=== PATIENT | female | born 1960 | race Caucasian/White ===

== ENCOUNTER 2016-09-07 08:54 | Emergency (ER) | payer MEDICARE, MEDICAID ==
[2016-09-07 09:38] LABS: Prothrombin Time (Patient) 18.4 Seconds (9.4-11.4)
[2016-09-07 09:40] LABS: INR 1.77 INR (0.90-1.10)
[2016-09-07 09:48] LABS: Urine Bilirubin Negative (NEGATIVE); Urine Blood Negative /ul (NEGATIVE); Urine Ketone Negative (NEGATIVE); Urine Nitrite Negative (NEGATIVE); Urine Protein Negative (NEGATIVE); Urine Specific Gravity 1.025 SP.GR. (1.005-1.010); Urine Urobilinogen Normal (NORMAL); Urine pH 6.5 pH (5.0-7.0)
[2016-09-07 09:57] LABS: Urine Appearance Clear; Urine Bacteria 2+; Urine Color Yellow; Urine RBC None Seen /hpf (0-5); Urine WBC 0-5 /hpf (0-5)
[2016-09-07 10:14] VITALS: BP 133/80
--- NOTE | 2016-09-07 10:23 | ERNOTE ---
ER Female HPI Stated Complaint: UTI Presenting Symptoms: dysuria Time Seen by Provider: 09/07/16 09:10 Source: patient Exam Limitations: no limitations Immunizations: IMMUNIZATION HX Immunizations Up to Date Yes History of Influenza Vaccine Yes Hx Pneumococcal Vaccination No Allergies/Adverse Reactions: Allergies No Known Allergies Allergy (Verified 09/07/16 09:10) Home Medications: HOME MEDICATIONS Lisinopril 40 mg PO DAILY 08/10/13 [Last Taken 08/02/14] Omeprazole [Prilosec] 40 mg PO DAILY 12/26/13 [Last Taken 08/02/14] Sertraline HCl 50 mg PO DAILY 08/10/16 [Last Taken Unknown] Warfarin Sodium [Coumadin] 12 mg PO DAILY 08/10/16 [Last Taken Unknown] Nitrofurantoin/Nitrofuran Mac [Macrobid] 100 mg PO BID #20 cap 09/07/16 [Last Taken Unknown] - History of Present Illness Narrative: On 08/22/2016 this 55-year-old woman fell resulting in some mild low back pain which has persisted. The back pain has grown a little worse, and is exacerbated by moving turning or changing position. About one week ago she began to also have some dysuria, which has worsened. Now there is also urgency of urination and frequency of urination, as well as voiding in small amounts. There has been no fever, nor any other symptoms. She does note her urine is a little more yellow than normal. She takes Coumadin every day because of a previous stroke. Timing: Present: getting worse Quality: Present: mild Onset Location: Present: urethral Radiation: Present: none Activities at Onset: Present: none Prior Abdominal Problems: Present: similar symptoms Associated Symptoms: Present: dysuria, urinary frequency, polyuria Prior Treatment: Absent: recently seen, currently on antibiotics Review of Systems - Review of Systems Constitutional: Present: no symptoms reported EYE: Present: no symptoms reported ENT: Present: no symptoms reported Respiratory: Present: no symptoms reported Cardiology: Present: no symptoms reported Gastrointestinal/Abdominal: Present: no symptoms reported Genitourinary: Present: See HPI Musculoskeletal: Present: See HPI Skin: Present: no symptoms reported Neurological: Present: no symptoms reported Endocrine: Present: no symptoms reported Hematologic/Lymphatic: Present: no symptoms reported Psych: Present: no symptoms reported All Other Systems: All systems neg except as marked - Patient's Past Medical History Patient History - Medical: Chronic Pain, Kidney stone, Renal Disease Patient History - Cardiac/Respiratory: CVA/Stroke, Hypertension Patient History - Cancer: No Hx of Cancer Patient History - Surgical Procedures: Back Surgery, Hysterectomy, Other - Family History Mother Family History - Cardiac/Respiratory: No pertinent hx dad Family History - Medical: Diabetes Type 2 Family History - Cardiac/Respiratory: No pertinent hx - Social History Living Situations: home Does anyone smoke in the home?: No Alcohol Use: none Drug Use: none Physical Exam - Physical Exam General Appearance: Present: wd/wn, alert, no apparent distress, other - uses a cane, but it is in the car, didn't bring it into the ER Eye Exam: Normal inspection: bilateral, PERRL: bilateral, EOMI: bilateral Ears, Nose, Throat: Present: normal ENT inspection, hearing grossly normal Neck: Present: normal inspection Respiratory: Present: no respiratory distress, normal breath sounds Cardiovascular/Chest: Present: regular rate, rhythm, no murmur Gastrointestinal/Abdominal: Present: normal bowel sounds, nontender, nondistended, soft, no organomegaly Back Exam: Present: normal inspection, no CVA tenderness, other - tender across low back Extremity Exam: Present: normal inspection, no edema Neurological Exam: Present: alert, oriented, normal mood/affect Skin Exam: Present: normal color, warm/dry ED Progress - Results and Orders Patient's Lab Results:: I have reviewed the patient's lab results. - Vital Signs Patient's Vital Signs:: I have reviewed the patient's vital signs. Vital Signs: Vital Signs 09/07/16 09/07/16 09:05 10:13 Temperature 35.9 C L Pulse Rate 88 74 Respiratory 12 12 Rate Blood Pressure 109/51 133/80 O2 Sat by Pulse 94 98 Oximetry - Progress/Reassessment Chief Complaint: Genitourinary Problem Departure Clinical Impression: Dysuria Low back pain Qualifiers: Chronicity: acute Back pain laterality: midline Sciatica presence: without sciatica Qualified Code(s): M54.5 - Low back pain - Departure Disposition: Home self-care Condition: Good Instructions: Dysuria, Back Pain, Adult Additional Instructions: We are starting an antibiotic today. For this reason, obtain an extra Prothrombin time in 2 days. Followup with your doctor later this week. Prescriptions: Nitrofurantoin/Nitrofuran Mac [Macrobid] 100 mg PO BID #20 cap
== END 2016-09-07 10:29 | disposition home or self-care (01) ==
LOC: ER 08:54
DX: R30.0 Dysuria (principal); M54.5 Low back pain; K12.0 Recurrent oral aphthae; Z90.710 Acquired absence of both cervix and uterus; I10 Essential (primary) hypertension

== ENCOUNTER 2016-09-17 15:17 | Emergency (ER) | payer MEDICARE, MEDICAID ==
[2016-09-17] MEDS ORDERED: oxyCODONE HCL/ACETAMINOPHEN 1 TAB TABLET PO ONE (15:32)
[2016-09-17] MEDS ORDERED: ORPHENADRINE CITRATE 100 MG TABLET.SA PO ONE ×2 (15:32→15:40)
--- NOTE | 2016-09-17 15:37 | ERNOTE ---
Back Pain ER HPI Date of Service: 09/17/16 Presenting Symptoms: injury/pain to back Time Seen by Provider: 09/17/16 15:29 Source: patient Exam Limitations: no limitations Immunizations: IMMUNIZATION HX Immunizations Up to Date Yes History of Influenza Vaccine Yes Hx Pneumococcal Vaccination No Allergies/Adverse Reactions: Allergies No Known Allergies Allergy (Verified 09/17/16 15:27) Home Medications: HOME MEDICATIONS Lisinopril 40 mg PO DAILY 08/10/13 [Last Taken 08/02/14] Omeprazole [Prilosec] 40 mg PO DAILY 12/26/13 [Last Taken 08/02/14] Sertraline HCl 50 mg PO DAILY 08/10/16 [Last Taken Unknown] Warfarin Sodium [Coumadin] 12 mg PO DAILY 08/10/16 [Last Taken Unknown] Acyclovir [Zovirax 5% Ointment] 1 appl TP 5XD #1 tube 09/07/16 [Last Taken Unknown] Orphenadrine Citrate [Norflex] 100 mg PO Q12H #10 tablet.sa 09/17/16 [Last Taken Unknown] Oxycodone HCl/Acetaminophen [Percocet 5-325 mg Tablet] 1 each PO Q8H #20 tablet 09/17/16 [Last Taken Unknown] Narrative: Patient comes due to a generalized back pain. Patient reported that her back pain got worse after her fall on 2015. Patient has not been able to follow up with her Primary Care Provider. Timing: Reports: constant, getting worse Quality/Severity: Reports: moderate Location of pain: Reports: upper back, mid back, lower back, no radiation Activities at Onset: Reports: none Recent Injury?: Reports: yes - 2015 Possible Precipitating Factor: Reports: lifting, turning/bending, trauma Modifying Factors - (Improves): Reports: nothing Modifying Factors - (Worsens): Reports: supine position, upright position, movement to right, movement to left, movement flexion, cough/deep breaths Associated Symptoms: Denies: fever/chills, sweating, constipation/incontinence, nausea/vomiting, problems urinating, difficulty walking, lightheadedness, numbess/weakness in legs Prior Treament: Reports: recently seen - Patient was seen due to her fall at this facility Review of Systems - Review of Systems Constitutional: Present: no symptoms reported EYE: Present: no symptoms reported ENT: Present: no symptoms reported Respiratory: Present: no symptoms reported Gastrointestinal/Abdominal: Present: no symptoms reported Genitourinary: Present: no symptoms reported Musculoskeletal: Present: muscle pain, muscle stiffness Skin: Present: no symptoms reported Neurological: Present: no symptoms reported Endocrine: Present: no symptoms reported Hematologic/Lymphatic: Present: no symptoms reported Psych: Present: no symptoms reported - Patient's Past Medical History Patient History - Medical: Chronic Pain, Kidney stone, Renal Disease Patient History - Cardiac/Respiratory: CVA/Stroke, Hypertension Patient History - Cancer: No Hx of Cancer Patient History - Surgical Procedures: Back Surgery, Hysterectomy, Other - Family History Mother Family History - Cardiac/Respiratory: No pertinent hx dad Family History - Medical: Diabetes Type 2 Family History - Cardiac/Respiratory: No pertinent hx - Social History Living Situations: home Does anyone smoke in the home?: No Smoking Status: Current every day smoker Have you smoked in the past 12 months: Yes Alcohol Use: none Drug Use: none Physical Exam - Physical Exam General Appearance: Present: wd/wn, alert, no apparent distress Ears, Nose, Throat: Present: normal ENT inspection, hearing grossly normal, normal pharynx Neck: Present: normal inspection, nontender Respiratory: Present: no respiratory distress, normal breath sounds, no accessory muscle use, chest nontender, lungs clear Cardiovascular/Chest: Present: regular rate, rhythm, no murmur, normal peripheral pulses Gastrointestinal/Abdominal: Present: normal bowel sounds, nontender, nondistended, soft, no organomegaly Back Exam: Present: no CVA tenderness, muscle spasm - There is tenderness all over the back area. No mid line tenderness found.. Absent: vertebral tenderness Neurological Exam: Present: alert, oriented, normal mood/affect, no motor/ sensory deficits Skin Exam: Present: normal color, warm/dry Lymphatic Exam: Present: no adenopathy ED Progress - Date and Time Seen: Date and Time: 09/17/16 15:41 Patient with no fever, no urine retention and with a generalized back pain. Patient will be given pain medication and muscle relaxant and is to follow up with her PCP. - Vital Signs Patient's Vital Signs:: I have reviewed the patient's vital signs. Vital Signs: Vital Signs 09/17/16 15:25 Temperature 36.3 C L Pulse Rate 95 Respiratory 14 Rate Blood Pressure 179/84 O2 Sat by Pulse 98 Oximetry - Progress/Reassessment Chief Complaint: Back Pain - Transfer of Care Expected Disposition: Discharge Departure Clinical Impression: Muscle spasm Back pain Qualifiers: Back pain location: low back pain Chronicity: unspecified Back pain laterality : unspecified Sciatica presence: without sciatica Qualified Code(s): M54.5 - Low back pain - Departure Disposition: Home self-care Condition: Stable Instructions: Back Pain, Adult, Muscle Cramps and Spasms Referrals: [Primary Care Provider] - Prescriptions: Orphenadrine Citrate [Norflex] 100 mg PO Q12H #10 tablet.sa Oxycodone HCl/Acetaminophen [Percocet 5-325 mg Tablet] 1 each PO Q8H #20 tablet
[2016-09-17] MEDS ORDERED: oxyCODONE HCL/ACETAMINOPHEN 1 TAB TABLET ONE (15:39)
[2016-09-17 15:57] VITALS: BP 145/95
== END 2016-09-17 15:54 | disposition home or self-care (01) ==
LOC: ER 15:17
DX: M62.830 Muscle spasm of back (principal); M54.5 Low back pain; F17.210 Nicotine dependence, cigarettes, uncomplicated; Z87.442 Personal history of urinary calculi; I10 Essential (primary) hypertension; Z79.01 Long term (current) use of anticoagulants

== ENCOUNTER 2016-09-24 13:19 | Emergency (ER) | payer MEDICARE, MEDICAID ==
[2016-09-24 13:29] VITALS: BP 144/82
--- NOTE | 2016-09-24 14:20 | ERNOTE ---
Back Pain ER HPI Date of Service: 09/24/16 Presenting Symptoms: injury/pain to back Time Seen by Provider: 09/24/16 13:45 Source: patient Exam Limitations: no limitations Immunizations: IMMUNIZATION HX Immunizations Up to Date Yes History of Influenza Vaccine Yes Hx Pneumococcal Vaccination No Allergies/Adverse Reactions: Allergies No Known Allergies Allergy (Verified 09/24/16 13:29) Home Medications: HOME MEDICATIONS Lisinopril 40 mg PO DAILY 08/10/13 [Last Taken 08/02/14] Omeprazole [Prilosec] 40 mg PO DAILY 12/26/13 [Last Taken 08/02/14] Sertraline HCl 50 mg PO DAILY 08/10/16 [Last Taken Unknown] Warfarin Sodium [Coumadin] 12 mg PO DAILY 08/10/16 [Last Taken Unknown] Acyclovir [Zovirax 5% Ointment] 1 appl TP 5XD #1 tube 09/07/16 [Last Taken Unknown] Orphenadrine Citrate [Norflex] 100 mg PO Q12H #10 tablet.sa 09/17/16 [Last Taken Unknown] Oxycodone HCl/Acetaminophen [Percocet 5-325 mg Tablet] 1 each PO Q8H #20 tablet 09/17/16 [Last Taken Unknown] Orphenadrine Citrate [Norflex] 100 mg PO Q12H PRN #12 tablet.sa 09/24/16 [Last Taken Unknown] oxyCODONE HCL/ACETAMINOPHEN [Percocet 5 MG/325 MG] 1 tab PO TID PRN #10 tablet 09/24/16 [Last Taken Unknown] Narrative: Patient presents for being out of her pain medications. She relates that she had an appointment today at her doctor in [place] to get medications refilled but missed this d/t her mother being sick. She had a fall in July and has been having back pain thoracic ever since. She was on percocet and norflex but is now out of these medications. This is the exact same pain she has been having, nothgin different about it. Has been seen for this. No new Sx. No acute N/T/W. No fever. No CP or SOB. Pain can be severe with spasm and movement. meds helped when she had them. Timing: Reports: constant Quality/Severity: Reports: severe Location of pain: Reports: mid back Activities at Onset: Reports: other - fall Recent Injury?: Reports: yes Possible Precipitating Factor: Reports: fall/near fall Modifying Factors - (Improves): Reports: other - pmeds - Percocet and Norflex Modifying Factors - (Worsens): Reports: movement to right, movement to left Associated Symptoms: Denies: fever/chills, constipation/incontinence, difficulty walking, numbess/weakness in legs Prior Treament: Reports: treated by physician Review of Systems - Review of Systems Constitutional: Absent: fever Respiratory: Absent: shortness of breath Cardiology: Absent: chest pain Gastrointestinal/Abdominal: Absent: abdominal pain Genitourinary: Absent: dysuria Musculoskeletal: Present: See HPI Skin: Absent: rash Neurological: Absent: weakness, numbness, tingling - Patient's Past Medical History Patient History - Medical: Chronic Pain, Kidney stone, Renal Disease Patient History - Cardiac/Respiratory: CVA/Stroke, Hypertension Patient History - Cancer: No Hx of Cancer Patient History - Surgical Procedures: Back Surgery, Hysterectomy, Other - Family History Mother Family History - Cardiac/Respiratory: No pertinent hx dad Family History - Medical: Diabetes Type 2 Family History - Cardiac/Respiratory: No pertinent hx - Social History Living Situations: home Does anyone smoke in the home?: No Alcohol Use: none Drug Use: none Physical Exam - Physical Exam General Appearance: Present: alert, no apparent distress Eye Exam: Normal inspection: bilateral Ears, Nose, Throat: Present: normal ENT inspection Neck: Present: normal inspection Respiratory: Present: no respiratory distress, normal breath sounds, no accessory muscle use, lungs clear Cardiovascular/Chest: Present: regular rate, rhythm Gastrointestinal/Abdominal: Present: normal bowel sounds, nontender, soft, no organomegaly Back Exam: Present: other - No point vertebral tendenress. there is muscular tenderness right thoracic paraspinal muscles diffusely. This completely reproduces her pain.. 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 Absent: motor weakness DTR: N=norm/NB=norm/brisk/A=abs/DD=dull/dimin/HC=hyperactive: Knee (R): Normal, Knee (L): Normal Skin Exam: Absent: skin rash ED Progress - Vital Signs Patient's Vital Signs:: I have reviewed the patient's vital signs. Vital Signs: Vital Signs 09/24/16 13:25 Temperature 36.0 C L Pulse Rate 92 Respiratory 12 Rate Blood Pressure 144/82 O2 Sat by Pulse 100 Oximetry - Progress/Reassessment Chief Complaint: Back Pain Progress:: Unchanged Progress Note-Subjective: 09/24/16 14:14 Patient wishes a medication refill. I offered her x-rays but she declines this , understands risks and benefits. No suggestion of neuro deficit or infectious process. I discussed warning signs and reasons to return as well as the need for close f/u. Departure Clinical Impression: Back pain - Departure Disposition: Home self-care Condition: Stable Instructions: Back Pain, Adult Additional Instructions: Rest. No driving with pain medications. See your doctor within the next 3 days. Return if you change your mind about having x-rays as offered, if you develop numbness, tingling, weakness or if your condition worsens or changes in any way. Prescriptions: Orphenadrine Citrate [Norflex] 100 mg PO Q12H PRN #12 tablet.sa PRN Reason: Pain oxyCODONE HCL/ACETAMINOPHEN [Percocet 5 MG/325 MG] 1 tab PO TID PRN #10 tablet PRN Reason: Pain
== END 2016-09-24 14:45 | disposition home or self-care (01) ==
LOC: ER 13:19
DX: M54.9 Dorsalgia, unspecified (principal); Z87.442 Personal history of urinary calculi; I10 Essential (primary) hypertension; Z79.01 Long term (current) use of anticoagulants; I63.9 Cerebral infarction, unspecified

== ENCOUNTER 2016-10-11 15:06 | Emergency (ER) | payer MEDICARE, MEDICAID ==
[2016-10-11 15:17] VITALS: BP 189/98
[2016-10-11] MEDS ORDERED: KETOROLAC TROMETHAMINE 30 MG/ML VIAL IM ONE (15:45)
[2016-10-11] MEDS ORDERED: diphenhydrAMINE HCL 50 MG/ML VIAL IM ONE (15:45)
[2016-10-11] MEDS ORDERED: METOCLOPRAMIDE HCL 5 MG/ML VIAL IM ONE (15:45)
--- NOTE | 2016-10-11 15:52 | ERNOTE ---
Headache ER HPI - Narrative Date of Service: 10/11/16 - General Presenting Symptoms: "migraine" Time Seen by Provider: 10/11/16 15:38 Source: patient Exam Limitations: no limitations - Immun/Allergies/Home Medications Immunizations: IMMUNIZATION HX Immunizations Up to Date Yes History of Influenza Vaccine Yes Hx Pneumococcal Vaccination No Allergies/Adverse Reactions: Allergies No Known Allergies Allergy (Verified 10/11/16 15:17) Home Medications: HOME MEDICATIONS Lisinopril 40 mg PO DAILY 08/10/13 [Last Taken 08/02/14] Omeprazole [Prilosec] 40 mg PO DAILY 12/26/13 [Last Taken 08/02/14] Sertraline HCl 50 mg PO DAILY 08/10/16 [Last Taken Unknown] Warfarin Sodium [Coumadin] 10 mg PO DAILY 08/10/16 [Last Taken Unknown] Gabapentin 400 mg PO TID 10/11/16 [Last Taken Unknown] - History of Present Illness Narrative: Pt. comes in with c/o migraine for three days. Pt. 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 Pt. denies any SOB, CP, vision changes, numbness, weakness but does state that she has dizziness, nausea, and photophobia. Pt. has a hx of migraine and took excedrin migraine but denies any alleviating factors. Review of Systems - Review of Systems Constitutional: Present: no symptoms reported. Absent: fever, chills, weakness , fatigue, malaise EYE: Present: no symptoms reported ENT: Present: no symptoms reported Respiratory: Present: no symptoms reported. Absent: shortness of breath, cough , wheezing Cardiology: Present: no symptoms reported. Absent: chest pain, palpitations, edema Musculoskeletal: Present: no symptoms reported. Absent: back pain, joint pain Neurological: Present: headache, dizziness/light-headedness. Absent: weakness, numbness, tingling Hematologic/Lymphatic: Present: no symptoms reported, other - coumadin therapy. Absent: easy bruising, easy bleeding All Other Systems: All systems neg except as marked - Patient's Past Medical History Patient History - Medical: Chronic Pain, Kidney stone, Migraines, Renal Disease Patient History - Cardiac/Respiratory: CVA/Stroke Patient History - Cancer: No Hx of Cancer Patient History - Surgical Procedures: Back Surgery, Hysterectomy, Other Patient History - Other: None LMP (females 10-50): Menopausal - Family History Mother Family History - Cardiac/Respiratory: No pertinent hx dad Family History - Medical: Diabetes Type 2 Family History - Cardiac/Respiratory: No pertinent hx - Social History Living Situations: home Abuse History: No History of abuse Psych History: No pertinent hx Does anyone smoke in the home?: No Smoking Status: Current every day smoker Have you smoked in the past 12 months: Yes Alcohol Use: none Drug Use: none - Immunizations Immunizations Up to Date: Yes Hx Pneumococcal Vaccination: No History of Influenza Vaccine: Yes Physical Exam - Physical Exam General Appearance: Present: wd/wn, alert, no apparent distress Eye Exam: Normal inspection: bilateral, PERRL: bilateral, EOMI: bilateral Ears, Nose, Throat: Present: normal ENT inspection, hearing grossly normal, normal pharynx Neck: Present: normal inspection, nontender. 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 Absent: facial droop, motor weakness Skin Exam: Present: normal color, warm/dry. Absent: pallor, skin rash ED Progress - Vital Signs Patient's Vital Signs:: I have reviewed the patient's vital signs. Vital Signs: Vital Signs 10/11/16 15:12 Temperature 37.1 C Pulse Rate 99 Respiratory 16 Rate Blood Pressure 189/98 O2 Sat by Pulse 100 Oximetry - Progress/Reassessment Chief Complaint: Headache Progress:: Pain free at discharge Departure Clinical Impression: Migraine Qualifiers: Migraine type: without aura Status migrainosus presence: without status migrainosus Intractability: not intractable Qualified Code(s): G43.009 - Migraine without aura, not intractable, without status migrainosus - Departure Disposition: Home self-care Condition: Good Instructions: Recurrent Migraine Headache, [id number] Additional Instructions: Please follow up with primary provider in 2-3 days
[2016-10-11] MEDS ORDERED: METOCLOPRAMIDE HCL 5 MG/ML VIAL ONE (16:14)
[2016-10-11] MEDS ORDERED: KETOROLAC TROMETHAMINE 30 MG/ML VIAL ONE (16:14)
[2016-10-11] MEDS ORDERED: diphenhydrAMINE HCL 50 MG/ML VIAL ONE (16:14)
--- OUTSIDE RECORDS SUMMARY | 2016-10-11 16:28 | XMS REPORT | Continuity of Care Document ---
:1960 Demographics Address [address] [place] [address] Mobile Phone [phone] Home Phone [phone] Email Address Preferred Language Unknown Marital Status Non- Islam Affiliation Yazidism Race White Ethnic Group Non- Author Organization [facility] ([facility]) Address [address] [place] [address] Phone [phone] Care Team Providers Name Role Phone Vibha Cavazos Primary Care Provider [phone] Source Comments This disclosure is being made pursuant to the Care Everywhere program, applicable federal and state laws, and may not contain all informaitonavailable regarding this patient.[facility] ([facility]) Active Allergies and Adverse Reactions No Known Allergies Current Medications Prescription Sig. Disp. Refills Start Date End Date Status omeprazole 40 mg Take 40 mg by Active extended release mouth daily. capsule acetaminophen 325 mg Take 2 Tabs by 180 Tab 0 08/31/2014 Active tablet mouth 4 times daily. Indications: HEADACHE DISORDER lisinopril 20 mg Take 20 mg by Active tablet mouth daily. dextromethorphan-guaiF Take 1 capsule by Active ENesin (CORICIDIN HBP) mouth daily as 10-200 mg per capsule needed. multivitamin tablet Take 1 tablet by Active mouth daily. atorvastatin 80 mg Take 1 tablet (80 30 tablet 11 03/15/2016 Active tablet mg total) by mouth every evening. gabapentin 300 mg Take 1 capsule 90 capsule 3 03/15/2016 Active capsule (300 mg total) by mouth 3 times daily. warfarin 3 mg tablet Take 1 tablet (3 30 tablet 0 03/15/2016 Active mg total) by mouth daily. Active Problems Problem Noted Date Falls 01/08/2015 Mixed hyperlipidemia 01/08/2015 s/p acute ischemic stroke of the left thalamus (07/13/14) 08/29/2014 Ataxia 07/13/2014 Sensory loss 07/13/2014 URI (upper respiratory infection) 07/13/2014 Lumbar pain 08/10/2013 Unspecified essential hypertension 03/19/2013 Contact dermatitis 02/28/2013 Muscle pain, lumbar 02/28/2013 Bladder spasm 10/31/2012 Neuropathic pain of both legs 09/28/2012 History of low back pain 09/28/2012 Kidney stone 09/17/2012 Hematuria 04/02/2012 Resolved Problems Problem Noted Date Resolved Date Hemiplegic migraine 03/15/2016 03/15/2016 S/P administration of tPA (rtPA) in a different facility 07/13/20142015 within the last 24 hours prior to admission to current facility Overview: -Optimize neurologic perfusion: Flat bedrest for 24 hrs as best tolerated. HCT completed locally MRI/MRA Thereapy: Antiplatelet: hold ASA. To be started after [address] shows no bleed. HLD: obtain LDL, start atorvastatin: 80 mg tomorrow Blood pressure control: Maintain SBP< 185 and DBP<105, use IV Labetalol or hydralazine prn for BP control Cardiac: Continuous telemetry and oximetry EKG: NSR Secondary Control of risk factors: To be obtained with fasting AM labs: LFT, LIPID, A1C Bedside swallow per nursing q2h x4 vitals and neuro checks then q4h PT/OT/speech to evaluate upon clearance of bedrest. Injury, other and unspecified, knee, leg, ankle, and foot 03/19/20132012 Contusion of leg, right 03/19/2013 07/21/2013 Thoracic sprain 03/19/2013 07/21/2013 Bloody nose 02/28/2013 07/21/2013 Urinary tract infection 10/31/2012 08/29/2014 Fever, unspecified 10/31/2012 07/21/2013 Left flank pain 09/20/2012 07/21/2013 GERD (gastroesophageal reflux disease) 09/17/2012 08/29/2014 Abdominal pain in T10-11 L dermatome 04/06/2012 09/17/2012 Elevated blood pressure reading without diagnosis of 03/31/2012 07/21/2013 hypertension Dysuria 03/31/2012 04/02/2012 Rib pain 03/31/2012 09/17/2012 Health education/counseling 03/31/2012 07/21/2013 Immunizations Name Dates Previously Given Next Due Influenza, PF 09/17/2012 Influenza, quadrivalent PF 07/21/2014,07/21/2013 Pneumococcal Polysaccharide, PPSV23 (Pneumovax 23) 07/21/2014 Tdap 03/31/2012 Social History Tobacco Use Types Packs/Day Years Used Date Former Smoker Cigarettes 0.1 3 Smokeless Tobacco: Never Used Tobacco Cessation:Counseling Given: Yes Comments:1-2 per day Alcohol Use Drinks/Week oz/Week Comments Yes 1 Standard drinks or equivalent 0.5 Last Filed Vital Signs Vital Sign Reading Time Taken Blood Pressure 127/69 03/15/2016 3:02 PM CDT Pulse 74 03/14/2016 6:30 PM CDT Temperature 36.5 C (97.7 F) 03/15/2016 1:50 PM CDT Respiratory Rate 15 03/14/2016 6:30 PM CDT Height 1.6 m (5' 3") 03/14/2016 6:30 PM CDT Weight 66 kg (145 lb 8.1 oz) 03/14/2016 6:45 PM CDT Body Mass Index 25.78 03/14/2016 6:45 PM CDT Oxygen Saturation 97% 03/15/2016 2:35 PM CDT Plan of Care Patient Goal Type Goal Diet Increase water intake Lifestyle Quit smoking / using tobacco Health Maintenance Due Date Last Done Comments HCV Screening 1960 Hepatitis B Vaccine (1 of 3 - 1960 Primary Series) MMR Vaccine 1978 Cervical Cancer Screening 1990 Colonoscopy 2010 FOBT Colon Cancer Screening 2010 Sigmoidoscopy Colon Cancer 2010 Screening Mammogram 09/28/2013 09/28/2012 Influenza Vaccine: Seasonal 03/31/2016 07/21/2014, (#1) 07/21/2013, 09/17/2012 Lipid Disorder Screening 03/15/2021 03/15/2016, Additional history exists 08/30/2014, 07/14/2014 Td Vaccine 03/31/2022 03/31/2012 Tdap Vaccine Completed 03/31/2012 Pneumococcal Vaccine Completed 07/21/2014 Results from Last 3 Months Not on file
== END 2016-10-11 17:45 | disposition home or self-care (01) ==
LOC: ER 15:06
DX: G43.009 Migraine without aura, not intractable, without status migrainosus (principal); Z87.442 Personal history of urinary calculi; F17.210 Nicotine dependence, cigarettes, uncomplicated; Z79.01 Long term (current) use of anticoagulants

== ENCOUNTER 2016-10-19 20:53 | Emergency (ER) | payer MEDICARE, MEDICAID ==
[2016-10-19 21:17] LABS: Urine Appearance Clear; Urine Color Yellow
[2016-10-19 21:18] LABS: Urine Bacteria None Seen; Urine Bilirubin Negative (NEGATIVE); Urine Blood Negative /ul (NEGATIVE); Urine Ketone Negative (NEGATIVE); Urine Nitrite Negative (NEGATIVE); Urine Protein Negative (NEGATIVE); Urine RBC None Seen /hpf (0-5); Urine Specific Gravity 1.025 SP.GR. (1.005-1.010); Urine Urobilinogen Normal (NORMAL); Urine WBC 0-5 /hpf (0-5)
[2016-10-19] MEDS ORDERED: oxyCODONE HCL/ACETAMINOPHEN 1 TAB TABLET PO ONE (21:49)
[2016-10-19] MEDS ORDERED: oxyCODONE HCL/ACETAMINOPHEN 1 TAB TABLET ONE (21:51)
--- NOTE | 2016-10-19 21:54 | ERNOTE ---
ER Female HPI Date of Service: 10/19/16 Stated Complaint: possable kidney stone Presenting Symptoms: other - Right flank, RUQ Time Seen by Provider: 10/19/16 21:53 Immunizations: IMMUNIZATION HX Immunizations Up to Date Yes History of Influenza Vaccine Yes Hx Pneumococcal Vaccination No Allergies/Adverse Reactions: Allergies No Known Allergies Allergy (Verified 10/11/16 15:17) Home Medications: HOME MEDICATIONS Lisinopril 40 mg PO DAILY 08/10/13 [Last Taken 08/02/14] Omeprazole [Prilosec] 40 mg PO DAILY 12/26/13 [Last Taken 08/02/14] Sertraline HCl 50 mg PO DAILY 08/10/16 [Last Taken Unknown] Warfarin Sodium [Coumadin] 10 mg PO DAILY 08/10/16 [Last Taken Unknown] Gabapentin 400 mg PO TID 10/11/16 [Last Taken Unknown] oxyCODONE HCL/ACETAMINOPHEN [Percocet 5 MG/325 MG] 1 tab PO Q4H PRN #30 tab [Last Taken Unknown] - History of Present Illness Narrative: Presents with c/o right flank and Right sided rib pain, onset earlier today. Pt thinks it might be due to kidney stone. She has a h/o kidney stones. Denies any dysuria or hematuria, but claims to have been coughing most of the day. Reports earlier episode of nausea. Date (Duration): 10/19/16 Timing: Present: constant, getting worse Quality: Present: severe, aching, sharpness, stabbing Onset Location: Present: right flank Radiation: Present: none Activities at Onset: Present: none Prior Abdominal Problems: Present: none Modifying Factors - (Worsens): Present: coughing, movement Associated Symptoms: Present: nausea, abdominal pain - RUQ. Absent: fever/ chills, diaphoresis, dysuria, urinary frequency, polyuria, loss of bladder control, low back pain, mass, nocturia Review of Systems - Review of Systems Constitutional: Present: no symptoms reported EYE: Present: no symptoms reported ENT: Present: no symptoms reported Respiratory: Present: no symptoms reported Cardiology: Present: no symptoms reported Gastrointestinal/Abdominal: Present: See HPI Genitourinary: Present: no symptoms reported Musculoskeletal: Present: no symptoms reported Skin: Present: no symptoms reported Neurological: Present: no symptoms reported Endocrine: Present: no symptoms reported Hematologic/Lymphatic: Present: no symptoms reported Psych: Present: no symptoms reported All Other Systems: All systems neg except as marked - Patient's Past Medical History Patient History - Medical: Chronic Pain, Kidney stone, Migraines, Renal Disease Patient History - Cardiac/Respiratory: CVA/Stroke Patient History - Cancer: No Hx of Cancer Patient History - Surgical Procedures: Back Surgery, Hysterectomy, Other Patient History - Other: None - Family History Mother Family History - Cardiac/Respiratory: No pertinent hx dad Family History - Medical: Diabetes Type 2 Family History - Cardiac/Respiratory: No pertinent hx - Social History Living Situations: alone Abuse History: No History of abuse Psych History: No pertinent hx Does anyone smoke in the home?: No Smoking Status: Current every day smoker Do you dip or chew tobacco: No Alcohol Use: rarely Drug Use: none - Immunizations Immunizations Up to Date: Yes Hx Pneumococcal Vaccination: No History of Influenza Vaccine: Yes Physical Exam - Physical Exam General Appearance: Present: alert, mild distress - Due to pain Eye Exam: Normal inspection: bilateral, PERRL: bilateral, EOMI: bilateral Neck: Present: normal inspection, nontender Respiratory: Present: no respiratory distress, normal breath sounds, no accessory muscle use, lungs clear, chest tenderness - Right lower rib, just anterior to mid axillary line. Cardiovascular/Chest: Present: regular rate, rhythm, no murmur Gastrointestinal/Abdominal: Present: normal bowel sounds, nondistended, soft, no organomegaly, tenderness - RUQ/right flank Neurological Exam: Present: alert, oriented Skin Exam: Present: normal color, warm/dry ED Progress - Results and Orders Patient's Lab Results:: I have reviewed the patient's lab results. - Vital Signs Patient's Vital Signs:: I have reviewed the patient's vital signs. Vital Signs: Vital Signs 10/19/16 21:01 Temperature 36.7 C Pulse Rate 90 Respiratory 16 Rate Blood Pressure 135/99 O2 Sat by Pulse 96 Oximetry - EKG EKG read: Interp. by ks - X-Ray X-Ray #1 X-Ray: chest - no acute finding X-Ray #2 X-Ray: ribs - Negative - Progress/Reassessment Chief Complaint: Genitourinary Problem Progress:: Improved Departure Clinical Impression: Sprain of ribs, initial encounter Qualifiers: Encounter type: initial encounter Qualified Code(s): S23.41XA - Sprain of ribs , initial encounter - Departure Disposition: Home self-care Condition: Good Instructions: Chest Wall Pain, [id number] Prescriptions: oxyCODONE HCL/ACETAMINOPHEN [Percocet 5 MG/325 MG] 1 tab PO Q4H PRN #30 tab PRN Reason: Pain
--- OUTSIDE RECORDS SUMMARY | 2016-10-19 22:02 | XMS REPORT | Continuity of Care Document ---
:1960 Demographics Address [address] [place] [address] Mobile Phone [phone] Home Phone [phone] Email Address Preferred Language Unknown Marital Status Non- Shinto Affiliation Scientology Race White Ethnic Group Non- Author Organization [facility] ([facility]) Address [address] [place] [address] Phone [phone] Care Team Providers Name Role Phone Vibha Cavazos Primary Care Provider [phone] Source Comments This disclosure is being made pursuant to the Care Everywhere program, applicable federal and state laws, and may not contain all informaitonavailable regarding this patient.[facility] ([facility]) Active Allergies and Adverse Reactions No Known [...]
[2016-10-19 22:22] LABS: Hematocrit 33.9 % (37.0-47.0); Hemoglobin 10.6 gm/dL (12.5-16.0); Mean Corpuscular Hemoglobin 26.6 pg (27-31); Mean Corpuscular Hgb Conc 31.3 g/dl (32-36); Mean Platelet Volume 9.7 fl (6.0-9.5); Neutrophil # 6.1 K/mm3 (1.3-6.0); Neutrophil % 55.3 % (42-75.0); Platelet Count 390 K/mm3 (150-450); Red Blood Count 3.99 M/mm3 (4.2-5.4); Red Cell Distribution Width 17.3 % (11.5-14.0)
[2016-10-19 22:37] LABS: Albumin * 3.7 gm/dl (3.4-5.0); Anion Gap 11.6 mmol/L (6.8-13.8); BUN/Creatinine Ratio 14.3 (9.0-21.6); Bilirubin, Total 0.2 mg/dL (0.0-1.1); Ca. Corrected For Albumin 8.7 mg/dL (8.4-10.2); Calcium * 8.8 mg/dL (7.9-10.9); Carbon Dioxide 28.2 mmol/L (24-32.6); Potassium 3.8 mmol/L (3.4-4.6); Total Protein 6.8 gm/dL (6.2-8.2)
[2016-10-19 22:53] LABS: Prothrombin Time (Patient) 12.2 Seconds (9.4-11.4)
[2016-10-19 23:15] LABS: INR 1.17 INR (0.90-1.10)
[2016-10-20 01:02] VITALS: BP 160/68
== END 2016-10-20 01:01 | disposition home or self-care (01) ==
LOC: ER 20:53
DX: S23.41XA Sprain of ribs, initial encounter (principal); F17.210 Nicotine dependence, cigarettes, uncomplicated; Z87.442 Personal history of urinary calculi; I63.9 Cerebral infarction, unspecified; Z79.01 Long term (current) use of anticoagulants

== ENCOUNTER 2016-10-28 22:01 | Emergency (ER) | payer MEDICARE, MEDICAID ==
[2016-10-28] MEDS ORDERED: ALBUTEROL SULFATE 2.5 MG/0.5 ML VIAL.NEB IH ONE ×2 (22:28→22:32)
[2016-10-28] MEDS ORDERED: BENZONATATE 100 MG CAPSULE PO ONE ×2 (22:31→22:38)
--- OUTSIDE RECORDS SUMMARY | 2016-10-28 22:32 | XMS REPORT | Continuity of Care Document ---
:1960 Demographics Address [address] [place] [address] Mobile Phone [phone] Home Phone [phone] Email Address Preferred Language Unknown Marital Status Non- Voodoo Affiliation Roman Catholic Race White Ethnic Group Non- Author Organization [facility] ([facility]) Address [address] [place] [address] Phone [phone] Care Team Providers Name Role Phone Vibha Cavazos Primary Care Provider [phone] Source Comments This disclosure is being made pursuant to the Care Everywhere program, applicable federal and state laws, and may not contain all informaitonavailable regarding this patient.[facility] ([facility]) Active Allergies and Adverse Reactions No Known [...]
--- NOTE | 2016-10-28 22:35 | ERNOTE ---
Time Seen by Provider: 10/28/16 22:18 Stated Complaint: VOMITTING, COUGH Presenting Symptoms:: cough, fever Source: patient Exam Limitations: no limitations Immunizations: IMMUNIZATION HX Immunizations Up to Date Yes History of Influenza Vaccine Yes Hx Pneumococcal Vaccination No Allergies/Adverse Reactions: Allergies No Known Allergies Allergy (Verified 10/28/16 22:09) Home Medications: HOME MEDICATIONS Lisinopril 40 mg PO DAILY 08/10/13 [Last Taken 08/02/14] Omeprazole [Prilosec] 40 mg PO DAILY 12/26/13 [Last Taken 08/02/14] Sertraline HCl 50 mg PO DAILY 08/10/16 [Last Taken Unknown] Warfarin Sodium [Coumadin] 10 mg PO DAILY 08/10/16 [Last Taken Unknown] Gabapentin 400 mg PO TID 10/11/16 [Last Taken Unknown] Amox Tr/Potassium Clavulanate [Augmentin 875-125 Tablet] 875 mg PO Q12H #20 tab 10/28/16 [Last Taken Unknown] Fluticasone Propionate [Flonase] 2 spray NS BID #1 inhaler 10/28/16 [Last Taken Unknown] - History of Present Ilness Narrative: Pt states she has been coughing for 2 weeks. She was seen in this ED 10 days ago for the same complaint but has only gotten worse Timing: getting worse Severity: moderate - Patient's Past Medical History Patient History - Medical: Chronic Pain, Kidney stone, Migraines, Renal Disease Patient History - Cardiac/Respiratory: CVA/Stroke Patient History - Cancer: No Hx of Cancer Patient History - Surgical Procedures: Back Surgery, Hysterectomy, Other Patient History - Other: None - Family History Mother Family History - Cardiac/Respiratory: No pertinent hx dad Family History - Medical: Diabetes Type 2 Family History - Cardiac/Respiratory: No pertinent hx - Social History Living Situations: home Abuse History: No History of abuse Psych History: No pertinent hx Does anyone smoke in the home?: No Smoking Status: Never smoker Patient requests Smoking Cessation Consult: No Initiate information on Smoking Cessation: No Alcohol Use: rarely Drug Use: none - Immunizations Immunizations Up to Date: Yes Hx Pneumococcal Vaccination: No History of Influenza Vaccine: Yes Physical Exam - Physical Exam General Appearance: Present: wd/wn, alert, no apparent distress Ears, Nose, Throat: Present: nasal congestion - ,erythema with fresh bleeding and mucoid discharge Neck: Present: normal inspection, nontender Respiratory: Present: rhonchi, wheezing Cardiovascular/Chest: Present: regular rate, rhythm, no murmur Extremity Exam: Present: normal inspection, no edema Neurological Exam: Present: alert, oriented, normal mood/affect, no motor/ sensory deficits Skin Exam: Present: normal color, warm/dry ED Progress - Results and Orders Patient's Lab Results:: I have reviewed the patient's lab results. Results and Orders: Laboratory Tests 10/28/16 10/28/16 22:41 22:41 WBC 11.7 H Hgb 11.0 L Hct 35.6 L Plt Count 468 H Sodium 138 Potassium 3.1 L Chloride 99 Carbon Dioxide 23.9 L Anion Gap 18.2 H BUN 12 Creatinine 1.03 Est GFR (Non-Af Amer) 59 L Random Glucose 137 H Calcium 9.3 Total Bilirubin 0.4 AST 25 ALT 44 Alkaline Phosphatase 158 Total Protein 7.6 Albumin 3.8 - Vital Signs Patient's Vital Signs:: I have reviewed the patient's vital signs. Vital Signs: Vital Signs 10/28/16 22:06 Temperature 36.6 C Pulse Rate 99 Respiratory 20 Rate Blood Pressure 145/109 O2 Sat by Pulse 99 Oximetry - X-Ray X-Ray #1 X-Ray: chest Interpretation: Interp. by me X-ray Comments: no cardiopulmonary abnormality - Progress/Reassessment Chief Complaint: Upper Respiratory Symptoms Departure - Departure Clinical Impression: Sinusitis Qualifiers: Sinusitis location: maxillary Chronicity: acute Recurrence: non-recurrent Qualified Code(s): J01.00 - Acute maxillary sinusitis, unspecified Disposition: Home self-care Condition: Good Instructions: Sinusitis, Adult, [id number] Additional Instructions: Take mucinex-DM 600 mg twice a day. See your regular doctor next week Prescriptions: Amox Tr/Potassium Clavulanate [Augmentin 875-125 Tablet] 875 mg PO Q12H #20 tab Fluticasone Propionate [Flonase] 2 spray NS BID #1 inhaler
[2016-10-28 22:46] LABS: Hematocrit 35.6 % (37.0-47.0); Mean Cell Volume 82.8 fl (78-100); Mean Corpuscular Hemoglobin 25.6 pg (27-31); Mean Corpuscular Hgb Conc 30.9 g/dl (32-36); Mean Platelet Volume 9.4 fl (6.0-9.5); Neutrophil % 68.9 % (42-75.0); Platelet Count 468 K/mm3 (150-450); Red Cell Distribution Width 17.1 % (11.5-14.0); White Blood Count 11.7 K/mm3 (4.0-10.5)
[2016-10-28 23:00] LABS: Albumin * 3.8 gm/dl (3.4-5.0); Anion Gap 18.2 mmol/L (6.8-13.8); BUN/Creatinine Ratio 11.7 (9.0-21.6); Bilirubin, Total 0.4 mg/dL (0.0-1.1); Ca. Corrected For Albumin 9.1 mg/dL (8.4-10.2); Calcium * 9.3 mg/dL (7.9-10.9); Carbon Dioxide 23.9 mmol/L (24-32.6); Potassium 3.1 mmol/L (3.4-4.6); Total Protein 7.6 gm/dL (6.2-8.2)
[2016-10-28] MEDS ORDERED: CODEINE PHOSPHATE/GUAIFENESIN 5 ML UDC PO ONE (23:37)
[2016-10-28] MEDS ORDERED: CODEINE PHOSPHATE/GUAIFENESIN 5 ML UDC ONE (23:41)
[2016-10-28 23:48] VITALS: BP 138/78
== END 2016-10-28 23:47 | disposition home or self-care (01) ==
LOC: ER 22:01
DX: J01.00 Acute maxillary sinusitis, unspecified (principal); Z87.442 Personal history of urinary calculi

== ENCOUNTER 2016-11-29 15:13 | Emergency (ER) | payer MEDICARE, MEDICAID ==
[2016-11-29] MEDS ORDERED: ALBUTEROL SULFATE/IPRATROPIUM 3 ML NEBU IH ONE ×2 (15:35→16:09)
--- OUTSIDE RECORDS SUMMARY | 2016-11-29 15:42 | XMS REPORT | Continuity of Care Document ---
:1960 Demographics Address [address] [place] [address] Mobile Phone [phone] Home Phone [phone] Email Address Preferred Language Unknown Marital Status Non- Presybeterian Affiliation Orthodoxy Race White Ethnic Group Non- Author Organization [facility] ([facility]) Address [address] [place] [address] Phone [phone] Care Team Providers Name Role Phone Vibha Cavazos Primary Care Provider [phone] Source Comments This disclosure is being made pursuant to the Care Everywhere program, applicable federal and state laws, and may not contain all informaitonavailable regarding this patient.[facility] ([facility]) Active Allergies and Adverse Reactions No [...]
--- OUTSIDE RECORDS SUMMARY | 2016-11-29 15:42 | XMS REPORT | Summary of Care ---
:1960 Author Organization [facility] Address [address] [place] [address] Care Team Providers Name Role Phone BintaVibha guerrero Debbie Primary Care Physician Encounter Date(s): 10/03/16 - 10/03/16 [facility], [address] [place], [place] [address] Discharge Disposition: 01 Discharged to Home or Self Care Attending Physician: Penelope Gonzalez CNM Vital Signs No data available for this section Problem List Condition Effective Dates Status Health Status Informant Appendectomy(Confirmed) Active Ataxia(Confirmed) 07/13/14 Active Bladder spasm(Confirmed) 10/31/12 Active Cholecystectomy(Confirmed) Active Contact dermatitis(Confirmed) 02/28/13 Active Dentures(Confirmed) Active Anxiety(Confirmed) Active GERD - Gastro-esophageal reflux 09/17/12 Active disease(Confirmed) Hematuria(Confirmed) 04/02/12 Active HTN - Hypertension(Confirmed) Active patient Kidney stone(Confirmed) 09/17/12 Active Lumbar pain(Confirmed) 08/10/13 Active Muscle pain(Confirmed) 02/28/13 Active Neuropathic pain(Confirmed) 09/28/12 Active (Confirmed) 09/29/80 - 07/06/81 Resolved (Confirmed) 11/15/82 - 08/22/83 Resolved Sensory loss(Confirmed) 07/13/14 Active Stroke(Confirmed) Active AVRIL procedure(Confirmed) 07/17/14 Active Tonsillectomy(Confirmed) Active TPA - Tissue polypeptide 07/13/14 Active antigen(Confirmed) URI - Upper respiratory 07/13/14 Active infection(Confirmed) UTI - Urinary tract 10/31/12 Active infection(Confirmed) Allergies, Adverse Reactions, Alerts No Known Allergies Medications albuterol CFC free 90 mcg/inh inhalation aerosol 2 puff(s), Inhale, QID, PRN cough, # 1 EA, 0 Refill(s), Start Date: 07/26/14 9: 23:00 SANDBLAST OR [employer]OT[employer] E[employer]IPMENT [employer]ENDER Start Date: 07/26/14 Stop Date: 03/19/16 Status: Completedamitriptyline Oral, HS, 0 Refill(s), Start Date: 07/04/16 9:05:00 CDT Start Date: 07/04/16 Status: Orderedatorvastatin 40 mg oral tablet 2 tab(s), Oral, HS, # 60 tab(s), 0 Refill(s), Start Date: 07/26/14 9:22:00 SANDBLAST OR [employer] E[employer]IPMENT TENDER Start Date: 07/26/14 Stop Date: 06/28/16 Status: Completedatorvastatin 80 mg oral tablet 1 tab(s), Oral, Daily, # 30 tab(s), 0 Refill(s), Start Date: 07/21/14 13:48:00 SANDBLAST OR [employer] E[employer]MENT [employer] Start Date: 07/21/14 Stop Date: 07/26/14 Status: DiscontinuedBactrim DS 800 mg-160 mg oral tablet 1 tab(s), Oral, BID, X 10 days, # 20 tab(s), 0 Refill(s), Start Date: 11/20/15 19:42:00 CDT Start Date: 11/20/15 Stop Date: 11/30/15 Status: CompletedBactrim DS 800 mg-160 mg oral tablet 1 tab(s), Oral, BID, X 7 days, # 14 tab(s), 0 Refill(s), Start Date: 06/28/16 18 :47:00 CDT Start Date: 06/28/16 Stop Date: 07/01/16 Status: DiscontinuedBactrim DS 800 mg-160 mg oral tablet 1 tab(s), Oral, BID, X 7 days, # 14 tab(s), 0 Refill(s), Start Date: 03/21/16 19 :26:00 CDT Start Date: 03/21/16 Stop Date: 03/28/16 Status: CompletedCepacol Sore Throat 15 mg-3.6 mg mucous membrane lozenge 1 lozenge(s), Oral, q2hr, PRN sore throat, X 7 days, # 84 lozenge(s), 0 Refill(s ), Start Date: 05/30/15 13:12:00 CDT Start Date: 05/30/15 Stop Date: 06/06/15 Status: Completedcephalexin 500 mg oral capsule 1 cap(s), Oral, QID, # 20 cap(s), 0 Refill(s) Start Date: 05/04/14 Stop Date: 07/21/14 Status: CompletedCipro 250 mg oral tablet 1 tab(s), Oral, q12hr, # 20 tab(s), 0 Refill(s), Start Date: 04/02/16 11:06:00 CDT Start Date: 04/02/16 Stop Date: 05/02/16 Status: CompletedcloNIDine 0.1 mg oral tablet 1 tab(s), Oral, TID, 0 Refill(s), Start Date: 07/21/14 13:48:00 S[employer] OR [employer] E[employer]IPMENT TENDER Start Date: 07/21/14 Stop Date: 07/26/14 Status: Discontinuedenoxaparin 80 mg/0.8 mL injectable solution 80 mg, Subcutaneous, q12hr interval, 0 Refill(s), Start Date: 07/21/14 13:48:00 SANDBLAST OR [employer] E[employer]IPMENT TENDER Start Date: 07/21/14 Stop Date: 07/26/14 Status: DiscontinuedEstring 2 mg vaginal ring 1 EA, Vaginal, [id number], # 1 EA, 1 Refill(s), Start Date: 07/04/16 11:05:00 CDT , Pharmacy: [place], [place] Start Date: 07/04/16 Status: OrderedFlonase 50 mcg/inh nasal spray 2 spray(s), Nasal, Daily, 0 Refill(s), Start Date: 07/26/14 9:23:00 SANDB[employer] OR [employer] E[employer]MENT T[employer]ER Start Date: 07/26/14 Stop Date: 05/28/15 Status: Discontinuedgabapentin 300 mg oral capsule 3 cap(s), Oral, TID, 0 Refill(s), Start Date: 07/26/14 9:22:00 SANDBLAST OR [employer] E[employer]MENT T[employer]ER Start Date: 07/26/14 Stop Date: 05/28/15 Status: Discontinuedgabapentin 300 mg oral capsule 2 cap(s), Oral, TID, 0 Refill(s), Start Date: 07/21/14 13:48:00 SANDBLAST OR [employer] E[employer]IPMENT T[employer]ER Start Date: 07/21/14 Stop Date: 07/26/14 Status: Discontinuedgabapentin 400 mg oral capsule 1 cap(s), Oral, TID, 0 Refill(s), Start Date: 05/28/15 17:26:00 CDT Start Date: 05/28/15 Stop Date: 05/02/16 Status: CompletedguaiFENesin 100 mg/5 mL oral liquid 5 mL, Oral, q4hr, PRN cough, # 420 mL, 0 Refill(s), Start Date: 05/30/15 13:15: 00 CDT Start Date: 05/30/15 Stop Date: 03/19/16 Status: CompletedHYDROcodone-acetaminophen 5 mg-325 mg oral tablet 1 tab(s), Oral, q4hr, # 12 tab(s), 0 Refill(s), Start Date: 05/02/16 16:32:00 CDT Start Date: 05/02/16 Stop Date: 05/04/16 Status: CompletedHYDROcodone-acetaminophen 5 mg-325 mg oral tablet 2 tab(s), Oral, q4hr, X 1 days, # 12 tab(s), 0 Refill(s), Start Date: 03/17/16 9 :16:00 CDT Start Date: 03/17/16 Stop Date: 03/18/16 Status: CompletedHYDROcodone-acetaminophen 5mg-325mg oral tablet 2 tab(s), Oral, q6hr, X 3 days, # 15 tab(s), 0 Refill(s), Start Date: 06/28/16 18:46:00 CDT Start Date: 06/28/16 Stop Date: 07/01/16 Status: CompletedLevaquin 500 mg oral tablet 1 tab(s), Oral, Daily, # 7 tab(s), 0 Refill(s), Start Date: 05/02/16 16:31:00 CDT Start Date: 05/02/16 Stop Date: 05/28/16 Status: Completedlisinopril 20, Oral, Daily, 0 Refill(s) Start Date: 05/04/14 Stop Date: 07/21/14 Status: Completedlisinopril 20 mg oral tablet 2 tab(s), Oral, Daily, 0 Refill(s), Start Date: 07/26/14 9:22:00 SANDB[employer] OR [employer] E[employer] T[employer]ER Start Date: 07/26/14 Status: Orderedlisinopril 40 mg oral tablet 1 tab(s), Oral, Daily, # 30 tab(s), 0 Refill(s), Start Date: 07/21/14 13:48:00 SANDBLAST OR [employer] E[employer]IPMENT TENDER Start Date: 07/21/14 Stop Date: 07/26/14 Status: DiscontinuedMedrol Dosepak 4 mg oral tablet 1 packet(s), Oral, Per Package Label, as directed on package labeling, # 21 tab( s), 0 Refill(s), Start Date: 07/16/16 21:37:00 S[employer] OR [employer] E[employer] T[employer]ER Special Instructions: as directed on package labeling Start Date: 07/16/16 Stop Date: 07/22/16 Status: OrderedmetroNIDAZOLE 500 mg oral tablet 1 tab(s), Oral, BID, # 12 tab(s), 0 Refill(s), Start Date: 04/02/16 11:05:00 CDT Start Date: 04/02/16 Stop Date: 05/02/16 Status: Completedmultivitamin 1 tab(s), Oral, Daily, Start Date: 03/21/16 18:37:00 CDT Start Date: 03/21/16 Stop Date: 06/28/16 Status: Completedmultivitamin 1 tab(s), Oral, Daily, 0 Refill(s), Start Date: 07/04/16 9:05:00 CDT Start Date: 07/04/16 Status: Orderednabumetone 750 mg oral tablet 1 tab(s), Oral, BID, 0 Refill(s), Start Date: 07/21/14 13:48:00 SANDB[employer] OR [employer] E[employer]IPMENT TENDER Start Date: 07/21/14 Stop Date: 07/26/14 Status: DiscontinuedNorco 5 mg-325 mg oral tablet 1 tab(s), Oral, q6hr, PRN for pain, X 5 days, # 20 tab(s), 0 Refill(s), Start Date: 07/16/16 21:37:00 SANDBLAST OR SH[employer] E[employer]IPMENT TENDER Start Date: 07/16/16 Stop Date: 07/21/16 Status: Completedomeprazole 20 mg, Oral, Daily, 0 Refill(s), Start Date: 05/28/15 17:26:00 CDT Start Date: 05/28/15 Stop Date: 05/30/15 Status: Discontinuedomeprazole 20 mg oral delayed release capsule 2 cap(s), Oral, BID, 0 Refill(s), Start Date: 07/26/14 9:22:00 SANDBLAST OR SH[employer] E[employer]IPMENT TENDER Start Date: 07/26/14 Stop Date: 05/28/15 Status: Discontinuedomeprazole 40 mg oral delayed release capsule 1 cap(s), Oral, Daily, Start Date: 05/02/16 13:37:00 CDT Start Date: 05/02/16 Status: Orderedomeprazole 40 mg oral delayed release capsule 1 cap(s), Oral, Daily, # 30 cap(s), 0 Refill(s), Start Date: 07/21/14 13:48:00 SANDBLAST OR SHOTBLAST E[employer]IPMENT TENDER Start Date: 07/21/14 Stop Date: 07/26/14 Status: DiscontinuedOmnicef 300 mg oral capsule 1 cap(s), Oral, q12hr, # 14 cap(s), 0 Refill(s), Start Date: 05/30/15 13:18:00 CDT Start Date: 05/30/15 Stop Date: 03/19/16 Status: Completedorphenadrine 100 mg oral tablet, extended release 1 tab(s), Oral, BID, # 10 tab(s), 0 Refill(s), Start Date: 01/25/16 20:46:00 CDT Start Date: 01/25/16 Stop Date: 03/19/16 Status: CompletedPercocet 5/325 2 tab(s), Oral, q6hr interval, PRN pain severe 8-10, 0 Refill(s), Start Date: 13:48:00 SANDBLAST OR SH[employer] E[employer]IPMENT TENDER Start Date: 07/21/14 Stop Date: 07/26/14 Status: DiscontinuedPercocet 5/325 1 tab(s), Oral, q6hr interval, PRN pain moderate 4-7, 0 Refill(s), Start Date: 07/21/14 13:48:00 SANDBLAST OR SHOTBLAST EQUIPMENT TENDER Start Date: 07/21/14 Stop Date: 05/28/15 Status: DiscontinuedPercocet 5/325 oral tablet 1 tab(s), Oral, q6hr, PRN for pain, # 10 tab(s), 0 Refill(s), Start Date: 11:06:00 CDT Start Date: 04/02/16 Stop Date: 04/09/16 Status: CompletedPharmacy to Dose Warfarin, N/A, Daily, 0 Refill(s) Start Date: 07/26/14 Stop Date: 03/19/16 Status: Completedpromethazine 25 mg oral tablet 1 tab(s), Oral, QID, PRN for nausea/vomiting, # 12 tab(s), 0 Refill(s), Start Date: 03/17/16 9:16:00 CDT Start Date: 03/17/16 Stop Date: 04/02/16 Status: DiscontinuedProtonix 40 mg oral granule, enteric coated 1 EA, Oral, Daily, # 30 tab(s), 0 Refill(s), Start Date: 05/30/15 13:16:00 CDT Start Date: 05/30/15 Stop Date: 05/02/16 Status: CompletedPyridium 100 mg oral tablet 1 tab(s), Oral, BID, PRN urinary discomfort, # 14 tab(s), 0 Refill(s), Start Date: 05/30/15 13:15:00 CDT Start Date: 05/30/15 Stop Date: 03/19/16 Status: CompletedReadi-Cat 2 oral suspension See Instructions, Oral ONETIME, # 2 bottles, 0 Refill(s), Start Date: 07/04/16 15:49:00 CDT, Pharmacy: [facility] Special Instructions: Oral ONETIME Start Date: 07/04/16 Status: Orderedsertraline 100 mg oral tablet 1 tab(s), Oral, Daily, # 30 tab(s), 0 Refill(s), Start Date: 07/21/14 13:48:00 SANDBLAST OR SHOTBLAST E[employer]IPMENT TENDER Start Date: 07/21/14 Stop Date: 07/26/14 Status: Discontinuedsertraline 100 mg oral tablet 1 tab(s), Oral, Daily, 0 Refill(s), Start Date: 07/26/14 9:22:00 SANDBLAST OR SHOTBLAST EQUIPMENT TENDER Start Date: 07/26/14 Stop Date: 03/19/16 Status: Completedsertraline 100 mg oral tablet 1 tab(s), Oral, Daily, # 30 tab(s), 0 Refill(s), Start Date: 06/28/16 17:04:00 CDT Start Date: 06/28/16 Status: Orderedsertraline 50 mg oral tablet 1.5 tab(s), Oral, Daily, Start Date: 05/02/16 13:37:00 CDT Start Date: 05/02/16 Stop Date: 06/28/16 Status: Completedsulfamethoxazole-trimethoprim 800 mg-160 mg oral tablet 1 tab(s), Oral, BID, X 7 days, # 14 tab(s), 0 Refill(s), Start Date: 06/11/15 19 :29:00 CDT Start Date: 06/11/15 Stop Date: 06/18/15 Status: CompletedtraMADol 50 mg oral tablet 1 tab(s), Oral, q6hr interval, PRN as needed for pain, # 12 tab(s), 0 Refill(s) , Start Date: 11/08/15 6:19:00 SANDBLAST OR SHOTBLAST EQUIPMENT TENDER Start Date: 11/08/15 Stop Date: 03/19/16 Status: CompletedtraMADol 50 mg oral tablet 1 tab(s), Oral, q6hr interval, PRN pain mild 1-3, 0 Refill(s), Start Date: 07/26 9:23:00 SANDBLAST OR SHOTBLAST EQUIPMENT TENDER Start Date: 07/26/14 Stop Date: 05/28/15 Status: DiscontinuedtraMADol 50 mg oral tablet 1 tab(s), Oral, q6hr interval, PRN pain mild 1-3, 0 Refill(s), Start Date: 07/21 13:48:00 SANDBLAST OR SHOTBLAST EQUIPMENT TENDER Start Date: 07/21/14 Stop Date: 07/26/14 Status: Discontinuedwarfarin 2 mg oral tablet 4.5 tab(s), Oral, Every other day, # 30 tab(s), 0 Refill(s), Start Date: 17:06:00 CDT Start Date: 06/28/16 Status: Orderedwarfarin 2 mg oral tablet 4 tab(s), Oral, Every other day, # 30 tab(s), 0 Refill(s), Start Date: 06/28/16 17:05:00 CDT Start Date: 06/28/16 Status: Orderedwarfarin 4 mg oral tablet 2 tab(s), Oral, Daily, # 30 tab(s), 0 Refill(s), Start Date: 05/28/16 16:26:00 CDT Start Date: 05/28/16 Stop Date: 06/28/16 Status: Completedwarfarin 5 mg oral tablet 1 tab(s), Oral, Daily, # 30 tab(s), 0 Refill(s), Start Date: 07/21/14 13:48:00 SANDBLAST OR SHOTBLAST EQUIPMENT TENDER Start Date: 07/21/14 Stop Date: 07/26/14 Status: Discontinuedwarfarin 5 mg oral tablet 1 tab(s), Oral, ONETIME, 0 Refill(s), Start Date: 07/01/16 13:15:00 CDT Start Date: 07/01/16 Status: Orderedwarfarin 5 mg oral tablet 1 tab(s), Oral, Daily, take 5 mg daily until INR on 04/04/16 further dosing per INR, # 30 tab(s), 0 Refill(s), Start Date: 04/02/16 11:59:00 CDT, other reason ( Rx) Special Instructions: take 5 mg daily until INR on 04/04/16 further dosing per INR Start Date: 04/02/16 Stop Date: 05/28/16 Status: Completedwarfarin 6 mg oral tablet 2 tab(s), Oral, Daily, 0 Refill(s), Start Date: 07/26/14 9:23:00 SANDBLAST OR SHOTBLAST EQUIPMENT TENDER Start Date: 07/26/14 Stop Date: 03/29/16 Status: Completedwarfarin 7.5 mg oral tablet 1 tab(s), Oral, Daily, # 30 tab(s), 0 Refill(s), Start Date: 03/29/16 15:58:00 CDT Start Date: 03/29/16 Stop Date: 04/02/16 Status: DiscontinuedZofran ODT 4 mg oral tablet, disintegrating 1 tab(s), Oral, TID, PRN nausea/vomiting, # 10 tab(s), 0 Refill(s), Start Date: 05/02/16 16:33:00 CDT Start Date: 05/02/16 Stop Date: 05/28/16 Status: CompletedZofran ODT 4 mg oral tablet, disintegrating 1 tab(s), Oral, q6hr, PRN nausea, X 3 days, # 10 tab(s), 0 Refill(s), Start Date : 06/28/16 18:47:00 CDT Start Date: 06/28/16 Stop Date: 07/01/16 Status: Completed Results No data available for this section Immunizations Vaccine Date Refusal Reason influenza virus vaccine, inactivated 05/01/16 Procedures Procedure Date Related Diagnosis Body Site Cystoscopy - SN1 04/01/16 Colonoscopy2 05/30/15 Esophagogastroduodenoscopy3 05/29/15 Tonsillectomy 1969 Appendectomy Back4 Cholecystectomy Hysterectomy Septum of nose5 1auto-populated from documented surgical [id number] from documented surgical [id number] from documented surgical [id number] septum repair Social History No data available for this section Assessment and Plan No data available for this section
--- OUTSIDE RECORDS SUMMARY | 2016-11-29 15:43 | XMS REPORT | Summary of Care ---
:1960 Demographics Address [address] [place] [id number]- Preferred Language Danish Marital Status Not or Caodaism Affiliation Nondenominational Race Ethnic Group Not or Author Organization [facility] Address [address] [place] [address]- Care Team Providers Name Role Phone Physician, Primary Care Primary Care Physician Unavailable Encounter Date(s): 01/25/16 - 01/25/[address] [address]- [facility] Discharge Diagnosis: Right-sided chest wall pain Final: Other chest pain Discharge Disposition: Discharged to Home or Self Care Attending Physician: Azael Olea DO Admitting Physician: Azael Olea DO Vital Signs Most recent to oldest [Reference Range]: 1 2 Temperature Temporal Artery [36.0-38.0 DegC] 36.9 DegC 36.6 DegC (01/25/16 9:03 PM) (01/25/16 7:59 PM) Heart Rate Monitored [60-100 bpm] 81 bpm 85 bpm (01/25/16 9:03 PM) (01/25/16 7:59 PM) Respiratory Rate [12-20 br/min] 18 br/min 16 br/min (01/25/16 9:03 PM) (01/25/16 7:59 PM) SpO2 97 % 97 % (01/25/16 9:03 PM) (01/25/16 7:59 PM) Blood Pressure [90-130/60-90 mmHg] 151/82mmHg 157/99mmHg *HI* *HI* (01/25/16 9:03 PM) (01/25/16 7:59 PM) Most recent to oldest [Reference Range]: 1 2 Weight Estimated 62.2 kg (01/25/16 7:59 PM) Weight Dosing 62.20 kg1 (01/25/16 8:02 PM) 1Result Comment: This result was because the dosing weight was either not entered or it is>30 days old. This result is based off: Weight Estimated January 25, 2016 19:59:00 CDT by Marycarmen Marina Problem List Condition Effective Dates Status Health Status Informant Anxiety(Confirmed) Active Appendectomy(Confirmed) Active Ataxia(Confirmed) 07/13/14 Active Bladder spasm(Confirmed) 10/31/12 Active Cholecystectomy(Confirmed) Active Contact dermatitis(Confirmed) 02/28/13 Active Dentures(Confirmed) Active GERD - Gastro-esophageal reflux 09/17/12 Active disease(Confirmed) Hematuria(Confirmed) 04/02/12 Active HTN - Hypertension(Confirmed) Active patient Kidney stone(Confirmed) 09/17/12 Active Lumbar pain(Confirmed) 08/10/13 Active Muscle pain(Confirmed) 02/28/13 Active Neuropathic pain(Confirmed) 09/28/12 Active Sensory loss(Confirmed) 07/13/14 Active Stroke(Confirmed) Active AVRIL [...] 0 Refill(s), Start Date: 07/26/14 9: 23:00 MOTOR POWER [employer] Start Date: 07/26/14 Status: Orderedatorvastatin 40 mg oral tablet 2 tab(s), Oral, HS, # 60 tab(s), 0 Refill(s), Start Date: 07/26/14 9:22:00 MOTOR P[employer] Start Date: 07/26/14 Status: Orderedatorvastatin 80 mg oral tablet 1 tab(s), Oral, Daily, # 30 tab(s), 0 Refill(s), Start Date: 07/21/14 13:48:00 [employer]OR [employer] Start Date: 07/21/14 Stop Date: 07/26/14 Status: DiscontinuedBactrim DS 800 mg-160 mg oral tablet 1 tab(s), Oral, BID, X 10 days, # 20 tab(s), 0 Refill(s), Start Date: 11/20/15 19:42:00 CDT Start Date: 11/20/15 Stop Date: 11/30/15 Status: CompletedCepacol Sore Throat 15 mg-3.6 mg mucous membrane lozenge 1 lozenge(s), Oral, q2hr, PRN sore throat, X 7 days, # 84 lozenge(s), 0 Refill(s ), Start Date: 05/30/15 13:12:00 CDT Start Date: 05/30/15 Stop Date: 06/06/15 Status: Completedcephalexin 500 mg oral capsule 1 cap(s), Oral, QID, # 20 cap(s), 0 Refill(s) Start Date: 05/04/14 Stop Date: 07/21/14 Status: CompletedcloNIDine 0.1 mg oral tablet 1 tab(s), Oral, TID, 0 Refill(s), Start Date: 07/21/14 13:48:00 [employer] Start Date: 07/21/14 Stop Date: 07/26/14 Status: Discontinuedenoxaparin 80 mg/0.8 mL injectable solution 80 mg, Subcutaneous, q12hr interval, 0 Refill(s), Start Date: 07/21/14 13:48:00 [employer]OR [employer] Start Date: 07/21/14 Stop Date: 07/26/14 Status: DiscontinuedFlonase 50 mcg/inh nasal spray 2 spray(s), Nasal, Daily, 0 Refill(s), Start Date: 07/26/14 9:23:00 [employer] Start Date: 07/26/14 Stop Date: 05/28/15 Status: Discontinuedgabapentin 300 mg oral capsule 3 cap(s), Oral, TID, 0 Refill(s), Start Date: 07/26/14 9:22:00 MOTOR P[employer]CTOR Start Date: 07/26/14 Stop Date: 05/28/15 Status: Discontinuedgabapentin 300 mg oral capsule 2 cap(s), Oral, TID, 0 Refill(s), Start Date: 07/21/14 13:48:00 MOTOR P[employer]CTOR Start Date: 07/21/14 Stop Date: 07/26/14 Status: Discontinuedgabapentin 400 mg oral capsule 1 cap(s), Oral, TID, 0 Refill(s), Start Date: 05/28/15 17:26:00 CDT Start Date: 05/28/15 Status: OrderedguaiFENesin 100 mg/5 mL oral liquid 5 mL, Oral, q4hr, PRN cough, # 420 mL, 0 Refill(s), Start Date: 05/30/15 13:15: 00 CDT Start Date: 05/30/15 Stop Date: 06/13/15 Status: Orderedlisinopril 20, Oral, Daily, 0 Refill(s) Start Date: 05/04/14 Stop Date: 07/21/14 Status: Completedlisinopril 20 mg oral tablet 1 tab(s), Oral, Daily, 0 Refill(s), Start Date: 07/26/14 9:22:00 [employer] Start Date: 07/26/14 Status: Orderedlisinopril 40 mg oral tablet 1 tab(s), Oral, Daily, # 30 tab(s), 0 Refill(s), Start Date: 07/21/14 13:48:00 MOTOR P[employer] Start Date: 07/21/14 Stop Date: 07/26/14 Status: Discontinuednabumetone 750 mg oral tablet 1 tab(s), Oral, BID, 0 Refill(s), Start Date: 07/21/14 13:48:00 [employer] Start Date: 07/21/14 Stop Date: 07/26/14 Status: Discontinuedomeprazole 20 mg, Oral, Daily, 0 Refill(s), Start Date: 05/28/15 17:26:00 CDT Start Date: 05/28/15 Stop Date: 05/30/15 Status: Discontinuedomeprazole 20 mg oral delayed release capsule 2 cap(s), Oral, BID, 0 Refill(s), Start Date: 07/26/14 9:22:00 [employer]OR P[employer] Start Date: 07/26/14 Stop Date: 05/28/15 Status: Discontinuedomeprazole 40 mg oral delayed release capsule 1 cap(s), Oral, Daily, # 30 cap(s), 0 Refill(s), Start Date: 07/21/14 13:48:00 MOT[employer] Start Date: 07/21/14 Stop Date: 07/26/14 Status: DiscontinuedOmnicef 300 mg oral capsule 1 cap(s), Oral, q12hr, # 14 cap(s), 0 Refill(s), Start Date: 05/30/15 13:18:00 CDT Start Date: 05/30/15 Stop Date: 06/06/15 Status: Orderedorphenadrine 100 mg oral tablet, extended release 1 tab(s), Oral, BID, # 10 tab(s), 0 Refill(s), Start Date: 01/25/16 20:46:00 CDT Start Date: 01/25/16 Stop Date: 01/30/16 Status: OrderedPercocet 5/325 2 tab(s), Oral, q6hr interval, PRN pain severe 8-10, 0 Refill(s), Start Date: 13:48:00 [employer] Start Date: 07/21/14 Stop Date: 07/26/14 Status: DiscontinuedPercocet 5/325 1 tab(s), Oral, q6hr interval, PRN pain moderate 4-7, 0 Refill(s), Start Date: 07/21/14 13:48:00 [employer] Start Date: 07/21/14 Stop Date: 05/28/15 Status: DiscontinuedPharmacy to Dose Warfarin, N/A, Daily, 0 Refill(s) Start Date: 07/26/14 Status: OrderedProtonix 40 mg oral granule, enteric coated 1 EA, Oral, Daily, # 30 tab(s), 0 Refill(s), Start Date: 05/30/15 13:16:00 CDT Start Date: 05/30/15 Stop Date: 06/29/15 Status: OrderedPyridium 100 mg oral tablet 1 tab(s), Oral, BID, PRN urinary discomfort, # 14 tab(s), 0 Refill(s), Start Date: 05/30/15 13:15:00 CDT Start Date: 05/30/15 Stop Date: 06/06/15 Status: Orderedsertraline 100 mg oral tablet 1 tab(s), Oral, Daily, # 30 tab(s), 0 Refill(s), Start Date: 07/21/14 13:48:00 [employer] Start Date: 07/21/14 Stop Date: 07/26/14 Status: Discontinuedsertraline 100 mg oral tablet 1 tab(s), Oral, Daily, 0 Refill(s), Start Date: 07/26/14 9:22:00 [employer] Start Date: 07/26/14 Status: Orderedsulfamethoxazole-trimethoprim 800 mg-160 mg oral tablet 1 tab(s), Oral, BID, X 7 days, # 14 tab(s), 0 Refill(s), Start Date: 06/11/15 19 :29:00 CDT Start Date: 06/11/15 Stop Date: 06/18/15 Status: CompletedtraMADol 50 mg oral tablet 1 tab(s), Oral, q6hr interval, PRN as needed for pain, # 12 tab(s), 0 Refill(s) , Start Date: 11/08/15 6:19:00 [employer] Start Date: 11/08/15 Stop Date: 11/12/15 Status: OrderedtraMADol 50 mg oral tablet 1 tab(s), Oral, q6hr interval, PRN pain mild 1-3, 0 Refill(s), Start Date: 07/26 9:23:00 [employer] Start Date: 07/26/14 Stop Date: 05/28/15 Status: DiscontinuedtraMADol 50 mg oral tablet 1 tab(s), Oral, q6hr interval, PRN pain mild 1-3, 0 Refill(s), Start Date: 07/21 13:48:00 [employer] Start Date: 07/21/14 Stop Date: 07/26/14 Status: Discontinuedwarfarin 5 mg oral tablet 1 tab(s), Oral, Daily, # 30 tab(s), 0 Refill(s), Start Date: 07/21/14 13:48:00 [employer] Start Date: 07/21/14 Stop Date: 07/26/14 Status: Discontinuedwarfarin 6 mg oral tablet 2 tab(s), Oral, Daily, 0 Refill(s), Start Date: 07/26/14 9:23:00 [employer] Start Date: 07/26/14 Status: Ordered Results No data available for this section Immunizations No data available for this section Procedures Procedure Date Related Diagnosis Body Site Colonoscopy1 05/30/15 Esophagogastroduodenoscopy2 05/29/15 Tonsillectomy 1969 Appendectomy Back3 Cholecystectomy Hysterectomy Septum of nose4 1auto-populated from documented surgical [id number] from documented surgical [id number] septum repair Social History No data available for this section Assessment and Plan No data available for this section
--- OUTSIDE RECORDS SUMMARY | 2016-11-29 15:43 | XMS REPORT | Summary of Care ---
:1960 Demographics Address [address] [place] [phone] Preferred Language Faroese Marital Status Not or Rastafari Affiliation Baptism Race Ethnic Group Not or Author Organization [facility] Address [address] [place] [address]- Care Team Providers Name Role Phone Physician, Primary Care Primary Care Physician Unavailable Encounter Date(s): 01/25/16 - 01/25/[address] [address]- [facility] Discharge Diagnosis: Right-sided chest wall pain Final: [...] 0 Refill(s), Start Date: 07/26/14 9: 23: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 Start Date: 07/26/14 Status: Orderedatorvastatin 40 mg oral tablet 2 tab(s), Oral, HS, # 60 tab(s), 0 Refill(s), Start Date: 07/26/14 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 Start Date: 07/26/14 Status: Orderedatorvastatin 80 mg oral tablet 1 tab(s), Oral, Daily, # 30 tab(s), 0 Refill(s), Start Date: 07/21/14 13:48: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 Start Date: 07/21/14 Stop Date: 07/26/14 Status: [...] TID, 0 Refill(s), Start Date: 07/21/14 13:48: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 Start Date: 07/21/14 Stop Date: 07/26/14 Status: Discontinuedenoxaparin 80 mg/0.8 mL injectable solution 80 mg, Subcutaneous, q12hr interval, 0 Refill(s), Start Date: 07/21/14 13:48: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 Start Date: 07/21/14 Stop Date: 07/26/14 Status: DiscontinuedFlonase 50 mcg/inh nasal spray 2 spray(s), Nasal, Daily, 0 Refill(s), Start Date: 07/26/14 9:23: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 Start Date: 07/26/14 Stop Date: 05/28/15 Status: Discontinuedgabapentin 300 mg oral capsule 3 cap(s), Oral, TID, 0 Refill(s), Start Date: 07/26/14 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 Start Date: 07/26/14 Stop Date: 05/28/15 Status: Discontinuedgabapentin 300 mg oral capsule 2 cap(s), Oral, TID, 0 Refill(s), Start Date: 07/21/14 13:48: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 Start Date: 07/21/14 Stop Date: 07/26/14 Status: [...] Daily, 0 Refill(s), Start Date: 07/26/14 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 Start Date: 07/26/14 Status: Orderedlisinopril 40 mg oral tablet 1 tab(s), Oral, Daily, # 30 tab(s), 0 Refill(s), Start Date: 07/21/14 13:48: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 Start Date: 07/21/14 Stop Date: 07/26/14 Status: Discontinuednabumetone 750 mg oral tablet 1 tab(s), Oral, BID, 0 Refill(s), Start Date: 07/21/14 13:48: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 Start Date: 07/21/14 Stop Date: 07/26/14 Status: Discontinuedomeprazole 20 mg, Oral, Daily, 0 Refill(s), Start Date: 05/28/15 17:26:00 CDT Start Date: 05/28/15 Stop Date: 05/30/15 Status: Discontinuedomeprazole 20 mg oral delayed release capsule 2 cap(s), Oral, BID, 0 Refill(s), Start Date: 07/26/14 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 Start Date: 07/26/14 Stop Date: 05/28/15 Status: Discontinuedomeprazole 40 mg oral delayed release capsule 1 cap(s), Oral, Daily, # 30 cap(s), 0 Refill(s), Start Date: 07/21/14 13:48: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 Start Date: 07/21/14 Stop Date: 07/26/14 Status: [...] severe 8-10, 0 Refill(s), Start Date: 13:48: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 Start Date: 07/21/14 Stop Date: 07/26/14 Status: DiscontinuedPercocet 5/325 1 tab(s), Oral, q6hr interval, PRN pain moderate 4-7, 0 Refill(s), Start Date: 07/21/14 13:48: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 Start Date: 07/21/14 Stop Date: 05/28/15 Status: [...] tab(s), 0 Refill(s), Start Date: 07/21/14 13:48: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 Start Date: 07/21/14 Stop Date: 07/26/14 Status: Discontinuedsertraline 100 mg oral tablet 1 tab(s), Oral, Daily, 0 Refill(s), Start Date: 07/26/14 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 Start Date: 07/26/14 Status: Orderedsulfamethoxazole-trimethoprim 800 mg-160 mg oral tablet 1 tab(s), Oral, BID, X 7 days, # 14 tab(s), 0 Refill(s), Start Date: 06/11/15 19 :29:00 CDT Start Date: 06/11/15 Stop Date: 06/18/15 Status: CompletedtraMADol 50 mg oral tablet 1 tab(s), Oral, q6hr interval, PRN as needed for pain, # 12 tab(s), 0 Refill(s) , Start Date: 11/08/15 6:19: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 Start Date: 11/08/15 Stop Date: 11/12/15 Status: OrderedtraMADol 50 mg oral tablet 1 tab(s), Oral, q6hr interval, PRN pain mild 1-3, 0 Refill(s), Start Date: 07/26 9:23: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 Start Date: 07/26/14 Stop Date: 05/28/15 Status: DiscontinuedtraMADol 50 mg oral tablet 1 tab(s), Oral, q6hr interval, PRN pain mild 1-3, 0 Refill(s), Start Date: 07/21 13:48: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 Start Date: 07/21/14 Stop Date: 07/26/14 Status: Discontinuedwarfarin 5 mg oral tablet 1 tab(s), Oral, Daily, # 30 tab(s), 0 Refill(s), Start Date: 07/21/14 13:48: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 Start Date: 07/21/14 Stop Date: 07/26/14 Status: Discontinuedwarfarin 6 mg oral tablet 2 tab(s), Oral, Daily, 0 Refill(s), Start Date: 07/26/14 9:23: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
[2016-11-29] MEDS ORDERED: LORazepam 1 MG TABLET PO ONE (15:46)
--- NOTE | 2016-11-29 16:00 | ERNOTE ---
Date of Service: 11/29/16 Time Seen by Provider: 11/29/16 15:34 Stated Complaint: PLEURAL PAIN Source: patient Exam Limitations: no limitations Immunizations: IMMUNIZATION HX Immunizations Up to Date Yes History of Influenza Vaccine Yes Hx Pneumococcal Vaccination No Allergies/Adverse Reactions: Allergies No Known Allergies Allergy (Verified 10/28/16 22:09) Home Medications: HOME MEDICATIONS Gabapentin 400 mg PO TID 10/11/16 [Last Taken Unknown] Albuterol Sulfate [Proair Hfa] 1 - 2 puff IH Q4H PRN 11/29/16 [Last Taken Unknown] Albuterol Sulfate [Ventolin Hfa] 2 puff IH Q4H PRN #1 inhaler 11/29/16 [Last Taken Unknown] Doxycycline Monohydrate 100 mg PO BID #20 tablet 11/29/16 [Last Taken Unknown] Fluticasone Propionate [Flonase] 2 spray NS BID PRN 11/29/16 [Last Taken Unknown ] Indomethacin 50 mg PO BID 11/29/16 [Last Taken Unknown] Lisinopril [Zestril] 40 mg PO DAILY 11/29/16 [Last Taken Unknown] Omeprazole 40 mg PO DAILY 11/29/16 [Last Taken Unknown] Sertraline HCl [Zoloft] 50 mg PO DAILY 11/29/16 [Last Taken Unknown] Warfarin Sodium [Coumadin] 10 mg PO DAILY 11/29/16 [Last Taken Unknown] predniSONE [Prednisone] 20 mg PO DAILY 11/29/16 [Last Taken Unknown] - History of Present Ilness Narrative: Pt. comes in with c/o SOB and L sided chest pain that pt. states she has had for about four months. Pt. states that she has been seen for this previously and is on prednisone and indomethacin but the symptoms returned this morning worse than they have ever been and she is unable to control it. Pt. states that it is making her scared because she feels that she can only get short quick breaths in and the pain is sharper than it used to be. Pt. denies any alleviating factors. Review of Systems - Review of Systems Constitutional: Present: no symptoms reported. Absent: fever, chills, weakness , fatigue, malaise EYE: Present: no symptoms reported ENT: Present: no symptoms reported Respiratory: Present: shortness of breath, cough. Absent: wheezing Cardiology: Present: chest pain. Absent: palpitations, edema Gastrointestinal/Abdominal: Present: no symptoms reported. Absent: nausea, vomiting, diarrhea Genitourinary: Present: no symptoms reported Musculoskeletal: Present: no symptoms reported. Absent: back pain, joint pain Skin: Present: no symptoms reported Neurological: Present: no symptoms reported. Absent: headache, dizziness/light- headedness, numbness, tingling All Other Systems: All systems neg except as marked - Patient's Past Medical History Patient History - Medical: Chronic Pain, Kidney stone, Migraines, Renal Disease Patient History - Cardiac/Respiratory: CVA/Stroke Patient History - Cancer: No Hx of Cancer Patient History - Surgical Procedures: Back Surgery, Hysterectomy, Other Patient History - Other: None - Family History Mother Family History - Cardiac/Respiratory: No pertinent hx dad Family History - Medical: Diabetes Type 2 Family History - Cardiac/Respiratory: No pertinent hx - Social History Living Situations: home Abuse History: No History of abuse Psych History: No pertinent hx Does anyone smoke in the home?: No Smoking Status: Former smoker Have you smoked in the past 12 months: Yes Do you dip or chew tobacco: No Alcohol Use: rarely Drug Use: none - Immunizations Immunizations Up to Date: Yes Hx Pneumococcal Vaccination: No History of Influenza Vaccine: Yes Physical Exam - Physical Exam General Appearance: Present: wd/wn, alert, mild distress, anxious Eye Exam: Normal inspection: bilateral, PERRL: bilateral, EOMI: bilateral Ears, Nose, Throat: Present: normal ENT inspection, normal pharynx Neck: Present: normal inspection, nontender. Absent: lymphadenopathy (R), lymphadenopathy (L) Respiratory: Present: no respiratory distress, normal breath sounds, no accessory muscle use, chest nontender, lungs clear Cardiovascular/Chest: Present: regular rate, rhythm, no murmur, normal peripheral pulses Gastrointestinal/Abdominal: Present: normal bowel sounds, nontender, nondistended, soft, no organomegaly Back Exam: Present: normal inspection, normal range of motion, no CVA tenderness , no vertebral tenderness Extremity Exam: Present: normal inspection Neurological Exam: Present: alert, oriented, no motor/sensory deficits Skin Exam: Present: normal color, warm/dry. Absent: pallor, skin rash ED Progress - Date and Time Seen: Date and Time: 11/29/16 18:00 hematology could be elevated due to steroid use but feel that with use of abx and still with purulent sputum production pt. needs further abx treatment 11/29/16 18:[address] Leigh crisostomo and he recommends sending pt. home to follow up with PCP in 2-3 days. - Results and Orders Patient's Lab Results:: I have reviewed the patient's lab results. - Vital Signs Patient's Vital Signs:: I have reviewed the patient's vital signs. Vital Signs: Vital Signs 11/29/16 15:20 Temperature 37 C Pulse Rate 101 H Respiratory 20 Rate Blood Pressure 155/89 O2 Sat by Pulse 96 Oximetry - EKG EKG: NSR EKG read: Reviewed by me EKG Comments: Interpreted by Dr Chand no acute - X-Ray X-Ray #1 X-Ray: chest Interpretation: Interp. by me X-ray Comments: bronchial wall prominence. - Progress/Reassessment Chief Complaint: Upper Respiratory Symptoms Departure - Departure Clinical Impression: Bronchitis Disposition: Home self-care Condition: Good Instructions: Acute Bronchitis Additional Instructions: Please follow up with primary provider in 2-3 days Referrals: Vibha Cavazos NP [Primary Care Provider] - Prescriptions: Albuterol Sulfate [Ventolin Hfa] 2 puff IH Q4H PRN #1 inhaler PRN Reason: Shortness Of Breath Doxycycline Monohydrate 100 mg PO BID #20 tablet
[2016-11-29 16:02] LABS: Hematocrit 33.7 % (37.0-47.0); Hemoglobin 10.4 gm/dL (12.5-16.0); Mean Cell Volume 84.3 fl (78-100); Mean Corpuscular Hgb Conc 30.9 g/dl (32-36); Mean Platelet Volume 9.6 fl (6.0-9.5); Neutrophil # 12.5 K/mm3 (1.3-6.0); Neutrophil % 63.3 % (42-75.0); Platelet Count 455 K/mm3 (150-450); Red Cell Distribution Width 16.8 % (11.5-14.0); White Blood Count 19.8 K/mm3 (4.0-10.5)
[2016-11-29] MEDS ORDERED: LORazepam 1 MG TABLET ONE (16:09)
[2016-11-29 16:16] LABS: Prothrombin Time (Patient) 23.4 Seconds (9.4-11.4)
[2016-11-29 16:19] LABS: INR 2.25 INR (0.90-1.10); Partial Thrombolplastin Time 35.3 Seconds (24-32)
[2016-11-29 16:21] LABS: Total Cells Counted 100
[2016-11-29 16:23] LABS: Troponin I Less than 0.017 ng/ml (0.00-0.10)
[2016-11-29 16:25] LABS: ALT 33 U/L (19-67); AST 17 U/L (0-48); Albumin * 3.8 gm/dl (3.4-5.0); Alkaline Phosphatase * 124 U/L (50-170); Anion Gap 12.6 mmol/L (6.8-13.8); BNP * 273 pg/mL (5-205); BUN/Creatinine Ratio 22.7 (9.0-21.6); Bilirubin, Total 0.2 mg/dL (0.0-1.1); Blood Urea Nitrogen 17 mg/dL (3-23); Ca. Corrected For Albumin 8.7 mg/dL (8.4-10.2); Calcium * 8.9 mg/dL (7.9-10.9); Carbon Dioxide 30.7 mmol/L (24-32.6); Chloride 104 mmol/L (97-106); Glucose * 134 mg/dL (70-110); Potassium 3.3 mmol/L (3.4-4.6); Sodium 144 mmol/L (132-142); Total Protein 7.2 gm/dL (6.2-8.2)
[2016-11-29 16:36] LABS: Lymphocyte 38 % (20-51); Monocyte 3 % (0-9); Neutrophil 59 % (42-75); Neutrophil # 11.7 K/mm3 (1.3-6.0); Platelet Estimate Increased (NORMAL); RBC Morphology Normal (NORMAL)
[2016-11-29 18:23] VITALS: BP 123/93
== END 2016-11-29 18:23 | disposition home or self-care (01) ==
LOC: ER 15:13
DX: J20.9 Acute bronchitis, unspecified (principal); Z72.0 Tobacco use; Z86.73 Personal history of transient ischemic attack (TIA), and cerebral infarction without residual deficits; Z79.01 Long term (current) use of anticoagulants

== ENCOUNTER 2016-12-05 10:52 | Emergency (ER) | payer MEDICARE, MEDICAID ==
[2016-12-05] MEDS ORDERED: diphenhydrAMINE HCL 50 MG/ML VIAL IV ONE (12:55)
[2016-12-05] MEDS ORDERED: METOCLOPRAMIDE HCL 5 MG/ML VIAL IV ONE (12:55)
--- NOTE | 2016-12-05 13:01 | ERNOTE ---
Headache ER HPI - General Presenting Symptoms: headache Time Seen by Provider: 12/05/16 12:40 Source: patient Exam Limitations: no limitations - Immun/Allergies/Home Medications Immunizations: IMMUNIZATION HX Immunizations Up to Date Yes History of Influenza Vaccine Yes Hx Pneumococcal Vaccination Yes Allergies/Adverse Reactions: Allergies No Known Allergies Allergy (Verified 12/05/16 11:05) Home Medications: HOME MEDICATIONS Gabapentin 400 mg PO TID 10/11/16 [Last Taken Unknown] Albuterol Sulfate [Ventolin Hfa] 2 puff IH Q4H PRN #1 inhaler 11/29/16 [Last Taken Unknown] Fluticasone Propionate [Flonase] 2 spray NS BID PRN 11/29/16 [Last Taken Unknown ] Indomethacin 50 mg PO BID 11/29/16 [Last Taken Unknown] Lisinopril [Zestril] 40 mg PO DAILY 11/29/16 [Last Taken Unknown] Omeprazole 40 mg PO DAILY 11/29/16 [Last Taken Unknown] Sertraline HCl [Zoloft] 50 mg PO DAILY 11/29/16 [Last Taken Unknown] Warfarin Sodium [Coumadin] 10 mg PO DAILY 11/29/16 [Last Taken Unknown] - History of Present Illness Narrative: 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) when she started to have a severe right sided headache, describes it as throbbing, nausea , no vomiting, no other associated symptoms, no neuro deficits She has had two stroke with complete recovery, has had headaches on and off since Date (Duration): 12/05/16 Time (Timing): 10:00 Timing of Headache: gradual Context Headache: Absent: recent head injury < 24 hrs ago Quality: Present: throbbing Severity Maximum: Present: severe Severity-Currently: Present: severe Headache frequency: Present: occasional headaches Modifying Factors - (Improves): Reports: exposure to light Review of Systems - Review of Systems Constitutional: Present: recent illness - bronchititis. Absent: fever, chills EYE: Absent: blurred vision, double vision ENT: Absent: nasal drainage, sore throat Respiratory: Absent: shortness of breath, cough Cardiology: Absent: chest pain Gastrointestinal/Abdominal: Present: nausea. Absent: vomiting, diarrhea, abdominal pain Genitourinary: Present: no symptoms reported Neurological: Present: See HPI. Absent: weakness, numbness - Patient's Past Medical History Patient History - Medical: Chronic Pain, Kidney stone, Migraines, Renal Disease Patient History - Cardiac/Respiratory: CVA/Stroke Patient History - Cancer: No Hx of Cancer Patient History - Surgical Procedures: Back Surgery, Hysterectomy, Other Patient History - Other: None LMP (females 10-50): Menopausal - Family History Mother Family History - Cardiac/Respiratory: No pertinent hx dad Family History - Medical: Diabetes Type 2 Family History - Cardiac/Respiratory: No pertinent hx - Social History Living Situations: home Abuse History: No History of abuse Psych History: No pertinent hx Does anyone smoke in the home?: No Smoking Status: Never smoker Alcohol Use: rarely Drug Use: none - Immunizations Immunizations Up to Date: Yes Hx Pneumococcal Vaccination: Yes History of Influenza Vaccine: Yes Physical Exam - Physical Exam General Appearance: Present: wd/wn, alert, mild distress, anxious Eye Exam: Normal inspection: bilateral, PERRL: bilateral, EOMI: bilateral Ears, Nose, Throat: Present: normal pharynx Neck: Present: normal inspection, nontender Respiratory: Present: no respiratory distress, normal breath sounds, no accessory muscle use, lungs clear Cardiovascular/Chest: Present: regular rate, rhythm, no murmur Extremity Exam: Present: no edema Neurological Exam: Present: alert, oriented, normal mood/affect, no motor/ sensory deficits, 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 Vital Signs: Vital Signs 12/05/16 11:00 Temperature 37.0 C Pulse Rate 95 Respiratory 16 Rate Blood Pressure 184/102 O2 Sat by Pulse 96 Oximetry - Progress/Reassessment Chief Complaint: Headache Progress Note-Subjective: 12/05/16 13:59 patient feeling much better after reglan and benadryl Departure Clinical Impression: Head ache Qualifiers: Headache type: unspecified Headache chronicity pattern: acute headache Intractability: not intractable Qualified Code(s): R51 - Headache - Departure Disposition: Home self-care Condition: Good Instructions: Migraine Headache, [id number] Additional Instructions: follow up with your doctor as needed
--- OUTSIDE RECORDS SUMMARY | 2016-12-05 13:04 | XMS REPORT | Continuity of Care Document ---
:1960 Demographics Address [address] [place] [address] Mobile Phone [phone] Home Phone [phone] Email Address Preferred Language Unknown Marital Status Non- Church Affiliation Church Race White Ethnic Group Non- Author Organization [facility] ([facility]) Address [address] [place] [address] Phone [phone] Care Team Providers Name Role Phone Vibha Cavazos Primary Care Provider [phone] Source Comments This disclosure is being made pursuant to the Care Everywhere program, applicable federal and state laws, and may not contain all informaitonavailable regarding this patient.[facility] ([facility]) Active Allergies and Adverse Reactions No [...]
[2016-12-05] MEDS ORDERED: METOCLOPRAMIDE HCL 5 MG/ML VIAL ONE (13:06)
[2016-12-05] MEDS ORDERED: diphenhydrAMINE HCL 50 MG/ML VIAL ONE (13:06)
[2016-12-05 13:33] VITALS: BP 157/84
== END 2016-12-05 14:03 | disposition home or self-care (01) ==
LOC: ER 10:52
DX: R51 Headache (principal); Z87.442 Personal history of urinary calculi

== ENCOUNTER 2016-12-17 13:46 | Emergency (ER) | payer MEDICARE, MEDICAID ==
[2016-12-17 15:36] LABS: Hematocrit 36.7 % (37.0-47.0); Hemoglobin 11.4 gm/dL (12.5-16.0); Mean Cell Volume 83.2 fl (78-100); Mean Corpuscular Hemoglobin 25.9 pg (27-31); Mean Corpuscular Hgb Conc 31.1 g/dl (32-36); Mean Platelet Volume 9.7 fl (6.0-9.5); Neutrophil # 6.1 K/mm3 (1.3-6.0); Neutrophil % 70.4 % (42-75.0); Platelet Count 406 K/mm3 (150-450); Red Blood Count 4.41 M/mm3 (4.2-5.4); Red Cell Distribution Width 17.1 % (11.5-14.0); White Blood Count 8.6 K/mm3 (4.0-10.5)
--- OUTSIDE RECORDS SUMMARY | 2016-12-17 15:45 | XMS REPORT | Continuity of Care Document ---
:1960 Demographics Address [address] [place] [address] Mobile Phone [phone] Home Phone [phone] Email Address Preferred Language Unknown Marital Status Non- Advent Affiliation Mosque Race White Ethnic Group Non- Author Organization [facility] ([facility]) Address [address] [place] [address] Phone [phone] Care Team Providers Name Role Phone Vibha Cavazos Primary Care Provider [phone] Source Comments This disclosure is being made pursuant to the Care Everywhere program, applicable federal and state laws, and may not contain all informaitonavailable regarding this patient.[facility] ([facility]) Active Allergies and Adverse Reactions No [...]
[2016-12-17 15:51] LABS: Albumin * 3.9 gm/dl (3.4-5.0); Anion Gap 12.5 mmol/L (6.8-13.8); BUN/Creatinine Ratio 16.9 (9.0-21.6); Bilirubin, Total 0.3 mg/dL (0.0-1.1); Ca. Corrected For Albumin 8.6 mg/dL (8.4-10.2); Calcium * 8.8 mg/dL (7.9-10.9); Carbon Dioxide 27.7 mmol/L (24-32.6); Potassium 4.2 mmol/L (3.4-4.6); Total Protein 7.3 gm/dL (6.2-8.2)
[2016-12-17 16:01] LABS: INR 3.31 INR (0.90-1.10); Prothrombin Time (Patient) 34.4 Seconds (9.4-11.4)
[2016-12-17 16:02] LABS: Partial Thrombolplastin Time 44.6 Seconds (24-32)
--- NOTE | 2016-12-17 17:27 | ERNOTE ---
Headache ER HPI - Narrative Date of Service: 12/17/16 - General Presenting Symptoms: "migraine" Time Seen by Provider: 12/17/16 15:38 Source: patient Exam Limitations: no limitations - Immun/Allergies/Home Medications Immunizations: IMMUNIZATION HX Immunizations Up to Date Yes History of Influenza Vaccine Yes Hx Pneumococcal Vaccination Yes Allergies/Adverse Reactions: Allergies No Known Allergies Allergy (Verified 12/17/16 14:44) Home Medications: HOME MEDICATIONS Gabapentin 400 mg PO TID 10/11/16 [Last Taken Unknown] Albuterol Sulfate [Ventolin Hfa] 2 puff IH Q4H PRN #1 inhaler 11/29/16 [Last Taken Unknown] Fluticasone Propionate [Flonase] 2 spray NS BID PRN 11/29/16 [Last Taken Unknown ] Lisinopril [Zestril] 40 mg PO DAILY 11/29/16 [Last Taken Unknown] Omeprazole 40 mg PO DAILY 11/29/16 [Last Taken Unknown] Sertraline HCl [Zoloft] 50 mg PO DAILY 11/29/16 [Last Taken Unknown] Warfarin Sodium [Coumadin] 10 mg PO DAILY 11/29/16 [Last Taken Unknown] - Pain Pain Score: 5 - History of Present Illness Date (Duration): 12/17/16 Timing of Headache: cannot pinpoint onset Context Headache: Present: new onset Quality: Present: throbbing Severity Maximum: Present: mild Severity-Currently: Present: mild Headache frequency: Present: chronic headaches Modifying Factors - (Improves): Reports: medication Modifying Factors - (Worsens): Reports: medication Associated Symptoms: Reports: speech problems Exacerbated by:: Denies: light, noise, movement Prior Treament: Reports: similar symptoms before - Patient's Past Medical History Patient History - Medical: Chronic Pain, Kidney stone, Migraines, Renal Disease Patient History - Cardiac/Respiratory: CVA/Stroke Patient History - Cancer: No Hx of Cancer Patient History - Surgical Procedures: Appendectomy, Back Surgery, Cholecystectomy, Hysterectomy Patient History - Other: None LMP (females 10-50): Menopausal - Family History Mother Family History - Cardiac/Respiratory: No pertinent hx dad Family History - Medical: Diabetes Type 2 Family History - Cardiac/Respiratory: No pertinent hx - Social History Living Situations: home Abuse History: No History of abuse Psych History: No pertinent hx Does anyone smoke in the home?: No Alcohol Use: rarely Drug Use: none - Immunizations Immunizations Up to Date: Yes Hx Pneumococcal Vaccination: Yes History of Influenza Vaccine: Yes Physical Exam - Physical Exam General Appearance: Present: wd/wn, alert, no apparent distress Eye Exam: Normal inspection: bilateral, PERRL: bilateral Ears, Nose, Throat: Present: normal ENT inspection Neck: Present: normal inspection, nontender Respiratory: Present: no respiratory distress, normal breath sounds, no accessory muscle use, lungs clear Cardiovascular/Chest: Present: regular rate, rhythm, no murmur, normal peripheral pulses Gastrointestinal/Abdominal: Present: normal bowel sounds, nontender, nondistended, soft Back Exam: Present: normal inspection, normal range of motion Extremity Exam: Present: normal inspection, normal range of motion, no edema Neurological Exam: Present: alert, oriented, normal mood/affect, no motor/ sensory deficits, 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 Absent: facial droop Skin Exam: Present: normal color, warm/dry Lymphatic Exam: Present: no adenopathy ED Progress - Results and Orders Patient's Lab Results:: I have reviewed the patient's lab results. Results and Orders: no acute findings - Vital Signs Vital Signs: Vital Signs 12/17/16 14:40 Temperature 37.0 C Pulse Rate 96 Respiratory 14 Rate Blood Pressure 155/83 - CT/Ultrasound CT/Ultrasound Narrative: Technique: Multiple axial images were obtained through the brain without the use of IV contrast. Findings: The lateral ventricles and sulci are symmetric and within normal limits for the patient's age. I do not see evidence for acute blood, extra-axial collection, or mass effect. I do not see evidence for chronic infarction. The 3rd and 4th ventricles are midline and are of normal size. There is some streak artifact in the posterior fossa, but the cerebellum and visualized marisol appear normal. The ethmoid sinuses demonstrate no significant mucosal disease. The frontal, sphenoid, and visualized maxillary sinuses are clear. The mastoid air cells and middle ears appear to be normally aerated. Bone windows demonstrate no evidence for fracture. I do not see evidence for significant soft tissue swelling overlying the calvarium. IMPRESSION: 1. NO ACUTE INTRACRANIAL PROCESS Electronically signed by Jluis Michelle M.D - Progress/Reassessment Chief Complaint: Headache Progress:: Improved Departure Clinical Impression: Migraine Qualifiers: Migraine type: unspecified Status migrainosus presence: without status migrainosus Intractability: not intractable Qualified Code(s): G43.909 - Migraine, unspecified, not intractable, without status migrainosus - Departure Condition: Good Instructions: Migraine Headache, [id number] Additional Instructions: Continue previous home medications as directed. Follow-up with your primary care provider regarding her migraines. Return to emergency room if symptoms persist or return.
[2016-12-17] MEDS ORDERED: diphenhydrAMINE HCL 50 MG/ML VIAL IV ONE (17:38)
[2016-12-17] MEDS ORDERED: METOCLOPRAMIDE HCL 5 MG/ML VIAL IV ONE (17:38)
[2016-12-17] MEDS ORDERED: METOCLOPRAMIDE HCL 5 MG/ML VIAL ONE (17:42)
[2016-12-17] MEDS ORDERED: diphenhydrAMINE HCL 50 MG/ML VIAL ONE (17:42)
[2016-12-17] MEDS ORDERED: traMADol HCL 50 MG TABLET PO ONE (18:13)
[2016-12-17] MEDS ORDERED: traMADol HCL 50 MG TABLET ONE (18:44)
[2016-12-17 18:49] VITALS: BP 123/85
== END 2016-12-17 18:57 | disposition home or self-care (01) ==
LOC: ER 13:46
DX: G43.909 Migraine, unspecified, not intractable, without status migrainosus (principal); Z87.442 Personal history of urinary calculi; Z79.1 Long term (current) use of non-steroidal anti-inflammatories (NSAID); I63.9 Cerebral infarction, unspecified

== ENCOUNTER 2017-01-28 05:42 | Emergency (ER) | payer MEDICARE, MEDICAID ==
[2017-01-28] MEDS ORDERED: ALBUTEROL SULFATE/IPRATROPIUM 3 ML NEBU IH ONE (06:09)
[2017-01-28] MEDS: ALBUTEROL SULFATE/IPRATROPIUM 3 ML NEBU IH ONE (06:10)
--- NOTE | 2017-01-28 06:18 | ERNOTE ---
Dyspnea - General Presenting Symptoms: shortness of breath, other - coughing Time Seen by Provider: 01/28/17 06:01 Source: patient Exam Limitations: no limitations - Immun/Allergies/Home Medications Immunizations: IMMUNIZATION HX Immunizations Up to Date Yes History of Influenza Vaccine Yes Hx Pneumococcal Vaccination Yes Allergies/Adverse Reactions: Allergies No Known Allergies Allergy (Verified 01/28/17 05:49) Home Medications: HOME MEDICATIONS Gabapentin 400 mg PO TID 10/11/16 [Last Taken Unknown] Albuterol Sulfate [Ventolin Hfa] 2 puff IH Q4H PRN #1 inhaler 11/29/16 [Last Taken Unknown] Fluticasone Propionate [Flonase] 2 spray NS BID PRN 11/29/16 [Last Taken Unknown ] Lisinopril [Zestril] 40 mg PO DAILY 11/29/16 [Last Taken Unknown] Omeprazole 40 mg PO DAILY 11/29/16 [Last Taken Unknown] Sertraline HCl [Zoloft] 50 mg PO DAILY 11/29/16 [Last Taken Unknown] Benzonatate [Tessalon Perle] 100 mg PO TID PRN #20 capsule 01/28/17 [Last Taken Unknown] Rivaroxaban [Xarelto] 10 mg PO DAILY 01/28/17 [Last Taken Unknown] predniSONE [Prednisone] 10 mg PO DAILY #26 tablet 01/28/17 [Last Taken Unknown] - History of Present Illness Narrative: Pt has been coughing for 1 week. She saw her PCP on week ago and was placed on prednisone and doxycycline. She has not improved. Severity: moderate, severe Initiating event: Reports: upper resp illness Frequency of episodes: Reports: occassional episodes - had bronchitis from October through November and was better until last week Modifying Factors (Worsens): Reports: activity, coughing, lying down Associated Symptoms-Dyspnea: Reports: fever/chills, sweating Prior Treatment: Reports: recently seen, treated by physician Review of Systems - Review of Systems Constitutional: Present: recent illness, fever, chills EYE: Present: no symptoms reported ENT: Present: no symptoms reported Respiratory: Present: See HPI, shortness of breath, cough Cardiology: Present: chest pain - when coughing Gastrointestinal/Abdominal: Present: no symptoms reported Genitourinary: Present: no symptoms reported Musculoskeletal: Present: no symptoms reported Skin: Present: no symptoms reported Neurological: Present: no symptoms reported Endocrine: Present: no symptoms reported Hematologic/Lymphatic: Present: no symptoms reported Psych: Present: no symptoms reported - Patient's Past Medical History Patient History - Medical: Chronic Pain, Kidney stone, Migraines, Renal Disease Patient History - Cardiac/Respiratory: CVA/Stroke Patient History - Cancer: No Hx of Cancer Patient History - Surgical Procedures: Appendectomy, Back Surgery, Cholecystectomy, Hysterectomy Patient History - Other: None - Family History Mother Family History - Cardiac/Respiratory: No pertinent hx dad Family History - Medical: Diabetes Type 2 Family History - Cardiac/Respiratory: No pertinent hx - Social History Living Situations: home Abuse History: No History of abuse Psych History: No pertinent hx Does anyone smoke in the home?: No Smoking Status: Former smoker Alcohol Use: rarely Drug Use: none - Immunizations Immunizations Up to Date: Yes Hx Pneumococcal Vaccination: Yes History of Influenza Vaccine: Yes Physical Exam - Physical Exam General Appearance: Present: wd/wn, alert, mild distress Eye Exam: Normal inspection: bilateral, PERRL: bilateral Neck: Present: normal inspection, nontender Respiratory: Present: no respiratory distress, no accessory muscle use, wheezing - mostly end expiratory, upper lobes, other - frequent sharp, hacking cough in groups of 3-5, 1-2 times a minute Cardiovascular/Chest: Present: tachycardia Back Exam: Present: normal inspection, normal range of motion, no vertebral tenderness Extremity Exam: Present: normal inspection, normal range of motion, no edema Neurological Exam: Present: alert, oriented, normal mood/affect Skin Exam: Present: normal color, warm/dry ED Progress - Results and Orders Patient's Lab Results:: I have reviewed the patient's lab results. Results and Orders: Laboratory Tests 01/28/17 01/28/17 06:20 06:20 WBC 13.9 H Hgb 9.4 L Hct 31.0 L Plt Count 355 Neutrophils % 75.5 H Sodium 138 Potassium 3.8 Chloride 100 Carbon Dioxide 27.8 Anion Gap 14.0 H BUN 10 Creatinine 0.85 Est GFR (Non-Af Amer) 74 BUN/Creatinine Ratio 11.8 Random Glucose 183 H Calcium 9.0 Total Bilirubin 0.6 AST 394 H ALT 194 H Alkaline Phosphatase 252 H Total Protein 7.0 Albumin 3.5 Laboratory Tests 05/31/17 05/31/17 06:10 06:20 Lactic Acid, Venous 2.0 H Procalcitonin 0.07 - Vital Signs Patient's Vital Signs:: I have reviewed the patient's vital signs. Vital Signs: Vital Signs 01/28/17 05:45 Temperature 38.3 C H Pulse Rate 113 H Respiratory 24 H Rate Blood Pressure 151/83 O2 Sat by Pulse 95 Oximetry - EKG EKG: other - sinus tachycardia due to fever/ illness EKG read: Interp. by me - X-Ray X-Ray #1 X-Ray: chest Interpretation: Interp. by me X-ray Comments: normal - Progress/Reassessment Chief Complaint: Dyspnea Progress:: Unchanged Progress Note-Subjective: 01/28/17 07:50 discussed minimally elevated lactic acid and very low procalcitonin that suggests more of a viral infection. discussed elevated liver enzymes and tylenol intake. Departure Clinical Impression: Bronchitis, Elevated liver enzymes - Departure Disposition: Home Follow Up Needed Condition: Fair Instructions: Acute Bronchitis, [id number] Additional Instructions: Do not take any tylenol (acetaminophen). Have your liver enzymes retested by your regular doctor at your next visit. See your regular doctor as scheduled. Prescriptions: Benzonatate [Tessalon Perle] 100 mg PO TID PRN #20 capsule PRN Reason: Cough predniSONE [Prednisone] 10 mg PO DAILY #26 tablet
[2017-01-28 06:23] LABS: Hemoglobin 9.4 gm/dL (12.5-16.0); Mean Cell Volume 82.2 fl (78-100); Mean Corpuscular Hemoglobin 24.9 pg (27-31); Mean Corpuscular Hgb Conc 30.3 g/dl (32-36); Mean Platelet Volume 9.8 fl (6.0-9.5); Neutrophil # 10.5 K/mm3 (1.3-6.0); Neutrophil % 75.5 % (42-75.0); Platelet Count 355 K/mm3 (150-450); Red Blood Count 3.77 M/mm3 (4.2-5.4); Red Cell Distribution Width 16.5 % (11.5-14.0); White Blood Count 13.9 K/mm3 (4.0-10.5)
[2017-01-28] MEDS ORDERED: BENZONATATE 100 MG CAPSULE PO ONE (06:41)
[2017-01-28] MEDS ORDERED: METHYLPREDNISOLONE SOD SUCC/PF 125 MG/2 ML VIAL ONE (06:41)
[2017-01-28 06:43] LABS: Albumin * 3.5 gm/dl (3.4-5.0); BUN/Creatinine Ratio 11.8 (9.0-21.6); Bilirubin, Total 0.6 mg/dL (0.0-1.1); Ca. Corrected For Albumin 9.1 mg/dL (8.4-10.2); Carbon Dioxide 27.8 mmol/L (24-32.6); Potassium 3.8 mmol/L (3.4-4.6)
[2017-01-28] MEDS: BENZONATATE 100 MG CAPSULE PO ONE (06:43)
[2017-01-28] MEDS: METHYLPREDNISOLONE SOD SUCC/PF 125 MG/2 ML VIAL IV ONE (06:44)
[2017-01-28 08:07] VITALS: BP 121/85
--- OUTSIDE RECORDS SUMMARY | 2017-01-28 11:17 | XMS REPORT | Continuity of Care Document ---
:1960 Demographics Address [address] [place] [address] Mobile Phone [phone] Home Phone [phone] Email Address Preferred Language Unknown Marital Status Non- Orthodox Affiliation Mandaen Race White Ethnic Group Non- Author Organization [facility] ([facility]) Address [address] [place] [address] Phone [phone] Care Team Providers Name Role Phone Vibha Cavazos Primary Care Provider [phone] Source Comments This disclosure is being made pursuant to the Care Everywhere program, applicable federal and state laws, and may not contain all informaitonavailable regarding this patient.[facility] ([facility]) Active Allergies and Adverse Reactions No Known [...]
== END 2017-01-28 08:08 | disposition home or self-care (01) ==
LOC: ER 05:42
DX: R94.5 Abnormal results of liver function studies (principal); J20.9 Acute bronchitis, unspecified; R00.0 Tachycardia, unspecified; Z87.891 Personal history of nicotine dependence

== ENCOUNTER 2017-02-12 07:31 | Emergency (ER) | payer MEDICARE, MEDICAID ==
[2017-02-12] MEDS ORDERED: ONDANSETRON HCL/PF 2 MG/ML VIAL IV ONE (07:43)
[2017-02-12] MEDS ORDERED: HYDROmorphone HCL 1 MG/ML DISP.SYRIN IV ONE ×2 (07:44→09:08)
--- OUTSIDE RECORDS SUMMARY | 2017-02-12 07:55 | XMS REPORT | Continuity of Care Document ---
:1960 Demographics Address [address] [place] [address] Mobile Phone [phone] Home Phone [phone] Email Address Preferred Language Unknown Marital Status Non- Judaism Affiliation Hinduism Race White Ethnic Group Non- Author Organization ([facility]) Address [address] [place] [address] Phone [phone] Care Team Providers Name Role Phone Vibha Cavazos Primary Care Provider [phone] Source Comments This disclosure is being made pursuant to the Care Everywhere program, applicable federal and state laws, and may not contain all informaitonavailable regarding this patient. ([facility]) Active Allergies and Adverse Reactions No [...]
[2017-02-12] MEDS ORDERED: ONDANSETRON HCL/PF 2 MG/ML VIAL ONE (07:57)
[2017-02-12] MEDS ORDERED: HYDROmorphone HCL 1 MG/ML DISP.SYRIN ONE ×2 (07:57→09:09)
--- NOTE | 2017-02-12 07:57 | ERNOTE ---
<Naomi Villanueva - Last Filed: 02/12/17 07:45> ER Female HPI Stated Complaint: KIDNEY PAIN Presenting Symptoms: other Time Seen by Provider: 02/12/17 07:33 Source: patient Exam Limitations: no limitations Immunizations: IMMUNIZATION HX Immunizations Up to Date Yes History of Influenza Vaccine Yes Hx Pneumococcal Vaccination Yes Allergies/Adverse Reactions: Allergies No Known Allergies Allergy (Verified 02/12/17 07:39) Home Medications: HOME MEDICATIONS Gabapentin 400 mg PO TID 10/11/16 [Last Taken Unknown] Albuterol Sulfate [Ventolin Hfa] 2 puff IH Q4H PRN #1 inhaler 11/29/16 [Last Taken Unknown] Lisinopril [Zestril] 40 mg PO DAILY 11/29/16 [Last Taken Unknown] Omeprazole 40 mg PO DAILY 11/29/16 [Last Taken Unknown] Sertraline HCl [Zoloft] 100 mg PO DAILY 11/29/16 [Last Taken Unknown] Rivaroxaban [Xarelto] 10 mg PO DAILY 01/28/17 [Last Taken Unknown] HYDROcodone/ACETAMINOPHEN [[place] 5-325] 1 tab PO Q6H PRN #15 tab 02/12/17 [Last Taken Unknown] Levofloxacin [Levaquin] 500 mg PO DAILY #10 tab 02/12/17 [Last Taken Unknown] - History of Present Illness Narrative: Patient has a history of kidney stones and thinks she might be having another one. She started two days ago with right sided flank pain and nausea. the pain resolved yesterday afternoon and she thought she might have passed the stone and had pink urine. She usually has passed the stones spontaneously, last one a few years ago. The pain restarted around 01:00, right flank again, associated vomiting, 04/09. She also has had burning with urination, urgency, a couple of loose stools, no persistent diarrhea Timing: Present: constant Quality: Present: severe Onset Location: Present: right flank Radiation: Present: suprapubic Activities at Onset: Present: none Prior Abdominal Problems: Present: similar symptoms Associated Symptoms: Present: nausea, vomiting, dysuria, urinary frequency. Absent: fever/chills, diaphoresis Prior Treatment: Absent: recently seen, currently on antibiotics Review of Systems - Review of Systems Constitutional: Absent: recent illness, fever, chills ENT: Absent: nose congestion, sore throat Cardiology: Absent: chest pain Gastrointestinal/Abdominal: Present: See HPI Genitourinary: Present: See HPI Musculoskeletal: Present: other - flank pain Neurological: Absent: headache, weakness, numbness - Patient's Past Medical History Patient History - Medical: Chronic Pain, Kidney stone, Migraines, Renal Disease Patient History - Cardiac/Respiratory: CVA/Stroke, Hypertension Patient History - Cancer: No Hx of Cancer Patient History - Surgical Procedures: Appendectomy, Back Surgery, Cholecystectomy, Hysterectomy Patient History - Other: None - Family History Mother Family History - Cardiac/Respiratory: No pertinent hx dad Family History - Medical: Diabetes Type 2 Family History - Cardiac/Respiratory: No pertinent hx - Social History Living Situations: home Abuse History: No History of abuse Psych History: No pertinent hx Does anyone smoke in the home?: No Smoking Status: Never smoker Have you smoked in the past 12 months: No Alcohol Use: rarely Drug Use: none - Immunizations Immunizations Up to Date: Yes Hx Pneumococcal Vaccination: Yes History of Influenza Vaccine: Yes Physical Exam - Physical Exam General Appearance: Present: wd/wn, alert, mild distress Respiratory: Present: no respiratory distress, normal breath sounds, no accessory muscle use, lungs clear Cardiovascular/Chest: Present: regular rate, rhythm, no murmur Gastrointestinal/Abdominal: Present: normal bowel sounds, nondistended, soft, tenderness - right side of abdomen Back Exam: Present: CVA tenderness (R). Absent: CVA tenderness (L) Neurological Exam: Present: alert, oriented, normal mood/affect Skin Exam: Present: normal color, warm/dry ED Progress - Vital Signs Patient's Vital Signs:: I have reviewed the patient's vital signs. Vital Signs: Vital Signs 02/12/17 07:34 Temperature 36.7 C Pulse Rate 93 Respiratory 12 Rate Blood Pressure 183/80 O2 Sat by Pulse 96 Oximetry - Progress/Reassessment Chief Complaint: Genitourinary Problem - Transfer of Care Physician Sign Out: Naomi Villanueva Receiving Physician: Oliver Velasquez Pending Results: Labs Departure Clinical Impression: Right flank pain, UTI (urinary tract infection) - Departure Disposition: Home self-care Condition: Stable Instructions: Urinary Tract Infection, Adult, [id number] Additional Instructions: Rest. Fluids. I want you to re-checked by your doctor tomorrow. Take antibiotics and pain medications as directed, no driving while taking. Return here immediately for fever, vomiting, increased pain or if your condition worsens or changes in any way. Prescriptions: HYDROcodone/ACETAMINOPHEN [[place] 5-325] 1 tab PO Q6H PRN #15 tab PRN Reason: Pain Levofloxacin [Levaquin] 500 mg PO DAILY #10 tab <Oliver Velasquez - Last Filed: 02/12/17 12:29> ER Female HPI Immunizations: IMMUNIZATION HX Immunizations Up to Date Yes History of Influenza Vaccine Yes Hx Pneumococcal Vaccination Yes ED Progress - Results and Orders Patient's Lab Results:: I have reviewed the patient's lab results. - Vital Signs Patient's Vital Signs:: I have reviewed the patient's vital signs. Vital Signs: Vital Signs 02/12/17 02/12/17 02/12/17 07:34 08:20 09:17 Temperature 36.7 C Pulse Rate 93 84 84 Respiratory 12 14 14 Rate Blood Pressure 183/80 126/65 118/68 O2 Sat by Pulse 96 96 94 Oximetry 02/12/17 10:13 Temperature Pulse Rate 89 Respiratory 14 Rate Blood Pressure 154/92 O2 Sat by Pulse 91 Oximetry - CT/Ultrasound CT/Ultrasound Narrative: I reviewed both CT scans and spoke with Dr Edmonds the radiologist - Progress/Reassessment Progress Note-Subjective: 02/12/17 12:21 I took the patient over at shift change from Dr Villanueva. She has evidence of UTI. Initial CT was equivocal for kidney stone. Her urologist is at the [facility]. I spoke with Dr Colon who was validation specialist at the [facility]. He recommended CT urogram to see if obstruction or stone. If no clear kidney stone in ureter or no obstruction she can be treated with BAx, if kidney stone in ureter I was to call him back. Second CT reveals no evidence of obstructive uropathy or kidney stone. No indication for transfer at this time given this. IV ABx given. Mildly low K+. She feels like going home. i discussed warning signs and reasons to return as well as the need for close f/u. No findings of sepsis or toxicity. She wishes to go home. Please see Dr Villanueva's note for full H&P.
[2017-02-12 08:00] LABS: Hematocrit 33.6 % (37.0-47.0); Hemoglobin 10.1 gm/dL (12.5-16.0); Mean Cell Volume 81.4 fl (78-100); Mean Corpuscular Hemoglobin 24.5 pg (27-31); Mean Corpuscular Hgb Conc 30.1 g/dl (32-36); Mean Platelet Volume 10.1 fl (6.0-9.5); Neutrophil # 5.7 K/mm3 (1.3-6.0); Neutrophil % 52.9 % (42-75.0); Platelet Count 488 K/mm3 (150-450); Red Blood Count 4.13 M/mm3 (4.2-5.4); Red Cell Distribution Width 16.8 % (11.5-14.0); White Blood Count 10.8 K/mm3 (4.0-10.5)
[2017-02-12 08:02] LABS: Urine Bilirubin Negative (NEGATIVE); Urine Ketone Negative (NEGATIVE); Urine Nitrite Negative (NEGATIVE); Urine Protein 15 mg/dL (NEGATIVE); Urine Specific Gravity >=1.030 SP.GR. (1.005-1.010); Urine Urobilinogen Normal (NORMAL)
[2017-02-12 08:13] LABS: Urine Blood 5 /ul (NEGATIVE)
[2017-02-12 08:13] LABS: Albumin * 3.7 gm/dl (3.4-5.0); Anion Gap 12.6 mmol/L (6.8-13.8); Bilirubin, Total 0.4 mg/dL (0.0-1.1); Ca. Corrected For Albumin 8.9 mg/dL (8.4-10.2); Carbon Dioxide 29.4 mmol/L (24-32.6); Total Protein 7.5 gm/dL (6.2-8.2)
[2017-02-12 08:14] LABS: Urine Appearance Slightly Cloudy; Urine Bacteria 2+; Urine Color Yellow; Urine RBC TRACE /hpf (0-5)
[2017-02-12 08:18] LABS: Urine Coarse Granular Cast 0-5 /LPF
[2017-02-12] MEDS ORDERED: POTASSIUM CHLORIDE 20 MEQ TABLET.SA PO ONE (08:28)
[2017-02-12] MEDS ORDERED: POTASSIUM CHLORIDE 20 MEQ TABLET.SA ONE (08:32)
[2017-02-12 10:14] VITALS: BP 154/92
== END 2017-02-12 12:44 | disposition home or self-care (01) ==
LOC: ER 07:31
DX: N39.0 Urinary tract infection, site not specified (principal); Z87.442 Personal history of urinary calculi
CPT/HCPCS: 36415; 74176; 74177; 80053; 81001; 82150; 83690; 85025; 87086; 96365; 96375; 99284; J2405

== ENCOUNTER 2017-02-20 20:50 | Emergency (ER) | payer MEDICARE, MEDICAID ==
[2017-02-20] MEDS ORDERED: KETOROLAC TROMETHAMINE 30 MG/ML VIAL IV ONE (21:10)
[2017-02-20] MEDS ORDERED: ACETAMINOPHEN 500 MG TABLET PO ONE (21:12)
[2017-02-20] MEDS ORDERED: KETOROLAC TROMETHAMINE 30 MG/ML VIAL ONE (21:20)
[2017-02-20 21:33] LABS: Hematocrit 35.3 % (37.0-47.0); Hemoglobin 10.8 gm/dL (12.5-16.0); Mean Cell Volume 79.9 fl (78-100); Mean Corpuscular Hemoglobin 24.4 pg (27-31); Mean Corpuscular Hgb Conc 30.6 g/dl (32-36); Mean Platelet Volume 9.8 fl (6.0-9.5); Neutrophil # 7.8 K/mm3 (1.3-6.0); Neutrophil % 66.9 % (42-75.0); Platelet Count 456 K/mm3 (150-450); Red Blood Count 4.42 M/mm3 (4.2-5.4); Red Cell Distribution Width 16.6 % (11.5-14.0); White Blood Count 11.7 K/mm3 (4.0-10.5)
[2017-02-20 21:48] LABS: Calcium * 9.8 mg/dL (7.9-10.9); Carbon Dioxide 26.5 mmol/L (24-32.6); Estimated Creat Clear 48.1; Potassium 3.5 mmol/L (3.4-4.6)
[2017-02-20] MEDS ORDERED: HYDROmorphone HCL 1 MG/ML DISP.SYRIN IV ONE (22:04)
[2017-02-20] MEDS ORDERED: HYDROmorphone HCL 1 MG/ML DISP.SYRIN ONE ×2 (22:06→23:30)
[2017-02-20 22:10] LABS: Urine Appearance Slightly Cloudy; Urine Bacteria 1+; Urine Bilirubin Negative (NEGATIVE); Urine Blood Negative /ul (NEGATIVE); Urine Color Yellow; Urine Ketone 15 mg/dL (NEGATIVE); Urine Nitrite Negative (NEGATIVE); Urine Protein 30 mg/dL (NEGATIVE); Urine RBC None Seen /hpf (0-5); Urine Urobilinogen Normal (NORMAL); Urine WBC 0-5 /hpf (0-5); Urine pH 5.5 pH (5.0-7.0)
--- NOTE | 2017-02-20 23:18 | ERNOTE ---
Abdominal HPI - General Chief Complaint: Abdominal Pain Time Seen by Provider: 02/20/17 21:06 - Immun/Allergies/Home Medications Immunizatons: IMMUNIZATION HX Immunizations Up to Date Yes History of Influenza Vaccine Yes Hx Pneumococcal Vaccination Yes Allergies/Adverse Reactions: Allergies No Known Allergies Allergy (Verified 02/23/17 15:42) Home Medications: HOME MEDICATIONS Gabapentin 400 mg PO TID 10/11/16 [Last Taken Unknown] Albuterol Sulfate [Ventolin Hfa] 2 puff IH Q4H PRN #1 inhaler 11/29/16 [Last Taken Unknown] Lisinopril [Zestril] 40 mg PO DAILY 11/29/16 [Last Taken Unknown] Omeprazole 40 mg PO DAILY 11/29/16 [Last Taken Unknown] Sertraline HCl [Zoloft] 100 mg PO DAILY 11/29/16 [Last Taken Unknown] Rivaroxaban [Xarelto] 10 mg PO DAILY 01/28/17 [Last Taken Unknown] Levofloxacin [Levaquin] 500 mg PO DAILY #10 tab 02/12/17 [Last Taken Unknown] HYDROcodone/ACETAMINOPHEN [[place] 5-325] 1 each PO QID PRN #15 tablet 02/20/17 [ Last Taken Unknown] Nitrofurantoin/Nitrofuran Mac [Macrobid] 100 mg PO Q12H #20 cap 02/20/17 [Last Taken Unknown] Ondansetron [Zofran Odt] 4 mg PO Q4H PRN #10 tab 02/23/17 [Last Taken Unknown] - History of Present Illness Narrative: RLQ pain that is sharp for the last 7 days. She has also had dysuria and urinary frequency for the last seven days as well. Has been taking Levaquin for the last 7 days, with some improvement of the UTI symptoms. The RLQ pain increases with bending, increased valsalva maneuvers, or coughing. Similar pain is also associated with kidney stones. Seen in the ED on 02/12/2017 for the RLQ pain, a CT was done which showed a possible ureteral calculi. Timing: constant Quality: moderate Activities at Onset: none Modifying Factors - (Improves): Present: rest Modifying Factors - (Worsens): Present: coughing, defecating, movement Associated Symptoms: Present: denies symptoms Prior Abdominal Problems: Present: similar symptoms Prior Treatment: Present: recently seen Review of Systems - Review of Systems Constitutional: Present: no symptoms reported EYE: Present: no symptoms reported ENT: Present: no symptoms reported Respiratory: Present: no symptoms reported Cardiology: Present: no symptoms reported Gastrointestinal/Abdominal: Present: See HPI Genitourinary: Present: no symptoms reported Musculoskeletal: Present: no symptoms reported Skin: Present: no symptoms reported Neurological: Present: no symptoms reported Endocrine: Present: no symptoms reported Hematologic/Lymphatic: Present: no symptoms reported - Patient's Past Medical History Patient History - Medical: Chronic Pain, Kidney stone, Migraines, Renal Disease Patient History - Cardiac/Respiratory: CVA/Stroke, Hypertension Patient History - Cancer: No Hx of Cancer Patient History - Surgical Procedures: Appendectomy, Back Surgery, Cholecystectomy, Hysterectomy Patient History - Other: None LMP (females 10-50): Menopausal - Family History Mother Family History - Cardiac/Respiratory: No pertinent hx dad Family History - Medical: Diabetes Type 2 Family History - Cardiac/Respiratory: No pertinent hx - Social History Living Situations: home Abuse History: No History of abuse Psych History: No pertinent hx Does anyone smoke in the home?: No Smoking Status: Former smoker Have you smoked in the past 12 months: No Do you dip or chew tobacco: Yes Alcohol Use: rarely Drug Use: none - Immunizations Immunizations Up to Date: Yes Hx Pneumococcal Vaccination: Yes History of Influenza Vaccine: Yes Physical Exam - Physical Exam General Appearance: Present: mild distress Eye Exam: Normal inspection: bilateral Ears, Nose, Throat: Present: normal ENT inspection Neck: Present: normal inspection Respiratory: Present: no respiratory distress Cardiovascular/Chest: Present: regular rate, rhythm Gastrointestinal/Abdominal: Present: tenderness - RLQ on deep palpation Back Exam: Present: normal inspection Extremity Exam: Present: normal inspection Neurological Exam: Present: alert, oriented Skin Exam: Present: normal color ED Progress - Results and Orders Patient's Lab Results:: I have reviewed the patient's lab results. - Vital Signs Patient's Vital Signs:: I have reviewed the patient's vital signs. Vital Signs: Vital Signs 02/20/17 02/20/17 02/20/17 21:01 22:09 22:49 Temperature 36.6 C Pulse Rate 114 H 91 90 Respiratory 18 18 18 Rate Blood Pressure 134/85 155/73 130/80 O2 Sat by Pulse 97 98 98 Oximetry - X-Ray X-Ray #1 X-Ray: abdomen Interpretation: Interp. by me X-ray Comments: no actue disease - Progress/Reassessment Chief Complaint: Abdominal Pain Progress:: Improved Progress Note-Subjective: 02/20/17 23:25 The pain was controlled with Dilaudid. 02/20/17 23:30 She should discontinue the Levaquin and start Macrobid. 02/20/17 23:32 The location, physical exam and the history would suggest the pain is due to a hernia? Departure - Departure Clinical Impression: Right lower quadrant abdominal pain Disposition: Home self-care Condition: Good Instructions: Abdominal Pain, Adult, [id number] Print Language: Nigerian Additional Instructions: If the pain gets worse return to the ED. See Dr. Balderrama for follow up. Discontinue the Levaquin. Referrals: Mario Barbour MD [Staff Physician] - Prescriptions: HYDROcodone/ACETAMINOPHEN [[place] 5-325] 1 each PO QID PRN #15 tablet PRN Reason: abdominal pain Nitrofurantoin/Nitrofuran Mac [Macrobid] 100 mg PO Q12H #20 cap
[2017-02-20] MEDS ORDERED: HYDROmorphone HCL 1 MG/ML DISP.SYRIN IM ONE (23:23)
[2017-02-20] MEDS ORDERED: NITROFURANTOIN/NITROFURAN MAC 100 MG CAPSULE PO SCH (23:30)
[2017-02-20] MEDS ORDERED: NITROFURANTOIN/NITROFURAN MAC 100 MG CAPSULE ONE (23:31)
[2017-02-21 00:04] VITALS: BP 138/78
== END 2017-02-20 23:46 | disposition home or self-care (01) ==
LOC: ER 20:50
DX: R10.31 Right lower quadrant pain (principal); G89.29 Other chronic pain; Z86.73 Personal history of transient ischemic attack (TIA), and cerebral infarction without residual deficits; I10 Essential (primary) hypertension; Z87.442 Personal history of urinary calculi; N28.9 Disorder of kidney and ureter, unspecified

== ENCOUNTER 2017-03-15 10:47 | Emergency (ER) | payer MEDICARE, MEDICAID ==
[2017-03-15 11:55] LABS: Urine Appearance Slightly Cloudy; Urine Bacteria 2+; Urine Bilirubin Negative (NEGATIVE); Urine Blood Negative /ul (NEGATIVE); Urine Color Yellow; Urine Ketone 5 mg/dL (NEGATIVE); Urine Nitrite Negative (NEGATIVE); Urine Protein 30 mg/dL (NEGATIVE); Urine RBC 0-5 /hpf (0-5); Urine Specific Gravity >=1.030 SP.GR. (1.005-1.010); Urine Urobilinogen Normal (NORMAL)
--- OUTSIDE RECORDS SUMMARY | 2017-03-15 11:58 | XMS REPORT | Summary of Care ---
:[address] [facility] Address [address] [place] [address]- Care Team Providers Name Role Phone BintacesarDevendraca Debbie Primary Care Physician Encounter Date(s): 11/05/16 - 11/05/[address] [address]- [facility] Discharge Disposition: 01 Discharged to Home or Self Care Attending Physician: LUISANA Silva Vital Signs No data available for this [...] 0 Refill(s), Start Date: 07/26/14 9: 23:00 [employer] Start Date: 07/26/14 Stop Date: 03/19/16 Status: Completedamitriptyline Oral, HS, 0 Refill(s), Start Date: 07/04/16 9:05:00 CDT Start Date: 07/04/16 Status: Orderedatorvastatin 40 mg oral tablet 2 tab(s), Oral, HS, # 60 tab(s), 0 Refill(s), Start Date: 07/26/14 9:22:00 [employer] Start Date: 07/26/14 Stop Date: 06/28/16 Status: Completedatorvastatin 80 mg oral tablet 1 tab(s), Oral, Daily, # 30 tab(s), 0 Refill(s), Start Date: 07/21/14 13:48:00 [employer] Start Date: 07/21/14 Stop Date: 07/26/14 Status: [...] TID, 0 Refill(s), Start Date: 07/21/14 13:48:00 [employer] Start Date: 07/21/14 Stop Date: 07/26/14 Status: Discontinuedenoxaparin 80 mg/0.8 mL injectable solution 80 mg, Subcutaneous, q12hr interval, 0 Refill(s), Start Date: 07/21/14 13:48:00 [employer] Start Date: 07/21/14 Stop Date: 07/26/14 Status: DiscontinuedEstring 2 mg vaginal ring 1 EA, Vaginal, [id number], # 1 EA, 1 Refill(s), Start Date: 07/04/16 11:05:00 CDT , Pharmacy: [place], [place] Start Date: 07/04/16 Status: OrderedFlonase 50 mcg/inh nasal spray 2 spray(s), Nasal, Daily, 0 Refill(s), Start Date: 07/26/14 9:23:00 [employer] Start Date: 07/26/14 Stop Date: 05/28/15 Status: Discontinuedgabapentin 300 mg oral capsule 3 cap(s), Oral, TID, 0 Refill(s), Start Date: 07/26/14 9:22:00 [employer] Start Date: 07/26/14 Stop Date: 05/28/15 Status: Discontinuedgabapentin 300 mg oral capsule 2 cap(s), Oral, TID, 0 Refill(s), Start Date: 07/21/14 13:48:00 [employer] Start Date: 07/21/14 Stop Date: 07/26/14 Status: [...] Daily, 0 Refill(s), Start Date: 07/26/14 9:22:00 [employer] Start Date: 07/26/14 Status: Orderedlisinopril 40 mg oral tablet 1 tab(s), Oral, Daily, # 30 tab(s), 0 Refill(s), Start Date: 07/21/14 13:48:00 [employer] Start Date: 07/21/14 Stop Date: 07/26/14 Status: DiscontinuedMedrol Dosepak 4 mg oral tablet 1 packet(s), Oral, Per Package Label, as directed on package labeling, # 21 tab( s), 0 Refill(s), Start Date: 07/16/16 21:37:00 [employer] Special Instructions: as directed on package labeling [...] BID, 0 Refill(s), Start Date: 07/21/14 13:48:00 [employer] Start Date: 07/21/14 Stop Date: 07/26/14 Status: DiscontinuedNorco 5 mg-325 mg oral tablet 1 tab(s), Oral, q6hr, PRN for pain, X 5 days, # 20 tab(s), 0 Refill(s), Start Date: 07/16/16 21:37:00 [employer] Start Date: 07/16/16 Stop Date: 07/21/16 Status: Completedomeprazole 20 mg, Oral, Daily, 0 Refill(s), Start Date: 05/28/15 17:26:00 CDT Start Date: 05/28/15 Stop Date: 05/30/15 Status: Discontinuedomeprazole 20 mg oral delayed release capsule 2 cap(s), Oral, BID, 0 Refill(s), Start Date: 07/26/14 9:22:00 [employer] Start Date: 07/26/14 Stop Date: 05/28/15 Status: Discontinuedomeprazole 40 mg oral delayed release capsule 1 cap(s), Oral, Daily, Start Date: 05/02/16 13:37:00 CDT Start Date: 05/02/16 Status: Orderedomeprazole 40 mg oral delayed release capsule 1 cap(s), Oral, Daily, # 30 cap(s), 0 Refill(s), Start Date: 07/21/14 13:48:00 [employer] Start Date: 07/21/14 Stop Date: 07/26/14 Status: [...] severe 8-10, 0 Refill(s), Start Date: 13:48:00 [employer] Start Date: 07/21/14 Stop Date: 07/26/14 Status: DiscontinuedPercocet 5/325 1 tab(s), Oral, q6hr interval, PRN pain moderate 4-7, 0 Refill(s), Start Date: 07/21/14 13:48:00 [employer] Start Date: 07/21/14 Stop Date: 05/28/15 Status: [...] Refill(s), Start Date: 07/04/16 15:49:00 CDT, Pharmacy: [facility] Special Instructions: Oral ONETIME Start Date: 07/04/16 Status: Orderedsertraline 100 mg oral tablet 1 tab(s), Oral, Daily, # 30 tab(s), 0 Refill(s), Start Date: 07/21/14 13:48:00 [employer] Start Date: 07/21/14 Stop Date: 07/26/14 Status: Discontinuedsertraline 100 mg oral tablet 1 tab(s), Oral, Daily, 0 Refill(s), Start Date: 07/26/14 9:22:00 [employer] Start Date: 07/26/14 Stop Date: 03/19/16 Status: [...] 0 Refill(s) , Start Date: 11/08/15 6:19:00 [employer] Start Date: 11/08/15 Stop Date: 03/19/16 Status: CompletedtraMADol 50 mg oral tablet 1 tab(s), Oral, q6hr interval, PRN pain mild 1-3, 0 Refill(s), Start Date: 07/26 9:23:00 [employer] Start Date: 07/26/14 Stop Date: 05/28/15 Status: DiscontinuedtraMADol 50 mg oral tablet 1 tab(s), Oral, q6hr interval, PRN pain mild 1-3, 0 Refill(s), Start Date: 07/21 13:48:00 [employer] Start Date: 07/21/14 Stop Date: 07/26/14 Status: [...] tab(s), 0 Refill(s), Start Date: 07/21/14 13:48:00 [employer] Start Date: 07/21/14 Stop Date: 07/26/14 Status: [...] Daily, 0 Refill(s), Start Date: 07/26/14 9:23:00 [employer] Start Date: 07/26/14 Stop Date: 03/29/16 Status: [...] 06/28/16 Stop Date: 07/01/16 Status: Completed Results Patient Viewable Results Most recent to oldest [Reference Range]: 1 2 WBC [4.8-10.8 thou/mm3] 9.8 thou/mm3 (11/05/16:22 AM) RBC [4.20-5.40 Mil/mm3] 4.12 Mil/mm3 *LOW* (11/05/16: AM) Hgb [12.0-16.0 g/dL] 10.4 g/dL *LOW* (11/05/16: AM) Hct [37.0-47.0 %] 34.3 % 34.3 % *LOW* *LOW* (11/05/16:22 AM) (11/05/16:22 AM) MCV [80.0-94.0 fL] 83.3 fL (11/05/16: AM) MCH [25.0-38.0 pg/cell] 25.2 pg/cell (11/05/16: AM) MCHC [31.0-37.0 g/dL] 30.3 g/dL *LOW* (11/05/16: AM) RDW [1.0-48.0 fL] 50.5 fL *HI* (11/05/16:22 AM) Platelet [130-400 thou/mm3] 490 thou/mm3 *HI* (11/05/16: AM) Neutrophils % Auto [50.0-75.0 %] 67.4 % (11/05/16:22 AM) Immature Granulocyte Auto [0.1-2.0 %] 0.5 % (11/05/16:22 AM) Lymphocytes % Auto [15.0-41.0 %] 26.2 % (11/05/16: AM) Monocytes % Auto [2.0-10.0 %] 4.6 % (11/05/16:22 AM) Eosinophils % Auto [0.0-6.0 %] 0.9 % (11/05/16: AM) Basophil % Auto [0.0-1.0 %] 0.4 % (11/05/16: AM) Neutrophils Absolute [1.5-5.9 thou/mm3] 6.6 thou/mm3 *HI* (11/05/16 AM) Immature Gran Absolute [0.01-0.03 thou/mm3] 0.05 thou/mm3 *HI* (11/05/16) Lymphocytes Absolute [1.5-4.0 thou/mm3] 2.6 thou/mm3 (11/05/16 AM) Monocytes Absolute [0.0-0.9 thou/mm3] 0.4 thou/mm3 (11/05/16 AM) Eosinophil Absolute [0.0-0.7 thou/mm3] 0.1 thou/mm3 (11/05/16 AM) Basophil Absolute [0.0-0.2 thou/mm3] 0.0 thou/mm3 (11/05/16 AM) Adjusted Reticulocyte [0.5-1.5 %] 1.8 % *HI* (11/05/16 AM) Sodium Lvl [135-144 mEq/L] 143 mEq/L (11/05/16 AM) Potassium Lvl [3.3-4.8 mEq/L] 3.6 mEq/L (11/05/16 AM) Chloride Lvl [98-107 mEq/L] 103 mEq/L (11/05/16 AM) Bicarbonate Lvl [22-30 mmol/L] 30 mmol/L (11/05/16 AM) Anion Gap [10.0-20.0] 13.6 (11/05/16 AM) Glucose Lvl [70-108 mg/dL] 93 mg/dL (11/05/16 AM) BUN [7-21 mg/dL] 9 mg/dL (11/05/16 AM) Creatinine Lvl [0.50-1.20 mg/dL] 0.68 mg/dL (11/05/16 AM) BUN/Creat Ratio 13.2 *NA* (11/05/16 AM) eGFR AA [>=60] >60 (11/05/16 AM) eGFR CARLENE [>=60] >60 (11/05/16: AM) Calcium Lvl [8.6-10.2 mg/dL] 9.1 mg/dL (11/05/16 AM) Total Protein [6.4-8.3 g/dL] 6.2 g/dL *LOW* (11/05/16) Albumin Lvl [3.5-5.2 g/dL] 3.9 g/dL (11/05/16 AM) Globulin 2.3 *NA* (11/05/16 AM) A/G Ratio [0.9-1.8] 1.7 (11/05/16) Bilirubin Total [0.1-1.0 mg/dL] 0.3 mg/dL (11/05/16 AM) Alkaline Phosphatase [39-129 unit/L] 102 unit/L (11/05/16) AST [0-39 unit/L] 14 unit/L (11/05/16 AM) ALT [0-40 unit/L] 12 unit/L (11/05/16 AM) Cholesterol Total [0-200 mg/dL] 220 mg/dL *HI* (11/05/16 AM) Triglyceride [0-199 mg/dL] 141 mg/dL (11/05/16 AM) HDL Cholesterol [40-100 mg/dL] 60 mg/dL (11/05/16 AM) LDL Cholesterol (Direct) [0-129 mg/dL] 151 mg/dL *HI* (11/05/16 AM) Non HDL Cholesterol [0-159 mg/dL] 160 mg/dL *HI* (11/05/16 AM) FE [50-170 mcg/dL] 29 mcg/dL *LOW* (11/05/16) Iron Binding Capacity, Total [228-428 mcg/dL] 443 mcg/dL *HI* (11/05/16 AM) % Iron Saturation [20-50 %] 7 % *LOW* (3/8/17 11:22 AM) Free T4 [0.89-1.76 ng/dL] 0.95 ng/dL (11/05/16 11:22 AM) TSH [0.50-3.00 mIU/L] 0.73 mIU/L (11/05/16 11:22 AM) Vitamin B12 Lvl [211-911 pg/mL] 229 pg/mL (11/05/16 11:22 AM) Folate Lvl, RBC [280-791 ng/mL] 655 ng/mL (11/05/16 11:22 AM) Ferritin Lvl [10-291 ng/mL] 5 ng/mL *LOW* (11/05/16 11:22 AM) Estimated Creatinine Clearance 86.58 mL/min (11/05/16 11:47 AM) Immunizations Vaccine Date Refusal Reason influenza virus vaccine, inactivated 05/01/16 Procedures Procedure Date Related Diagnosis Body Site Cystoscopy - SN1 04/01/16 Colonoscopy2 05/30/15 Esophagogastroduodenoscopy3 05/29/15 Tonsillectomy 1969 Appendectomy Back4 Cholecystectomy Hysterectomy Septum of nose5 1auto-populated from documented surgical [id number] from documented surgical [id number] from documented surgical [id number] septum repair Social History No data available for this section Assessment and Plan No data available for this section
--- OUTSIDE RECORDS SUMMARY | 2017-03-15 11:58 | XMS REPORT | Summary of Care ---
:1960 Author Organization [facility] Address [address] [place] [address] Care Team Providers Name Role Phone Vibha Cavazos Primary Care Physician Encounter Date(s): 11/17/16 - 11/17/16 [facility] [address] [place] [id number] Discharge Disposition: 01 Discharged to Home or Self Care Attending Physician: Mari Phillips MD Referring Physician: LUISANA Silva Vital Signs Most recent to oldest [Reference Range]: 1 Peripheral Pulse Rate [60-100 bpm] 95 bpm (11/17/16 11:29 AM) SpO2 [90-100 %] 96 % (11/17/16 11:29 AM) SpO2 Location Right hand (11/17/16 11:29 AM) Blood Pressure [90-130/60-90 mmHg] 124/74mmHg (11/17/16 11:29 AM) Mean Arterial Pressure, Cuff 91 mmHg (11/17/16 11:29 AM) Most recent to oldest [Reference Range]: 1 Height/Length Measured 158 cm (11/17/16 11:29 AM) Weight Dosing 67.00 kg1 (11/17/16 11:36 AM) Weight Measured 67 kg (11/17/16 11:29 AM) BSA Measured 1.68 m2 (11/17/16 11:29 AM) Body Mass Index Measured 26.84 kg/m2 (11/17/16 11:29 AM) 1Result Comment: This result was because the dosing weight was either not entered or it is>30 days old. 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 Active Atrial fibrillation(Confirmed) Active Bladder spasm(Confirmed) 10/31/12 Active Cholecystectomy(Confirmed) Active [...] Reactions, Alerts No Known Allergies Medications albuterol 90 mcg/inh inhalation aerosol 2 puff(s), Inhale, q4hr, PRN for wheezing, # 18 gm, 0 Refill(s), Start Date: 06/16 13:31:00 [employer] Start Date: 11/07/16 Status: Orderedalbuterol CFC free 90 mcg/inh inhalation aerosol 2 puff(s), Inhale, QID, PRN cough, # 1 EA, 0 Refill(s), Start Date: 07/26/14 9: 23:00 [employer] Start Date: 07/26/14 Stop Date: 03/19/16 Status: Completedamitriptyline 25 mg, Oral, HS, 0 Refill(s), Start Date: 07/04/16 9:05:00 CDT Start Date: 07/04/16 Stop Date: 11/17/16 Status: Completedatorvastatin 40 mg oral tablet 2 tab(s), Oral, HS, # 60 tab(s), 0 Refill(s), Start Date: 07/26/14 9:22:00 [employer] Start Date: 07/26/14 Stop Date: 06/28/16 Status: Completedatorvastatin 80 mg oral tablet 1 tab(s), Oral, Daily, # 30 tab(s), 0 Refill(s), Start Date: 07/21/14 13:48:00 [employer] Start Date: 07/21/14 Stop Date: 07/26/14 Status: DiscontinuedAugmentin 875 mg-125 mg oral tablet 875 mg, Oral, q12hr interval, # 20 tab(s), 0 Refill(s), Start Date: 11/07/16 13: 34:00 [employer] Start Date: 11/07/16 Stop Date: 11/17/16 Status: CompletedBactrim DS 800 mg-160 mg oral [...] TID, 0 Refill(s), Start Date: 07/21/14 13:48:00 [employer] Start Date: 07/21/14 Stop Date: 07/26/14 Status: Discontinuedenoxaparin 80 mg/0.8 mL injectable solution 80 mg, Subcutaneous, q12hr interval, 0 Refill(s), Start Date: 07/21/14 13:48:00 [employer] Start Date: 07/21/14 Stop Date: 07/26/14 Status: DiscontinuedEstring 2 mg vaginal ring 1 EA, Vaginal, [id number], # 1 EA, 1 Refill(s), Start Date: 07/04/16 11:05:00 CDT , Pharmacy: [place], [place] Start Date: 07/04/16 Status: OrderedFlonase 50 mcg/inh nasal spray 2 spray(s), Nasal, Daily, 0 Refill(s), Start Date: 07/26/14 9:23:00 [employer] Start Date: 07/26/14 Stop Date: 05/28/15 Status: Discontinuedgabapentin 300 mg oral capsule 3 cap(s), Oral, TID, 0 Refill(s), Start Date: 07/26/14 9:22:00 [employer] Start Date: 07/26/14 Stop Date: 05/28/15 Status: Discontinuedgabapentin 300 mg oral capsule 2 cap(s), Oral, TID, 0 Refill(s), Start Date: 07/21/14 13:48:00 [employer] Start Date: 07/21/14 Stop Date: 07/26/14 Status: Discontinuedgabapentin 300 mg oral capsule 1 cap(s), Oral, TID, # 90 cap(s), 0 Refill(s), Start Date: 11/07/16 13:32:00 [employer] Start Date: 11/07/16 Status: Orderedgabapentin 400 mg oral capsule 1 cap(s), Oral, [...] Start Date: 05/02/16 Stop Date: 05/28/16 Status: CompletedLipitor 80 mg oral tablet 1 tab(s), Oral, Daily, # 30 tab(s), 0 Refill(s), Start Date: 11/07/16 13:32:00 [employer] Start Date: 11/07/16 Status: Orderedlisinopril 20, Oral, Daily, 0 Refill(s) Start Date: 05/04/14 Stop Date: 07/21/14 Status: Completedlisinopril 20 mg oral tablet 2 tab(s), Oral, Daily, 0 Refill(s), Start Date: 07/26/14 9:22:00 [employer] Start Date: 07/26/14 Stop Date: 11/07/16 Status: Discontinuedlisinopril 40 mg oral tablet 1 tab(s), Oral, Daily, # 30 tab(s), 0 Refill(s), Start Date: 07/21/14 13:48:00 [employer] Start Date: 07/21/14 Stop Date: 07/26/14 Status: Discontinuedlisinopril 40 mg oral tablet 1 tab(s), Oral, Daily, # 30 tab(s), 0 Refill(s), Start Date: 11/07/16 13:33:00 [employer] Start Date: 11/07/16 Status: OrderedMedrol Dosepak 4 mg oral tablet 1 packet(s), Oral, Per Package Label, as directed on package labeling, # 21 tab( s), 0 Refill(s), Start Date: 07/16/16 21:37:00 [employer] Special Instructions: as directed on package labeling Start Date: 07/16/16 Stop Date: 11/17/16 Status: Completedmeloxicam 15 mg oral tablet 1 tab(s), Oral, Daily, # 30 tab(s), 0 Refill(s), Start Date: 11/07/16 13:33:00 [employer] Start Date: 11/07/16 Status: OrderedmetroNIDAZOLE 500 mg oral tablet 1 [...] BID, 0 Refill(s), Start Date: 07/21/14 13:48:00 [employer] Start Date: 07/21/14 Stop Date: 07/26/14 Status: DiscontinuedNorco 5 mg-325 mg oral tablet 1 tab(s), Oral, q6hr, PRN for pain, X 5 days, # 20 tab(s), 0 Refill(s), Start Date: 11/17/16 15:33:00 CDT Start Date: 11/17/16 Stop Date: 11/22/16 Status: OrderedNorco 5 mg-325 mg oral tablet 1 tab(s), Oral, q6hr, PRN for pain, X 5 days, # 20 tab(s), 0 Refill(s), Start Date: 07/16/16 21:37:00 [employer] Start Date: 07/16/16 Stop Date: 07/21/16 Status: Completedomeprazole 20 mg, Oral, Daily, 0 Refill(s), Start Date: 05/28/15 17:26:00 CDT Start Date: 05/28/15 Stop Date: 05/30/15 Status: Discontinuedomeprazole 20 mg oral delayed release capsule 2 cap(s), Oral, BID, 0 Refill(s), Start Date: 07/26/14 9:22:00 [employer] Start Date: 07/26/14 Stop Date: 05/28/15 Status: Discontinuedomeprazole 40 mg oral delayed release capsule 1 cap(s), Oral, Daily, Start Date: 05/02/16 13:37:00 CDT Start Date: 05/02/16 Stop Date: 11/07/16 Status: Discontinuedomeprazole 40 mg oral delayed release capsule 1 cap(s), Oral, Daily, before a meal, # 30 cap(s), 0 Refill(s), Start Date: 06/16 13:33:00 [employer] Special Instructions: before a meal Start Date: 11/07/16 Status: Orderedomeprazole 40 mg oral delayed release capsule 1 cap(s), Oral, Daily, # 30 cap(s), 0 Refill(s), Start Date: 07/21/14 13:48:00 [employer] Start Date: 07/21/14 Stop Date: 07/26/14 Status: [...] severe 8-10, 0 Refill(s), Start Date: 13:48:00 [employer] Start Date: 07/21/14 Stop Date: 07/26/14 Status: DiscontinuedPercocet 5/325 1 tab(s), Oral, q6hr interval, PRN pain moderate 4-7, 0 Refill(s), Start Date: 07/21/14 13:48:00 [employer] Start Date: 07/21/14 Stop Date: 05/28/15 Status: [...] Refill(s), Start Date: 07/04/16 15:49:00 CDT, Pharmacy: [facility] Special Instructions: Oral ONETIME Start Date: 07/04/16 Stop Date: 11/17/16 Status: Completedsertraline 100 mg oral tablet 1 tab(s), Oral, Daily, # 30 tab(s), 0 Refill(s), Start Date: 07/21/14 13:48:00 [employer] Start Date: 07/21/14 Stop Date: 07/26/14 Status: Discontinuedsertraline 100 mg oral tablet 1 tab(s), Oral, Daily, 0 Refill(s), Start Date: 07/26/14 9:22:00 [employer] Start Date: 07/26/14 Stop Date: 03/19/16 Status: [...] 0 Refill(s) , Start Date: 11/08/15 6:19:00 [employer] Start Date: 11/08/15 Stop Date: 03/19/16 Status: CompletedtraMADol 50 mg oral tablet 1 tab(s), Oral, q6hr interval, PRN pain mild 1-3, 0 Refill(s), Start Date: 07/26 9:23:00 [employer] Start Date: 07/26/14 Stop Date: 05/28/15 Status: DiscontinuedtraMADol 50 mg oral tablet 1 tab(s), Oral, q6hr interval, PRN pain mild 1-3, 0 Refill(s), Start Date: 07/21 13:48:00 [employer] Start Date: 07/21/14 Stop Date: 07/26/14 Status: Discontinuedwarfarin 10 mg oral tablet 1 tab(s), Oral, Daily, # 30 tab(s), 0 Refill(s), Start Date: 11/17/16 13:26:00 CDT Start Date: 11/17/16 Status: Orderedwarfarin 2 mg oral tablet 4.5 tab(s), Oral, Every other day, # 30 tab(s), 0 Refill(s), Start Date: 17:06:00 CDT Start Date: 06/28/16 Stop Date: 11/17/16 Status: Completedwarfarin 2 mg oral tablet 4 tab(s), Oral, Every other day, # 30 tab(s), 0 Refill(s), Start Date: 06/28/16 17:05:00 CDT Start Date: 06/28/16 Stop Date: 11/17/16 Status: Completedwarfarin 4 mg oral tablet 2 tab(s), Oral, Daily, # 30 tab(s), 0 Refill(s), Start Date: 05/28/16 16:26:00 CDT Start Date: 05/28/16 Stop Date: 06/28/16 Status: Completedwarfarin 5 mg oral tablet 1 tab(s), Oral, Daily, # 30 tab(s), 0 Refill(s), Start Date: 07/21/14 13:48:00 [employer] Start Date: 07/21/14 Stop Date: 07/26/14 Status: Discontinuedwarfarin 5 mg oral tablet 1 tab(s), Oral, ONETIME, 0 Refill(s), Start Date: 07/01/16 13:15:00 CDT Start Date: 07/01/16 Stop Date: 11/17/16 Status: Completedwarfarin 5 mg oral tablet 1 [...] Daily, 0 Refill(s), Start Date: 07/26/14 9:23:00 [employer] Start Date: 07/26/14 Stop Date: 03/29/16 Status: [...] Septum of nose5 1auto-populated from documented surgical [id number] from documented surgical [id number] from documented surgical [id number] septum repair Social History No data available for this section Assessment and Plan No data available for this section
[2017-03-15] MEDS ORDERED: diphenhydrAMINE HCL 50 MG/ML VIAL IV ONE (11:59)
[2017-03-15] MEDS ORDERED: METOCLOPRAMIDE HCL 5 MG/ML VIAL IV ONE (11:59)
--- OUTSIDE RECORDS SUMMARY | 2017-03-15 11:59 | XMS REPORT | Summary of Care ---
:1960 Author Organization [facility] Care Team Providers Name Role Phone Vibha Cavazos Primary Care Physician Encounter Date(s): 01/07/17 - 01/07/17 [facility] [address] [place], [place] [address] Discharge Diagnosis: Acute headache Discharge Diagnosis: Acute UTI (urinary tract infection) Discharge Disposition: 01 Discharged to Home or Self Care Attending Physician: LUISANA Jung Admitting Physician: LUISANA Jung Vital Signs Most recent to oldest 1 2 3 [Reference Range]: Temperature Temporal Artery 36.7 DegC [36.0-38.0 DegC] (01/07/17 1:15 PM) Heart Rate Monitored [60-100 82 bpm 84 bpm 83 bpm bpm] (01/07/17 3:38 PM) (01/07/17 2:45 PM) (01/07/17 2:30 PM) Respiratory Rate [12-20 br/min] 20 br/min 15 br/min 16 br/min (01/07/17 3:38 PM) (01/07/17 2:45 PM) (01/07/17 2:30 PM) SpO2 [90-100 %] 94 % 97 % 89 % (01/07/17 3:38 PM) (01/07/17 2:45 PM) *LOW* (01/07/17 2:30 PM) Blood Pressure [90-130/60-90 119/61mmHg 126/72mmHg 126/72mmHg mmHg] (01/07/17 3:38 PM) (01/07/17 2:45 PM) (01/07/17 2:30 PM) Mean Arterial Pressure Monitor 74 mmHg 86 mmHg 86 mmHg Measure (01/07/17 3:38 PM) (01/07/17 2:45 PM) (01/07/17 2:30 PM) Most recent to oldest [Reference Range]: 1 2 3 Weight Estimated 63.63 kg (01/07/17 1:15 PM) Weight Dosing 63.63 kg1 (01/07/17 1:21 PM) 1Result Comment: This result was because the dosing weight was either not entered or it is>30 days old. This result is based off: Weight Estimated January 07, 2017 13:15:00 CDT by Armida Conley RN Problem List Condition Effective Dates Status [...] gm, 0 Refill(s), Start Date: 06/16 13:31:00 MAINTENANCE TECHNICIAN 3RD SHIFT Start Date: 11/07/16 Status: Orderedalbuterol CFC free 90 mcg/inh inhalation aerosol 2 puff(s), Inhale, QID, PRN cough, # 1 EA, 0 Refill(s), Start Date: 07/26/14 9: 23:00 MAINTENANCE TECHNICIAN 3RD SHIFT Start Date: 07/26/14 Stop Date: 03/19/16 Status: Completedamitriptyline 25 mg, Oral, HS, 0 Refill(s), Start Date: 07/04/16 9:05:00 CDT Start Date: 07/04/16 Stop Date: 11/17/16 Status: CompletedamLODIPine 5 mg oral tablet 1 tab(s), Oral, Daily, Start Date: 01/07/17 14:32:00 CDT Start Date: 01/07/17 Status: Orderedatorvastatin 40 mg oral tablet 2 tab(s), Oral, HS, # 60 tab(s), 0 Refill(s), Start Date: 07/26/14 9:22:00 MAINTENANCE TECHNICIAN 3RD SHIFT Start Date: 07/26/14 Stop Date: 06/28/16 Status: Completedatorvastatin 80 mg oral tablet 1 tab(s), Oral, Daily, # 30 tab(s), 0 Refill(s), Start Date: 07/21/14 13:48:00 MAINTENANCE TECHNICIAN 3RD SHIFT Start Date: 07/21/14 Stop Date: 07/26/14 Status: DiscontinuedAugmentin 875 mg-125 mg oral tablet 875 mg, Oral, q12hr interval, # 20 tab(s), 0 Refill(s), Start Date: 11/07/16 13: 34:00 MAINTENANCE TECHNICIAN 3RD SHIFT Start Date: 11/07/16 Stop Date: 11/17/16 Status: [...] Start Date: 04/02/16 Stop Date: 05/02/16 Status: CompletedCipro 500 mg oral tablet 1 tab(s), Oral, q12hr, X 5 days, # 10 tab(s), 0 Refill(s), Start Date: 01/07/17 15:14:00 CDT Start Date: 01/07/17 Stop Date: 01/12/17 Status: OrderedcloNIDine 0.1 mg oral tablet 1 tab(s), Oral, TID, 0 Refill(s), Start Date: 07/21/14 13:48:00 MAINTENANCE TECHNICIAN 3RD SHIFT Start Date: 07/21/14 Stop Date: 07/26/14 Status: Discontinuedenoxaparin 80 mg/0.8 mL injectable solution 80 mg, Subcutaneous, q12hr interval, 0 Refill(s), Start Date: 07/21/14 13:48:00 MAINTENANCE TECHNICIAN 3RD SHIFT Start Date: 07/21/14 Stop Date: 07/26/14 Status: DiscontinuedEstring 2 mg vaginal ring 1 EA, Vaginal, [id number], # 1 EA, 1 Refill(s), Start Date: 07/04/16 11:05:00 CDT , Pharmacy: [place], [place] Start Date: 07/04/16 Status: OrderedFlonase 50 mcg/inh nasal spray 2 spray(s), Nasal, Daily, 0 Refill(s), Start Date: 07/26/14 9:23:00 MAINTENANCE TECHNICIAN 3RD SHIFT Start Date: 07/26/14 Stop Date: 05/28/15 Status: Discontinuedgabapentin 300 mg oral capsule 3 cap(s), Oral, TID, 0 Refill(s), Start Date: 07/26/14 9:22:00 MAINTENANCE TECHNICIAN 3RD SHIFT Start Date: 07/26/14 Stop Date: 05/28/15 Status: Discontinuedgabapentin 300 mg oral capsule 2 cap(s), Oral, TID, 0 Refill(s), Start Date: 07/21/14 13:48:00 MAINTENANCE TECHNICIAN 3RD SHIFT Start Date: 07/21/14 Stop Date: 07/26/14 Status: Discontinuedgabapentin 300 mg oral capsule 1 cap(s), Oral, TID, # 90 cap(s), 0 Refill(s), Start Date: 11/07/16 13:32:00 MAINTENANCE TECHNICIAN 3RD SHIFT Start Date: 11/07/16 Status: Orderedgabapentin 400 mg [...] tab(s), 0 Refill(s), Start Date: 11/07/16 13:32:00 MAINTENANCE TECHNICIAN 3RD SHIFT Start Date: 11/07/16 Status: Orderedlisinopril 20, Oral, Daily, 0 Refill(s) Start Date: 05/04/14 Stop Date: 07/21/14 Status: Completedlisinopril 20 mg oral tablet 2 tab(s), Oral, Daily, 0 Refill(s), Start Date: 07/26/14 9:22:00 MAINTENANCE TECHNICIAN 3RD SHIFT Start Date: 07/26/14 Stop Date: 11/07/16 Status: Discontinuedlisinopril 40 mg oral tablet 1 tab(s), Oral, Daily, # 30 tab(s), 0 Refill(s), Start Date: 07/21/14 13:48:00 MAINTENANCE TECHNICIAN 3RD SHIFT Start Date: 07/21/14 Stop Date: 07/26/14 Status: Discontinuedlisinopril 40 mg oral tablet 1 tab(s), Oral, Daily, # 30 tab(s), 0 Refill(s), Start Date: 11/07/16 13:33:00 MAINTENANCE TECHNICIAN 3RD SHIFT Start Date: 11/07/16 Status: OrderedMedrol Dosepak 4 mg oral tablet 1 packet(s), Oral, Per Package Label, as directed on package labeling, # 21 tab( s), 0 Refill(s), Start Date: 07/16/16 21:37:00 MAINTENANCE TECHNICIAN 3RD SHIFT Special Instructions: as directed on package labeling Start Date: 07/16/16 Stop Date: 11/17/16 Status: Completedmeloxicam 15 mg oral tablet 1 tab(s), Oral, Daily, # 30 tab(s), 0 Refill(s), Start Date: 11/07/16 13:33:00 MAINTENANCE TECHNICIAN 3RD SHIFT Start Date: 11/07/16 Stop Date: 01/07/17 Status: CompletedmetroNIDAZOLE 500 mg oral tablet 1 tab(s), Oral, [...] BID, 0 Refill(s), Start Date: 07/21/14 13:48:00 MAINTENANCE TECHNICIAN 3RD SHIFT Start Date: 07/21/14 Stop Date: 07/26/14 Status: DiscontinuedNorco 5 mg-325 mg oral tablet 1 tab(s), Oral, q6hr, PRN for pain, X 5 days, # 20 tab(s), 0 Refill(s), Start Date: 11/17/16 15:33:00 CDT Start Date: 11/17/16 Stop Date: 11/22/16 Status: CompletedNorco 5 mg-325 mg oral tablet 1 tab(s), Oral, q6hr, PRN for pain, X 5 days, # 20 tab(s), 0 Refill(s), Start Date: 07/16/16 21:37:00 MAINTENANCE TECHNICIAN 3RD SHIFT Start Date: 07/16/16 Stop Date: 07/21/16 Status: Completedomeprazole 20 mg, Oral, Daily, 0 Refill(s), Start Date: 05/28/15 17:26:00 CDT Start Date: 05/28/15 Stop Date: 05/30/15 Status: Discontinuedomeprazole 20 mg oral delayed release capsule 2 cap(s), Oral, BID, 0 Refill(s), Start Date: 07/26/14 9:22:00 MAINTENANCE TECHNICIAN 3RD SHIFT Start Date: 07/26/14 Stop Date: 05/28/15 Status: Discontinuedomeprazole 40 mg oral delayed release capsule 1 cap(s), Oral, Daily, Start Date: 05/02/16 13:37:00 CDT Start Date: 05/02/16 Stop Date: 11/07/16 Status: Discontinuedomeprazole 40 mg oral delayed release capsule 1 cap(s), Oral, Daily, before a meal, # 30 cap(s), 0 Refill(s), Start Date: 06/16 13:33:00 MAINTENANCE TECHNICIAN 3RD SHIFT Special Instructions: before a meal Start Date: 11/07/16 Status: Orderedomeprazole 40 mg oral delayed release capsule 1 cap(s), Oral, Daily, # 30 cap(s), 0 Refill(s), Start Date: 07/21/14 13:48:00 MAINTENANCE TECHNICIAN 3RD SHIFT Start Date: 07/21/14 Stop Date: 07/26/14 Status: [...] severe 8-10, 0 Refill(s), Start Date: 13:48:00 MAINTENANCE TECHNICIAN 3RD SHIFT Start Date: 07/21/14 Stop Date: 07/26/14 Status: DiscontinuedPercocet 5/325 1 tab(s), Oral, q6hr interval, PRN pain moderate 4-7, 0 Refill(s), Start Date: 07/21/14 13:48:00 MAINTENANCE TECHNICIAN 3RD SHIFT Start Date: 07/21/14 Stop Date: 05/28/15 Status: [...] Refill(s), Start Date: 07/04/16 15:49:00 CDT, Pharmacy: [facility] Special Instructions: Oral ONETIME Start Date: 07/04/16 Stop Date: 11/17/16 Status: Completedsertraline 100 mg oral tablet 1 tab(s), Oral, Daily, # 30 tab(s), 0 Refill(s), Start Date: 07/21/14 13:48:00 MAINTENANCE TECHNICIAN 3RD SHIFT Start Date: 07/21/14 Stop Date: 07/26/14 Status: Discontinuedsertraline 100 mg oral tablet 1 tab(s), Oral, Daily, 0 Refill(s), Start Date: 07/26/14 9:22:00 MAINTENANCE TECHNICIAN 3RD SHIFT Start Date: 07/26/14 Stop Date: 03/19/16 Status: [...] 0 Refill(s) , Start Date: 11/08/15 6:19:00 MAINTENANCE TECHNICIAN 3RD SHIFT Start Date: 11/08/15 Stop Date: 03/19/16 Status: CompletedtraMADol 50 mg oral tablet 1 tab(s), Oral, q6hr interval, PRN pain mild 1-3, 0 Refill(s), Start Date: 07/26 9:23:00 MAINTENANCE TECHNICIAN 3RD SHIFT Start Date: 07/26/14 Stop Date: 05/28/15 Status: DiscontinuedtraMADol 50 mg oral tablet 1 tab(s), Oral, q6hr interval, PRN pain mild 1-3, 0 Refill(s), Start Date: 07/21 13:48:00 MAINTENANCE TECHNICIAN 3RD SHIFT Start Date: 07/21/14 Stop Date: 07/26/14 Status: Discontinuedwarfarin 10 mg oral tablet 1 tab(s), Oral, Daily, # 30 tab(s), 0 Refill(s), Start Date: 11/17/16 13:26:00 CDT Start Date: 11/17/16 Stop Date: 01/07/17 Status: Completedwarfarin 2 mg oral tablet 4.5 tab(s), Oral, [...] tab(s), 0 Refill(s), Start Date: 07/21/14 13:48:00 MAINTENANCE TECHNICIAN 3RD SHIFT Start Date: 07/21/14 Stop Date: 07/26/14 Status: [...] Daily, 0 Refill(s), Start Date: 07/26/14 9:23:00 MAINTENANCE TECHNICIAN 3RD SHIFT Start Date: 07/26/14 Stop Date: 03/29/16 Status: Completedwarfarin 7.5 mg oral tablet 1 tab(s), Oral, Daily, # 30 tab(s), 0 Refill(s), Start Date: 03/29/16 15:58:00 CDT Start Date: 03/29/16 Stop Date: 04/02/16 Status: DiscontinuedXarelto 20 mg oral tablet 1 tab(s), Oral, qPM, Start Date: 01/07/17 14:32:00 CDT Start Date: 01/07/17 Status: OrderedZofran ODT 4 mg oral tablet, disintegrating 1 [...] 1 2 WBC [4.8-10.8 thou/mm3] 9.8 thou/mm3 (01/07/17 2:02 PM) RBC [4.20-5.40 Mil/mm3] 4.45 Mil/mm3 (01/07/17 2:02 PM) Hgb [12.0-16.0 g/dL] 11.1 g/dL *LOW* (01/07/17 2:02 PM) Hct [37.0-47.0 %] 36.7 % *LOW* (01/07/17 2:02 PM) MCV [80.0-94.0 fL] 82.5 fL (01/07/17 2:02 PM) MCH [25.0-38.0 pg/cell] 24.9 pg/cell *LOW* (01/07/17 2:02 PM) MCHC [31.0-37.0 g/dL] 30.2 g/dL *LOW* (01/07/17 2:02 PM) RDW [1.0-48.0 fL] 49.9 fL *HI* (01/07/17 2:02 PM) Platelet [130-400 thou/mm3] 399 thou/mm3 (01/07/17 2:02 PM) Neutrophils % Auto [50.0-75.0 %] 60.3 % (01/07/17 2:02 PM) Immature Granulocyte Auto [0.1-2.0 %] 0.2 % (01/07/17 2:02 PM) Lymphocytes % Auto [15.0-41.0 %] 33.1 % (01/07/17 2:02 PM) Monocytes % Auto [2.0-10.0 %] 5.5 % (01/07/17 2:02 PM) Eosinophils % Auto [0.0-6.0 %] 0.5 % (01/07/17 2:02 PM) Basophil % Auto [0.0-1.0 %] 0.4 % (01/07/17 2:02 PM) Neutrophils Absolute [1.5-5.9 thou/mm3] 5.9 thou/mm3 (01/07/17 2:02 PM) Immature Gran Absolute [0.01-0.03 thou/mm3] 0.02 thou/mm3 (01/07/17 2:02 PM) Lymphocytes Absolute [1.5-4.0 thou/mm3] 3.2 thou/mm3 (01/07/17 2:02 PM) Monocytes Absolute [0.0-0.9 thou/mm3] 0.5 thou/mm3 (01/07/17 2:02 PM) Eosinophil Absolute [0.0-0.7 thou/mm3] 0.0 thou/mm3 (01/07/17 2:02 PM) Basophil Absolute [0.0-0.2 thou/mm3] 0.0 thou/mm3 (01/07/17 2:02 PM) Sodium Lvl [135-144 mEq/L] 141 mEq/L (01/07/17 2:02 PM) Potassium Lvl [3.3-4.8 mEq/L] 3.8 mEq/L (01/07/17 2:02 PM) Chloride Lvl [98-107 mEq/L] 100 mEq/L (01/07/17 2:02 PM) Bicarbonate Lvl [22-30 mmol/L] 26 mmol/L (01/07/17 2:02 PM) Anion Gap [10.0-20.0] 18.8 (01/07/17 2:02 PM) Glucose Lvl [70-108 mg/dL] 116 mg/dL *HI* (01/07/17 2:02 PM) BUN [7-21 mg/dL] 15 mg/dL (01/07/17 2:02 PM) Creatinine Lvl [0.50-1.20 mg/dL] 0.76 mg/dL (01/07/17 2:02 PM) BUN/Creat Ratio 19.7 *NA* (01/07/17 2:02 PM) eGFR AA [>=60] >60 (01/07/17 2:02 PM) eGFR CARLENE [>=60] >60 (01/07/17:02 PM) Calcium Lvl [8.6-10.2 mg/dL] 9.4 mg/dL (01/07/17 2:02 PM) Total Protein [6.4-8.3 g/dL] 7.3 g/dL (01/07/17 2:02 PM) Albumin Lvl [3.5-5.2 g/dL] 4.4 g/dL (01/07/17 2:02 PM) Globulin 2.9 *NA* (01/07/17 2:02 PM) A/G Ratio [0.9-1.8] 1.5 (01/07/17 2:02 PM) Bilirubin Total [0.1-1.0 mg/dL] 0.5 mg/dL (01/07/17 2:02 PM) Alkaline Phosphatase [39-129 unit/L] 83 unit/L (01/07/17 2:02 PM) AST [0-39 unit/L] 17 unit/L (01/07/17 2:02 PM) ALT [0-40 unit/L] 13 unit/L (01/07/17 2:02 PM) Lipase Lvl [13-60 unit/L] 26 unit/L (01/07/17 2:02 PM) Myoglobin [0-74 ng/mL] 27 ng/mL (01/07/17 2:02 PM) Troponin-I [0.00-0.04 ng/mL] <0.01 ng/mL (01/07/17 2:02 PM) Estimated Creatinine Clearance 72.80 mL/min 62.87 mL/min (01/07/17 2:28 PM) (01/07/17 1:21 PM) UA Color Amber1 *NA* (01/07/17 2:04 PM) Urine Clarity Hazy *NA* (01/07/17 2:04 PM) Specific [place] [1.000-1.060] 1.031 (01/07/17 2:04 PM) Urine pH [5-8] 5 (01/07/17 2:04 PM) Ketones 1+ *ABN* (01/07/17 2:04 PM) Bilirubin [Negative] 1+ *ABN* (01/07/17 2:04 PM) Urine Protein [Negative] 1+ *ABN* (01/07/17 2:04 PM) Glucose [Negative] 1+ *ABN* (01/07/17 2:04 PM) Urine HGB [Negative] Negative (01/07/17 2:04 PM) Urobilinogen <2.0 *NA* (01/07/17 2:04 PM) Nitrite [Negative] Negative (01/07/17 2:04 PM) Leuk Esterase [Negative] 1+ *ABN* (01/07/17 2:04 PM) UA Ascorbic Acid [Negative] Negative (01/07/17 2:04 PM) Urine WBC [0-5] 11-20 *ABN* (01/07/17 2:04 PM) Urine RBC [0-2] 0-2 (01/07/17 2:04 PM) Squamous Epi [0-5] 0-5 (01/07/17 2:04 PM) Bacteria 1+ *ABN* (01/07/17 2:04 PM) Mucus 4+ *ABN* (01/07/17 2:04 PM) Calcium Oxalate Crystals 3+ *ABN* (01/07/17 2:04 PM) Hyaline Casts 3-5 *ABN* (01/07/17 2:04 PM) 1Result Comment: Highly pigmented urine may cause false chemical test results. Immunizations Vaccine Date Refusal Reason influenza virus vaccine, inactivated 05/01/16 Procedures Procedure Date Related Diagnosis Body Site Cystoscopy - SN1 04/01/16 Colonoscopy2 05/30/15 Esophagogastroduodenoscopy3 05/29/15 Tonsillectomy 1969 Appendectomy Back4 Cholecystectomy Hysterectomy Septum of nose5 1auto-populated from documented surgical [id number] from documented surgical [id number] from documented surgical [id number] septum repair Social History No data available for this section Assessment and Plan No data available for this section
--- OUTSIDE RECORDS SUMMARY | 2017-03-15 12:00 | XMS REPORT | Summary of Care ---
:1960 Author Organization [facility] Address [address] [place] [address]- Care Team Providers Name Role Phone BintacesarDevendraca Debbie Primary Care Physician Encounter Date(s): 11/17/16 - 11/17/16 [facility] [address] [place] [address]- [facility] Discharge Diagnosis: Anterior chest wall pain Discharge Disposition: 01 Discharged to Home or Self Care Attending Physician: MATILDE Dotson Admitting Physician: MATILDE Dotson Vital Signs Most recent to oldest 1 2 3 [Reference Range]: Temperature Temporal Artery 36.5 DegC 36.4 DegC [36.0-38.0 DegC] (11/17/16 3:55 PM) (11/17/16 11:52 AM) Heart Rate Monitored [60-100 92 bpm 95 bpm 99 bpm bpm] (11/17/16 3:55 PM) (11/17/16 3:30 PM) (11/17/16 2:45 PM) Respiratory Rate [12-20 20 br/min 18 br/min 18 br/min br/min] (11/17/16 3:55 PM) (11/17/16 3:30 PM) (11/17/16 2:45 PM) SpO2 [90-100 %] 98 % 97 % 94 % (11/17/16 3:55 PM) (11/17/16 3:30 PM) (11/17/16 2:45 PM) Blood Pressure [90-130/60-90 104/68mmHg 107/62mmHg 117/67mmHg mmHg] (11/17/16 3:55 PM) (11/17/16 2:45 PM) (11/17/16 2:30 PM) Mean Arterial Pressure Monitor 73 mmHg 78 mmHg 77 mmHg Measure (11/17/16 2:45 PM) (11/17/16 2:30 PM) (11/17/16 2:15 PM) Most recent to oldest [Reference Range]: 1 2 3 Weight Estimated 65.77 kg (11/17/16 11:52 AM) Weight Dosing 65.77 kg1 (11/17/16 11:54 AM) 1Result Comment: This result was because the dosing weight was either not entered or it is>30 days old. This result is based off: Weight Estimated November 17, 2016 11:52:00 CDT by Susan Gross RN Problem List Condition Effective Dates Status [...] gm, 0 Refill(s), Start Date: 06/16 13:31:00 [employer]IST Start Date: 11/07/16 Status: Orderedalbuterol CFC free 90 mcg/inh inhalation aerosol 2 puff(s), Inhale, QID, PRN cough, # 1 EA, 0 Refill(s), Start Date: 07/26/14 9: 23:00 [employer]PERATIONS SPECIALIST Start Date: 07/26/14 Stop Date: 03/19/16 Status: Completedamitriptyline 25 mg, Oral, HS, 0 Refill(s), Start Date: 07/04/16 9:05:00 CDT Start Date: 07/04/16 Stop Date: 11/17/16 Status: Completedatorvastatin 40 mg oral tablet 2 tab(s), Oral, HS, # 60 tab(s), 0 Refill(s), Start Date: 07/26/14 9:22:00 AD [employer]PERATIONS SPECIALIST Start Date: 07/26/14 Stop Date: 06/28/16 Status: Completedatorvastatin 80 mg oral tablet 1 tab(s), Oral, Daily, # 30 tab(s), 0 Refill(s), Start Date: 07/21/14 13:48:00 AD OPERATIONS SPECIALIST Start Date: 07/21/14 Stop Date: 07/26/14 Status: DiscontinuedAugmentin 875 mg-125 mg oral tablet 875 mg, Oral, q12hr interval, # 20 tab(s), 0 Refill(s), Start Date: 11/07/16 13: 34:00 AD OPERATIONS SPECIALIST Start Date: 11/07/16 Stop Date: 11/17/16 Status: [...] TID, 0 Refill(s), Start Date: 07/21/14 13:48:00 AD OPERATIONS SPECIALIST Start Date: 07/21/14 Stop Date: 07/26/14 Status: Discontinuedenoxaparin 80 mg/0.8 mL injectable solution 80 mg, Subcutaneous, q12hr interval, 0 Refill(s), Start Date: 07/21/14 13:48:00 AD OPERATIONS SPECIALIST Start Date: 07/21/14 Stop Date: 07/26/14 Status: DiscontinuedEstring 2 mg vaginal ring 1 EA, Vaginal, [id number], # 1 EA, 1 Refill(s), Start Date: 07/04/16 11:05:00 CDT , Pharmacy: [place], [place] Start Date: 07/04/16 Status: OrderedFlonase 50 mcg/inh nasal spray 2 spray(s), Nasal, Daily, 0 Refill(s), Start Date: 07/26/14 9:23:00 AD [employer]PERATIONS SPECIALIST Start Date: 07/26/14 Stop Date: 05/28/15 Status: Discontinuedgabapentin 300 mg oral capsule 3 cap(s), Oral, TID, 0 Refill(s), Start Date: 07/26/14 9:22:00 AD OPERATIONS SPECIALIST Start Date: 07/26/14 Stop Date: 05/28/15 Status: Discontinuedgabapentin 300 mg oral capsule 2 cap(s), Oral, TID, 0 Refill(s), Start Date: 07/21/14 13:48:00 AD OPERATIONS SPECIALIST Start Date: 07/21/14 Stop Date: 07/26/14 Status: Discontinuedgabapentin 300 mg oral capsule 1 cap(s), Oral, TID, # 90 cap(s), 0 Refill(s), Start Date: 11/07/16 13:32:00 AD OPERATIONS SPECIALIST Start Date: 11/07/16 Status: Orderedgabapentin 400 mg [...] tab(s), 0 Refill(s), Start Date: 11/07/16 13:32:00 AD OPERATIONS SPECIALIST Start Date: 11/07/16 Status: Orderedlisinopril 20, Oral, Daily, 0 Refill(s) Start Date: 05/04/14 Stop Date: 07/21/14 Status: Completedlisinopril 20 mg oral tablet 2 tab(s), Oral, Daily, 0 Refill(s), Start Date: 07/26/14 9:22:00 AD OPERATIONS SPECIALIST Start Date: 07/26/14 Stop Date: 11/07/16 Status: Discontinuedlisinopril 40 mg oral tablet 1 tab(s), Oral, Daily, # 30 tab(s), 0 Refill(s), Start Date: 07/21/14 13:48:00 AD OPERATIONS SPECIALIST Start Date: 07/21/14 Stop Date: 07/26/14 Status: Discontinuedlisinopril 40 mg oral tablet 1 tab(s), Oral, Daily, # 30 tab(s), 0 Refill(s), Start Date: 11/07/16 13:33:00 AD OPERATIONS SPECIALIST Start Date: 11/07/16 Status: OrderedMedrol Dosepak 4 mg oral tablet 1 packet(s), Oral, Per Package Label, as directed on package labeling, # 21 tab( s), 0 Refill(s), Start Date: 07/16/16 21:37:00 AD OPERATIONS SPECIALIST Special Instructions: as directed on package labeling Start Date: 07/16/16 Stop Date: 11/17/16 Status: Completedmeloxicam 15 mg oral tablet 1 tab(s), Oral, Daily, # 30 tab(s), 0 Refill(s), Start Date: 11/07/16 13:33:00 AD OPERATIONS SPECIALIST Start Date: 11/07/16 Status: OrderedmetroNIDAZOLE 500 mg [...] BID, 0 Refill(s), Start Date: 07/21/14 13:48:00 AD OPERATIONS SPECIALIST Start Date: 07/21/14 Stop Date: 07/26/14 [...] tab(s), 0 Refill(s), Start Date: 07/16/16 21:37:00 AD OPERATIONS SPECIALIST Start Date: 07/16/16 Stop Date: 07/21/16 Status: Completedomeprazole 20 mg, Oral, Daily, 0 Refill(s), Start Date: 05/28/15 17:26:00 CDT Start Date: 05/28/15 Stop Date: 05/30/15 Status: Discontinuedomeprazole 20 mg oral delayed release capsule 2 cap(s), Oral, BID, 0 Refill(s), Start Date: 07/26/14 9:22:00 AD OPERATIONS SPECIALIST Start Date: 07/26/14 Stop Date: 05/28/15 Status: Discontinuedomeprazole 40 mg oral delayed release capsule 1 cap(s), Oral, Daily, Start Date: 05/02/16 13:37:00 CDT Start Date: 05/02/16 Stop Date: 3/10/17 Status: Discontinuedomeprazole 40 mg oral delayed release capsule 1 cap(s), Oral, Daily, before a meal, # 30 cap(s), 0 Refill(s), Start Date: 06/16 13:33:00 AD OPERATIONS SPECIALIST Special Instructions: before a meal Start Date: 11/07/16 Status: Orderedomeprazole 40 mg oral delayed release capsule 1 cap(s), Oral, Daily, # 30 cap(s), 0 Refill(s), Start Date: 07/21/14 13:48:00 AD OPERATIONS SPECIALIST Start Date: 07/21/14 Stop Date: 07/26/14 [...] severe 8-10, 0 Refill(s), Start Date: 13:48:00 AD OPERATIONS SPECIALIST Start Date: 07/21/14 Stop Date: 07/26/14 Status: DiscontinuedPercocet 5/325 1 tab(s), Oral, q6hr interval, PRN pain moderate 4-7, 0 Refill(s), Start Date: 07/21/14 13:48:00 AD OPERATIONS SPECIALIST Start Date: 07/21/14 Stop Date: 05/28/15 [...] Refill(s), Start Date: 07/04/16 15:49:00 CDT, Pharmacy: [facility] Special Instructions: Oral ONETIME Start Date: 07/04/16 Stop Date: 11/17/16 Status: Completedsertraline 100 mg oral tablet 1 tab(s), Oral, Daily, # 30 tab(s), 0 Refill(s), Start Date: 07/21/14 13:48:00 AD OPERATIONS SPECIALIST Start Date: 07/21/14 Stop Date: 07/26/14 Status: Discontinuedsertraline 100 mg oral tablet 1 tab(s), Oral, Daily, 0 Refill(s), Start Date: 07/26/14 9:22:00 AD OPERATIONS SPECIALIST Start Date: 07/26/14 Stop Date: 03/19/16 Status: [...] 0 Refill(s) , Start Date: 11/08/15 6:19:00 AD OPERATIONS SPECIALIST Start Date: 11/08/15 Stop Date: 03/19/16 Status: CompletedtraMADol 50 mg oral tablet 1 tab(s), Oral, q6hr interval, PRN pain mild 1-3, 0 Refill(s), Start Date: 07/26 9:23:00 AD OPERATIONS SPECIALIST Start Date: 07/26/14 Stop Date: 05/28/15 Status: DiscontinuedtraMADol 50 mg oral tablet 1 tab(s), Oral, q6hr interval, PRN pain mild 1-3, 0 Refill(s), Start Date: 07/21 13:48:00 AD OPERATIONS SPECIALIST Start Date: 07/21/14 Stop Date: 07/26/14 [...] tab(s), 0 Refill(s), Start Date: 07/21/14 13:48:00 AD OPERATIONS SPECIALIST Start Date: 07/21/14 Stop Date: 07/26/14 [...] Daily, 0 Refill(s), Start Date: 07/26/14 9:23:00 AD OPERATIONS SPECIALIST Start Date: 07/26/14 Stop Date: 03/29/16 Status: [...] recent to oldest [Reference Range]: 1 2 Patient Temp 37.0 DegC2 *NA* (11/17/16 12:45 PM) pH Art [7.35-7.45] 7.39 (11/17/16 12:45 PM) pCO2 Art [35-45 mmHg] 38 mmHg (11/17/16 12:45 PM) pO2 Art [70-82 mmHg] 67 mmHg *LOW* (11/17/16 12:45 PM) Totl CO2 Art [23-30 mmol/L] 24 mmol/L (11/17/16 12:45 PM) HCO3 Art [21-28 mEq/L] 24 mEq/L (11/17/16 12:45 PM) Base Excess Art -1.7 mmol/L *NA* (11/17/16 12:45 PM) O2 % Sat Art (m) [95-98 %] 93 % *LOW* (11/17/16 12:45 PM) WBC [4.8-10.8 thou/mm3] 10.8 thou/mm3 (11/17/16 12:12 PM) RBC [4.20-5.40 Mil/mm3] 4.91 Mil/mm3 (11/17/16 12:12 PM) Hgb [12.0-16.0 g/dL] 12.7 g/dL (11/17/16 12:12 PM) Hct [37.0-47.0 %] 40.1 % (11/17/16 12:12 PM) MCV [80.0-94.0 fL] 81.7 fL (11/17/16 12:12 PM) MCH [25.0-38.0 pg/cell] 25.9 pg/cell (11/17/16 12:12 PM) MCHC [31.0-37.0 g/dL] 31.7 g/dL (11/17/16 12:12 PM) RDW [1.0-48.0 fL] 49.9 fL *HI* (11/17/16 12:12 PM) Platelet [130-400 thou/mm3] 611 thou/mm33 *HI* (11/17/16 12:12 PM) Neutrophils % Auto [50.0-75.0 %] 75.3 % *HI* (11/17/16 12:12 PM) Immature Granulocyte Auto [0.1-2.0 %] 0.4 % (11/17/16 12:12 PM) Lymphocytes % Auto [15.0-41.0 %] 19.6 % (11/17/16 12:12 PM) Monocytes % Auto [2.0-10.0 %] 4.2 % (11/17/16 12:12 PM) Eosinophils % Auto [0.0-6.0 %] 0.3 % (11/17/16 12:12 PM) Basophil % Auto [0.0-1.0 %] 0.2 % (11/17/16 12:12 PM) Neutrophils Absolute [1.5-5.9 thou/mm3] 8.1 thou/mm3 *HI* (11/17/16 12:12 PM) Immature Gran Absolute [0.01-0.03 thou/mm3] 0.04 thou/mm3 *HI* (11/17/16 12:12 PM) Lymphocytes Absolute [1.5-4.0 thou/mm3] 2.1 thou/mm3 (11/17/16 12:12 PM) Monocytes Absolute [0.0-0.9 thou/mm3] 0.4 thou/mm3 (11/17/16 12:12 PM) Eosinophil Absolute [0.0-0.7 thou/mm3] 0.0 thou/mm3 (11/17/16 12:12 PM) Basophil Absolute [0.0-0.2 thou/mm3] 0.0 thou/mm3 (11/17/16 12:12 PM) INR [0.9-1.1 INR] 1.1 INR (11/17/16 12:12 PM) PTT [22.7-35.2 seconds] 39.3 seconds *HI* (11/17/16 12:12 PM) D-Dimer [0.00-0.49 mcgFEU/mL] 0.22 mcgFEU/mL1 (11/17/16 12:12 PM) Sodium Lvl [135-144 mEq/L] 139 mEq/L (11/17/16 12:12 PM) Potassium Lvl [3.3-4.8 mEq/L] 3.7 mEq/L (11/17/16 12:12 PM) Chloride Lvl [98-107 mEq/L] 102 mEq/L (11/17/16 12:12 PM) Bicarbonate Lvl [22-30 mmol/L] 21 mmol/L *LOW* (11/17/16 12:12 PM) Anion Gap [10.0-20.0] 19.7 (11/17/16 12:12 PM) Glucose Lvl [70-108 mg/dL] 129 mg/dL *HI* (11/17/16 12:12 PM) BUN [7-21 mg/dL] 15 mg/dL (11/17/16 12:12 PM) Creatinine Lvl [0.50-1.20 mg/dL] 0.88 mg/dL (11/17/16 12:12 PM) BUN/Creat Ratio 17.0 *NA* (11/17/16 12:12 PM) eGFR AA [>=60] >60 (11/17/16 12:12 PM) eGFR CARLENE [>=60] >60 (11/17/16 12:12 PM) Calcium Lvl [8.6-10.2 mg/dL] 9.5 mg/dL (11/17/16 12:12 PM) Total Protein [6.4-8.3 g/dL] 7.2 g/dL (11/17/16 12:12 PM) Albumin Lvl [3.5-5.2 g/dL] 4.4 g/dL (11/17/16 12:12 PM) Globulin 2.8 *NA* (11/17/16 12:12 PM) A/G Ratio [0.9-1.8] 1.6 (11/17/16 12:12 PM) Bilirubin Total [0.1-1.0 mg/dL] 0.6 mg/dL (11/17/16 12:12 PM) Alkaline Phosphatase [39-129 unit/L] 109 unit/L (11/17/16 12:12 PM) AST [0-39 unit/L] 21 unit/L (11/17/16 12:12 PM) ALT [0-40 unit/L] 11 unit/L (11/17/16 12:12 PM) Lactic Acid Lvl [0.5-2.2 mmol/L] 2.1 mmol/L (11/17/16 12:12 PM) Procalcitonin [0.00-0.09 ng/mL] <0.05 ng/mL (11/17/16 12:12 PM) B-type Natriuretic Peptide [0-99 pg/mL] 11 pg/mL (11/17/16 12:12 PM) Myoglobin [0-74 ng/mL] 32 ng/mL 35 ng/mL (11/17/16 2:08 PM) (11/17/16 12:12 PM) Troponin-I [0.00-0.04 ng/mL] <0.01 ng/mL <0.01 ng/mL (11/17/16 2:08 PM) (11/17/16 12:12 PM) Estimated Creatinine Clearance 64.60 mL/min 83.60 mL/min (11/17/16 12:46 PM) (11/17/16 11:54 AM) 1Result Comment: In low risk patients, normal D-Dimer test results (< 0.50 ug FEU/mL) indicate a low probability for deep venous thrombosis/pulmonary embolism.2Result Comment: Arterial blood gas on room [id number] Comment: Platelet count reviewed by smear. Immunizations Vaccine Date Refusal Reason influenza virus vaccine, inactivated 05/01/16 Procedures Procedure Date Related Diagnosis Body Site Cystoscopy - SN1 04/01/16 Colonoscopy2 05/30/15 Esophagogastroduodenoscopy3 05/29/15 Tonsillectomy 1969 Appendectomy Back4 Cholecystectomy Hysterectomy Septum of nose5 1auto-populated from documented surgical [id number] from documented surgical [id number] from documented surgical [id number] septum repair Social History No data available for this section Assessment and Plan No data available for this section
--- NOTE | 2017-03-15 12:06 | ERNOTE ---
Headache ER HPI - General Presenting Symptoms: headache Time Seen by Provider: 03/15/17 11:44 Source: patient Exam Limitations: no limitations - Immun/Allergies/Home Medications Immunizations: IMMUNIZATION HX Immunizations Up to Date Yes History of Influenza Vaccine No Hx Pneumococcal Vaccination No Allergies/Adverse Reactions: Allergies No Known Allergies Allergy (Verified 03/15/17 11:30) Home Medications: HOME MEDICATIONS Gabapentin 400 mg PO TID 10/11/16 [Last Taken Unknown] Albuterol Sulfate [Ventolin Hfa] 2 puff IH Q4H PRN #1 inhaler 11/29/16 [Last Taken Unknown] Lisinopril [Zestril] 40 mg PO DAILY 11/29/16 [Last Taken Unknown] Omeprazole 40 mg PO DAILY 11/29/16 [Last Taken Unknown] Sertraline HCl [Zoloft] 100 mg PO DAILY 11/29/16 [Last Taken Unknown] Rivaroxaban [Xarelto] 10 mg PO DAILY 01/28/17 [Last Taken Unknown] Levofloxacin [Levaquin] 500 mg PO DAILY #10 tab 02/12/17 [Last Taken Unknown] HYDROcodone/ACETAMINOPHEN [[place] 5-325] 1 each PO QID PRN #15 tablet 02/20/17 [ Last Taken Unknown] Nitrofurantoin/Nitrofuran Mac [Macrobid] 100 mg PO Q12H #20 cap 02/20/17 [Last Taken Unknown] Ondansetron [Zofran Odt] 4 mg PO Q4H PRN #10 tab 02/23/17 [Last Taken Unknown] - History of Present Illness Narrative: Patient is here for a couple of concerns. She started to have a headache three days ago, mainly on the left side, light sensitive, no nausea, vomiting. She has a history of CVAs, had recurrentl headaches after those, that then tapered off but seem to have increased in frequency again recently. She has only been taking tylenol for it, denies any neuro deficits She also complains of dysuria and frequency for about the same time. She has been treated repeatedly with antibiotic recently, culture in our facility did not grow any bacteria. She has right lower abdominal pain, which she has had at the prior visits. She had recent abdominal CT and had an appendectomy Timing of Headache: gradual, constant Headache frequency: Present: chronic headaches, similar to previous headache Review of Systems - Review of Systems Constitutional: Present: recent illness. Absent: fever EYE: Absent: vision changes ENT: Absent: nose congestion, nasal drainage, sore throat Respiratory: Absent: shortness of breath Cardiology: Absent: chest pain Gastrointestinal/Abdominal: Present: See HPI, abdominal pain - right lower quadrant. Absent: nausea, vomiting, diarrhea Genitourinary: Present: See HPI Musculoskeletal: Absent: neck pain Skin: Absent: rash Neurological: Present: See HPI, headache. Absent: weakness, numbness - Patient's Past Medical History Patient History - Medical: Chronic Pain, Kidney stone, Migraines, Renal Disease Patient History - Cardiac/Respiratory: CVA/Stroke, Hypertension, TIA Patient History - Cancer: No Hx of Cancer Patient History - Surgical Procedures: Appendectomy, Back Surgery, Cholecystectomy, Hysterectomy Patient History - Other: None LMP (females 10-50): other - Family History Mother Family History - Cardiac/Respiratory: No pertinent hx dad Family History - Medical: Diabetes Type 2 Family History - Cardiac/Respiratory: No pertinent hx - Social History Living Situations: home Abuse History: No History of abuse Psych History: No pertinent hx Does anyone smoke in the home?: No Alcohol Use: rarely Drug Use: none - Immunizations Immunizations Up to Date: Yes Hx Pneumococcal Vaccination: No History of Influenza Vaccine: No Physical Exam - Physical Exam General Appearance: Present: wd/wn, alert, mild distress, anxious Head Exam: Present: normal inspection, no evidence of injury Eye Exam: Normal inspection: bilateral, PERRL: bilateral, EOMI: bilateral Ears, Nose, Throat: Present: normal ENT inspection, normal pharynx Neck: Present: normal inspection, nontender, supple Respiratory: Present: no respiratory distress, normal breath sounds, no accessory muscle use, lungs clear Cardiovascular/Chest: Present: regular rate, rhythm, no murmur Gastrointestinal/Abdominal: Present: normal bowel sounds, nondistended, soft, tenderness - mild RLQ. Absent: guarding, rebound Back Exam: Present: normal inspection, no vertebral tenderness Neurological Exam: Present: alert, oriented, normal mood/affect, no motor/ sensory deficits Skin Exam: Present: normal color, warm/dry ED Progress - Results and Orders Patient's Lab Results:: I have reviewed the patient's lab results. - Vital Signs Patient's Vital Signs:: I have reviewed the patient's vital signs. Vital Signs: Vital Signs 07/16/17 07/16/17 11:27 11:46 Temperature 37.2 C Pulse Rate 105 H 107 H Respiratory 18 16 Rate Blood Pressure 95/64 174/96 O2 Sat by Pulse 98 96 Oximetry - Progress/Reassessment Chief Complaint: General Assessment Progress Note-Subjective: 03/15/17 12:54 pain better, not resolved, patient appears relaxed and calm, blood pressure improved discussed results, discussed that narcotics would cause more rebound headache, patient is ready to go home, will notify if culture grows anything, discussed that with repeated normal cultures no antibiotic is indicated at this time, consider alternate diagnosis Departure Clinical Impression: Dysuria Migraine Qualifiers: Migraine type: unspecified Status migrainosus presence: without status migrainosus Intractability: not intractable Qualified Code(s): G43.909 - Migraine, unspecified, not intractable, without status migrainosus - Departure Disposition: Home self-care Condition: Fair Instructions: Recurrent Migraine Headache, [id number], Dysuria Additional Instructions: call your doctor for follow up you might need to see a urologist for your bladder symptoms
[2017-03-15 12:16] LABS: Hematocrit 35.8 % (37.0-47.0); Hemoglobin 10.8 gm/dL (12.5-16.0); Mean Cell Volume 79.6 fl (78-100); Mean Corpuscular Hgb Conc 30.2 g/dl (32-36); Mean Platelet Volume 10.2 fl (6.0-9.5); Neutrophil # 2.8 K/mm3 (1.3-6.0); Platelet Count 413 K/mm3 (150-450); Red Cell Distribution Width 15.9 % (11.5-14.0); White Blood Count 5.9 K/mm3 (4.0-10.5)
[2017-03-15] MEDS ORDERED: diphenhydrAMINE HCL 50 MG/ML VIAL ONE (12:23)
[2017-03-15] MEDS ORDERED: METOCLOPRAMIDE HCL 5 MG/ML VIAL ONE (12:24)
[2017-03-15 12:30] LABS: Albumin * 3.6 gm/dl (3.4-5.0); Anion Gap 10.1 mmol/L (6.8-13.8); BUN/Creatinine Ratio 13.1 (9.0-21.6); Bilirubin, Total 0.3 mg/dL (0.0-1.1); Ca. Corrected For Albumin 9.3 mg/dL (8.4-10.2); Calcium * 9.3 mg/dL (7.9-10.9); Potassium 4.1 mmol/L (3.4-4.6); Total Protein 7.2 gm/dL (6.2-8.2)
[2017-03-15 13:17] VITALS: BP 151/84
== END 2017-03-15 13:05 | disposition home or self-care (01) ==
LOC: ER 10:47
DX: R30.0 Dysuria (principal); G43.909 Migraine, unspecified, not intractable, without status migrainosus

== ENCOUNTER 2017-04-06 11:47 | Emergency (ER) | payer MEDICAID, MEDICARE ==
[2017-04-06 11:56] VITALS: BP 121/74
[2017-04-06] MEDS ORDERED: ORPHENADRINE CITRATE 30 MG/ML VIAL IM ONE (12:35)
[2017-04-06] MEDS ORDERED: KETOROLAC TROMETHAMINE 60 MG/2 ML VIAL IM ONE ×2 (12:35→12:37)
[2017-04-06] MEDS ORDERED: ORPHENADRINE CITRATE 30 MG/ML VIAL ONE (12:37)
--- NOTE | 2017-04-06 13:14 | ERNOTE ---
Back Pain ER HPI Date of Service: 04/06/17 Presenting Symptoms: injury/pain to back, hx chronic back pain Time Seen by Provider: 04/06/17 12:26 Source: patient, RN notes reviewed, other - [facility] database Immunizations: IMMUNIZATION HX Immunizations Up to Date Yes History of Influenza Vaccine Yes Hx Pneumococcal Vaccination Yes Allergies/Adverse Reactions: Allergies No Known Allergies Allergy (Verified 03/15/17 11:30) Home Medications: HOME MEDICATIONS Gabapentin 400 mg PO TID 10/11/16 [Last Taken Unknown] Lisinopril [Zestril] 40 mg PO DAILY 11/29/16 [Last Taken Unknown] Omeprazole 40 mg PO DAILY 11/29/16 [Last Taken Unknown] Sertraline HCl [Zoloft] 100 mg PO DAILY 11/29/16 [Last Taken Unknown] Rivaroxaban [Xarelto] 10 mg PO DAILY 01/28/17 [Last Taken Unknown] Ondansetron [Zofran Odt] 4 mg PO Q4H PRN #10 tab 02/23/17 [Last Taken Unknown] Cyclobenzaprine HCl [Flexeril] 10 mg PO TID PRN #20 tab 04/06/17 [Last Taken Unknown] HYDROcodone/ACETAMINOPHEN [[place] 5-325] 1 - 2 tab PO Q6H PRN #20 tab 04/06/17 [ Last Taken Unknown] Narrative: 56 y/o female brought to the ED by private vehicle for a back injury that occurred at home a few days ago. She fell and landed on the floor. She has been having pain in her right thoracic region since. She took leftover Tramadol with some relief. She denies any other injuries. She has a history of chronic back pain but this involves her low back. Quality/Severity: Reports: severe, aching Location of pain: Reports: mid back, no radiation Recent Injury?: Reports: yes Possible Precipitating Factor: Reports: fall/near fall Prior Treament: Reports: recently seen, similar symptoms before Review of Systems - Review of Systems Constitutional: Absent: recent illness, fever, chills EYE: Present: no symptoms reported ENT: Present: no symptoms reported Respiratory: Absent: shortness of breath, cough Cardiology: Absent: chest pain, edema Gastrointestinal/Abdominal: Absent: nausea, vomiting, abdominal pain Genitourinary: Absent: hematuria, decreased urinary output Musculoskeletal: Present: back pain. Absent: neck pain, joint pain Skin: Absent: rash, lesions Neurological: Absent: weakness, numbness, tingling Endocrine: Present: no symptoms reported Hematologic/Lymphatic: Present: no symptoms reported Psych: Present: no symptoms reported - Patient's Past Medical History Patient History - Medical: Anxiety, Chronic Pain, Depression, Kidney stone, Migraines, Renal Disease Patient History - Cardiac/Respiratory: CVA/Stroke, Hypertension, TIA Patient History - Cancer: No Hx of Cancer Patient History - Surgical Procedures: Appendectomy, Back Surgery, Cholecystectomy, Hysterectomy Patient History - Other: None LMP (females 10-50): Menopausal - Family History Mother Family History - Cardiac/Respiratory: No pertinent hx dad Family History - Medical: Diabetes Type 2 Family History - Cardiac/Respiratory: No pertinent hx - Social History Living Situations: home Abuse History: No History of abuse Psych History: Hx of Anxiety, Hx of Depression, Current tx/ever been on anti- depressants or anti-anxiety meds Does anyone smoke in the home?: No Smoking Status: Never smoker Have you smoked in the past 12 months: No Do you dip or chew tobacco: No Alcohol Use: rarely Drug Use: none - Immunizations Immunizations Up to Date: Yes Hx Pneumococcal Vaccination: Yes History of Influenza Vaccine: Yes Physical Exam - Physical Exam General Appearance: Present: wd/wn, alert, mild distress Head Exam: Present: normal inspection Neck: Present: normal inspection, nontender, supple, full range of motion Respiratory: Present: no respiratory distress, normal breath sounds, no accessory muscle use, lungs clear Cardiovascular/Chest: Present: regular rate, rhythm, no murmur Back Exam: Present: no CVA tenderness, vertebral tenderness - thoracic region, decreased range of motion Extremity Exam: Present: normal inspection, normal range of motion, no edema Neurological Exam: Present: alert, oriented, normal mood/affect, no motor/ sensory deficits Skin Exam: Present: normal color, warm/dry ED Progress - Vital Signs Patient's Vital Signs:: I have reviewed the patient's vital signs. Vital Signs: Vital Signs 04/06/17 11:50 Temperature 37.3 C Pulse Rate 93 Respiratory 18 Rate Blood Pressure 121/74 O2 Sat by Pulse 99 Oximetry - X-Ray X-Ray #1 X-Ray: thoracic Interpretation: Reviewed by me X-ray Comments: No acute osseous findings - Progress/Reassessment Chief Complaint: Back Pain Progress:: Improved Departure Clinical Impression: Acute thoracic back pain Qualifiers: Back pain laterality: right Qualified Code(s): M54.6 - Pain in thoracic spine Fall at home Qualifiers: Encounter type: initial encounter Qualified Code(s): W19.XXXA - Unspecified fall, initial encounter; Y92.099 - Unspecified place in other non-institutional residence as the place of occurrence of the external cause - Departure Disposition: Home self-care Condition: Stable Instructions: Back Pain, Adult Additional Instructions: Ice to sore areas Gentle stretching Establish with a new PCP Prescriptions: Cyclobenzaprine HCl [Flexeril] 10 mg PO TID PRN #20 tab PRN Reason: MUSCLE SPASMS HYDROcodone/ACETAMINOPHEN [[place] 5-325] 1 - 2 tab PO Q6H PRN #20 tab PRN Reason: Pain
[2017-04-06] MEDS ORDERED: HYDROcodone/ACETAMINOPHEN 1 EACH TABLET PO ONE (13:21)
== END 2017-04-06 13:40 | disposition home or self-care (01) ==
LOC: ER 11:47
DX: M54.6 Pain in thoracic spine (principal); W19.XXXA Unspecified fall, initial encounter; Y92.099 Unspecified place in other non-institutional residence as the place of occurrence of the external cause; F41.8 Other specified anxiety disorders; G89.29 Other chronic pain; Z86.73 Personal history of transient ischemic attack (TIA), and cerebral infarction without residual deficits; I10 Essential (primary) hypertension

== ENCOUNTER 2017-04-10 15:07 | Emergency (ER) | payer MEDICARE ==
[2017-04-10] MEDS ORDERED: NORMAL SALINE 1,000 ML IV ONE (15:30)
--- NOTE | 2017-04-10 15:37 | ERNOTE ---
Dizziness ER Record Date of Service: 04/10/17 Presenting Symptoms: other - syncopal episode Time Seen by Provider: 04/10/17 15:11 Source: patient, EMS Exam Limitations: no limitations Immunizations: IMMUNIZATION HX Immunizations Up to Date Yes History of Influenza Vaccine Yes Hx Pneumococcal Vaccination No Allergies/Adverse Reactions: Allergies Allergy/AdvReac Type Severity Reaction Status Date / Time No Known Allergies Allergy Verified 03/15/17 11:30 Home Medications: HOME MEDICATIONS Gabapentin 400 mg PO TID 10/11/16 [Last Taken Unknown] Lisinopril [Zestril] 40 mg PO DAILY 11/29/16 [Last Taken Unknown] Omeprazole 40 mg PO DAILY 11/29/16 [Last Taken Unknown] Sertraline HCl [Zoloft] 100 mg PO DAILY 11/29/16 [Last Taken Unknown] Rivaroxaban [Xarelto] 10 mg PO DAILY 01/28/17 [Last Taken Unknown] Ondansetron [Zofran Odt] 4 mg PO Q4H PRN #10 tab 02/23/17 [Last Taken Unknown] Cyclobenzaprine HCl [Flexeril] 10 mg PO TID PRN #20 tab 04/06/17 [Last Taken Unknown] HYDROcodone/ACETAMINOPHEN [[place] 5-325] 1 - 2 tab PO Q6H PRN #20 tab 04/06/17 [ Last Taken Unknown] - History of Present Illness Narrative: 56 red female presents to the emergency room for syncopal episode at home. Patient states that she got up to answer the door when she opened the door she felt dizzy and collapsed. Patient's friend did not notice any seizure-like activity but did call 911. Patient states she was out for only 5 seconds and then came to. Patient does complain of a mild headache and left ankle pain. Date (Duration): 04/10/17 Timing and Duration: sudden onset Episodes lasting:: 5 sec Noted on awakening:: Yes Severity: max: mild Severity: currently: mild Associated Symptoms: Present: light headedness Sense of movement: Present: none Fainted/near fainted while:: Present: standing Usually:: Present: walks w/o assistance Modifying Factors - (Improves): Reports: nothing Modifying Factors - (Worsens): Reports: standing position Prior Treament: Reports: other - on hydrocodone and flearil for back pain from a recent fall with in the last few days Review of Systems - Review of Systems Constitutional: Present: See HPI EYE: Present: no symptoms reported ENT: Present: no symptoms reported Respiratory: Present: no symptoms reported Cardiology: Present: See HPI, syncope Gastrointestinal/Abdominal: Present: no symptoms reported Genitourinary: Present: no symptoms reported Musculoskeletal: Present: back pain Skin: Present: no symptoms reported Neurological: Present: See HPI, headache Endocrine: Present: no symptoms reported Hematologic/Lymphatic: Present: no symptoms reported Psych: Present: no symptoms reported All Other Systems: All systems neg except as marked - Patient's Past Medical History Patient History - Medical: Anxiety, Chronic Pain, Depression, Kidney stone, Migraines, Renal Disease Patient History - Cardiac/Respiratory: CVA/Stroke, Hypertension, TIA Patient History - Cancer: No Hx of Cancer Patient History - Surgical Procedures: Appendectomy, Back Surgery, Cholecystectomy, Hysterectomy Patient History - Other: None - Family History Mother Family History - Cardiac/Respiratory: No pertinent hx dad Family History - Medical: Diabetes Type 2 Family History - Cardiac/Respiratory: No pertinent hx - Social History Living Situations: home Abuse History: No History of abuse Psych History: Hx of Anxiety, Hx of Depression, Current tx/ever been on anti- depressants or anti-anxiety meds Does anyone smoke in the home?: No Smoking Status: Never smoker Alcohol Use: rarely Drug Use: none - Immunizations Immunizations Up to Date: Yes Hx Pneumococcal Vaccination: No History of Influenza Vaccine: Yes Physical Exam - Physical Exam General Appearance: Present: wd/wn, alert, no apparent distress Head Exam: Present: normal inspection, no evidence of injury, no tenderness w palpation Eye Exam: Normal inspection: bilateral, PERRL: bilateral, EOMI: bilateral Ears, Nose, Throat: Present: normal ENT inspection, normal pharynx Neck: Present: normal inspection, nontender, supple, full range of motion. Absent: tender lateral, tender posterior midline, thyromegaly Respiratory: Present: no respiratory distress, normal breath sounds, no accessory muscle use, chest nontender, lungs clear Cardiovascular/Chest: Present: regular rate, rhythm, no murmur, normal peripheral pulses Peripheral Pulses: N=norm/S=strong/W=weak/B=bound/A=absent: Dorsalis-pedis (R): Normal, Dorsalis-pedis (L): Normal Gastrointestinal/Abdominal: Present: normal bowel sounds, nontender, nondistended, soft, no organomegaly Back Exam: Present: normal inspection, normal range of motion, no CVA tenderness , no vertebral tenderness Extremity Exam: Present: normal inspection, non-tender, normal range of motion, no edema Neurological Exam: Present: alert, oriented, normal mood/affect, no motor/ sensory deficits, [employer]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 Absent: facial droop Skin Exam: Present: normal color, warm/dry Lymphatic Exam: Present: no adenopathy ED Progress - Vital Signs Patient's Vital Signs:: I have reviewed the patient's vital signs. Vital Signs: Vital Signs 04/10/17 04/10/17 04/10/17 15:09 15:12 15:14 Temperature 37.5 C 37.5 C Pulse Rate 109 H 109 H 132 H Respiratory 18 18 Rate Blood Pressure 144/81 144/81 O2 Sat by Pulse 97 97 Oximetry 04/10/17 15:15 Temperature Pulse Rate 104 H Respiratory Rate Blood Pressure O2 Sat by Pulse Oximetry - X-Ray X-Ray #1 X-Ray: ankle Interpretation: Reviewed by me X-ray Comments: Ankle Minimum 3 View LT * No definable fracture lucency or cortical discontinuity. Joint spaces are in gross normal alignment without subluxation or dislocation. Soft tissue swelling noted at the anterior aspect of the ankle and dorsal aspect of the proximal foot. Small calcaneal plantar heel spur noted. Slight thickening of the Achilles tendon shadow suggested on the lateral image. IMPRESSION: 1. No definable acute fracture. 2. Soft tissue swelling noted anterior to the ankle and dorsal aspect of the foot. 3. Somewhat thickened appearance of the Achilles tendon. Consider Achilles tendinopathy to include potential acute tear. Electronically signed by Jaime Edmonds M.D.. Jaime Edmonds MD - CT/Ultrasound CT/Ultrasound Narrative: CT Head W/O *: Mild cerebral volume loss present, most likely age-related. Series 3 image 16 demonstrates stable ovoid hypodensity within the lateral aspect of the left thalamus, measuring approximately 6 x 6.5 mm, likely an old lacunar infarct, stable. No acute intracranial hemorrhage. No midline shift or herniation. Agustin and white matter differentiation is grossly intact. No obvious soft tissue swelling or scalp hematoma noted. Skull grossly intact, without signs of depressed skull fracture. Visualized portions of the paranasal sinuses are clear. Mastoid air cells are grossly clear. IMPRESSION: 1. No acute intracranial hemorrhage or mass effect. 2. Stable likely old lacunar infarct of the left thalamus. 3. Additional comments as above. Electronically signed by Jaime Edmonds M.D.. Jaime Edmonds MD - Progress/Reassessment Chief Complaint: Dizziness Progress:: Improved Plan - Plan Plan: Patient educated on staying hydrated and arising from a sitting to standing position slowly especially when she is taking her narcotics and her muscle relaxers. Patient educated on increasing her fluids. Patient also educated on follow-up with orthopedist if she still has left ankle pain in a few days. Departure Clinical Impression: Dehydration symptoms, Syncope due to orthostatic hypotension - Departure Disposition: Home Follow Up Needed Condition: Stable Instructions: Rehydration, Adult, Orthostatic Hypotension Additional Instructions: Continue previously prescribed medications. Follow up with your primary care provider in the next 2 or 3 days. Please remember to go from a sitting to a standing position slowly. Return to emergency room if symptoms return or persist. Remember to drink plenty of fluids.
[2017-04-10 16:00] LABS: Hematocrit 39.2 % (37.0-47.0); Hemoglobin 12.1 gm/dL (12.5-16.0); Mean Cell Volume 77.3 fl (78-100); Mean Corpuscular Hemoglobin 23.9 pg (27-31); Mean Corpuscular Hgb Conc 30.9 g/dl (32-36); Neutrophil # 7.9 K/mm3 (1.3-6.0); Neutrophil % 70.3 % (42-75.0); Platelet Count 487 K/mm3 (150-450); Red Blood Count 5.07 M/mm3 (4.2-5.4); White Blood Count 11.2 K/mm3 (4.0-10.5)
[2017-04-10 16:15] LABS: Anion Gap 17.4 mmol/L (6.8-13.8); BUN/Creatinine Ratio 14.4 (9.0-21.6); Bilirubin, Total 0.3 mg/dL (0.0-1.1); Ca. Corrected For Albumin 9.5 mg/dL (8.4-10.2); Calcium * 9.8 mg/dL (7.9-10.9); Potassium 3.4 mmol/L (3.4-4.6); Total Protein 7.7 gm/dL (6.2-8.2)
[2017-04-10 16:39] VITALS: BP 144/81
== END 2017-04-10 17:15 | disposition home or self-care (01) ==
LOC: ER 15:07
DX: E86.0 Dehydration (principal); I95.1 Orthostatic hypotension

== ENCOUNTER 2017-04-16 00:47 | Emergency (ER) | payer MEDICARE ==
--- NOTE | 2017-04-16 01:25 | ERNOTE ---
Lower Extremity HPI - General Lower Extremities Pain: leg: left - pain and swelling Time Seen by Provider: 04/16/17 00:59 Source: patient Exam Limitations: no limitations - Immun/Allergies/Home Medications Immunizations: IMMUNIZATION HX Immunizations Up to Date Yes History of Influenza Vaccine Yes Hx Pneumococcal Vaccination Yes Allergies/Adverse Reactions: Allergies Allergy/AdvReac Type Severity Reaction Status Date / Time No Known Allergies Allergy Verified 04/16/17 00:55 Home Medications: HOME MEDICATIONS Gabapentin 400 mg PO TID 10/11/16 [Last Taken Unknown] Lisinopril [Zestril] 40 mg PO DAILY 11/29/16 [Last Taken Unknown] Omeprazole 40 mg PO DAILY 11/29/16 [Last Taken Unknown] Sertraline HCl [Zoloft] 100 mg PO DAILY 11/29/16 [Last Taken Unknown] Rivaroxaban [Xarelto] 10 mg PO DAILY 01/28/17 [Last Taken Unknown] Ondansetron [Zofran Odt] 4 mg PO Q4H PRN #10 tab 02/23/17 [Last Taken Unknown] - History of Present Illness Narrative: Pt twisted her ankle last week and now has lower leg pain Occurred: last week Location of Incident: home Method of Injury: Reports: twisted Reason for Fall: Reports: fainted Review of Systems - Review of Systems Constitutional: Present: no symptoms reported Respiratory: Absent: shortness of breath Cardiology: Absent: chest pain Musculoskeletal: Present: See HPI Skin: Absent: rash, lumps - Patient's Past Medical History Patient History - Medical: Anxiety, Chronic Pain, Depression, Kidney stone, Migraines, Renal Disease Patient History - Cardiac/Respiratory: CVA/Stroke, Hypertension, TIA Patient History - Cancer: No Hx of Cancer Patient History - Surgical Procedures: Appendectomy, Back Surgery, Cholecystectomy, Hysterectomy Patient History - Other: None - Family History Mother Family History - Cardiac/Respiratory: No pertinent hx dad Family History - Medical: Diabetes Type 2 Family History - Cardiac/Respiratory: No pertinent hx - Social History Living Situations: home Abuse History: No History of abuse Psych History: Hx of Anxiety, Hx of Depression, Current tx/ever been on anti- depressants or anti-anxiety meds Does anyone smoke in the home?: No Smoking Status: Current every day smoker Patient requests Smoking Cessation Consult: No Initiate information on Smoking Cessation: No Alcohol Use: rarely Drug Use: none - Immunizations Immunizations Up to Date: Yes Hx Pneumococcal Vaccination: Yes History of Influenza Vaccine: Yes Physical Exam - Physical Exam General Appearance: Present: wd/wn, alert, no apparent distress Head Exam: Present: normal inspection, no evidence of injury Eye Exam: Normal inspection: bilateral Neck: Present: normal inspection, nontender, supple Respiratory: Present: no respiratory distress, no accessory muscle use Peripheral Pulses: N=norm/S=strong/W=weak/B=bound/A=absent: Dorsalis-pedis (R): Normal, Dorsalis-pedis (L): Normal Back Exam: Present: normal inspection, normal range of motion Extremity Exam: Present: bony tenderness - left proximal, lateral lower leg. ED Progress - Vital Signs Vital Signs: Vital Signs 04/16/17 04/16/17 00:48 00:51 Temperature 36.4 C L Pulse Rate 96 Respiratory 20 Rate Blood Pressure 121/74 131/93 O2 Sat by Pulse 99 Oximetry - X-Ray X-Ray #1 X-Ray: leg Interpretation: Interp. by nc X-ray Comments: left proximal fibula fracture with minimal displacement. - Progress/Reassessment Chief Complaint: Lower Extremity Pain/ Injury Progress Note-Subjective: 04/16/17 01:49 Spoke with Eyad Allen PA-C. He requested a knee immobilizer as it is painful for the patient to bend her knee. She already has an appointment with him tomorrow. Departure Clinical Impression: Fibula upper end fracture Qualifiers: Encounter type: initial encounter Fracture type: closed Fracture morphology: unspecified fracture morphology Laterality: left Qualified Code(s): S82.832A - Other fracture of upper and lower end of left fibula, initial encounter for closed fracture - Departure Disposition: Home Follow Up Needed Condition: Good Instructions: Fibular Fracture With [facility] Additional Instructions: Take pain meds as needed. Keep your appointment with orthopedics in the morning Referrals: Eyad Allen, PAC [[facility]] -
[2017-04-16] MEDS ORDERED: NALBUPHINE HCL 20 MG/ML AMPUL IM ONE (01:48)
[2017-04-16] MEDS ORDERED: PROMETHAZINE HCL 25 MG/ML AMPUL IM ONE (01:49)
[2017-04-16] MEDS ORDERED: PROMETHAZINE HCL 25 MG/ML AMPUL ONE (01:50)
[2017-04-16] MEDS ORDERED: NALBUPHINE HCL 20 MG/ML AMPUL ONE (01:50)
[2017-04-16] MEDS ORDERED: HYDROcodone/ACETAMINOPHEN 1 EACH TABLET PO ONE (01:56)
[2017-04-16] MEDS ORDERED: HYDROcodone/ACETAMINOPHEN 1 EACH TABLET ONE (02:02)
[2017-04-16 02:32] VITALS: BP 126/72
== END 2017-04-16 02:15 | disposition home or self-care (01) ==
LOC: ER 00:47
PROC: 2W3MX1Z Immobilization of Left Lower Extremity using Splint (ICD-10-PCS; principal; 2017-04-16)
DX: S82.832A Other fracture of upper and lower end of left fibula, initial encounter for closed fracture (principal); F17.200 Nicotine dependence, unspecified, uncomplicated; F41.9 Anxiety disorder, unspecified; I10 Essential (primary) hypertension; Z87.442 Personal history of urinary calculi; Z79.01 Long term (current) use of anticoagulants; X50.1XXA Overexertion from prolonged static or awkward postures, initial encounter

== ENCOUNTER 2017-05-30 09:59 | Emergency (ER) | payer MEDICARE, MEDICAID ==
[2017-05-30 10:29] LABS: Urine Appearance Slightly Cloudy; Urine Bilirubin Negative (NEGATIVE); Urine Blood Negative /ul (NEGATIVE); Urine Color Dark Yellow; Urine Ketone 5 mg/dL (NEGATIVE)
[2017-05-30 10:30] LABS: Urine Bacteria TRACE; Urine Nitrite Negative (NEGATIVE); Urine Protein 15 mg/dL (NEGATIVE); Urine RBC None Seen /hpf (0-5); Urine Urobilinogen Normal (NORMAL); Urine WBC 0-5 /hpf (0-5)
[2017-05-30] MEDS ORDERED: MORPHINE SULFATE 4 MG/ML SYRG IM ONE (10:30)
[2017-05-30] MEDS ORDERED: ORPHENADRINE CITRATE 30 MG/ML VIAL IM ONE (10:30)
[2017-05-30] MEDS ORDERED: ORPHENADRINE CITRATE 30 MG/ML VIAL ONE (10:52)
[2017-05-30] MEDS ORDERED: MORPHINE SULFATE 4 MG/ML SYRG ONE (10:52)
[2017-05-30] MEDS ORDERED: NORMAL SALINE 1,000 ML IV ONE ×2 (11:11→12:47)
--- NOTE | 2017-05-30 11:18 | ERNOTE ---
Back Pain ER HPI Date of Service: 05/30/17 Presenting Symptoms: hx chronic back pain Time Seen by Provider: 05/30/17 10:12 Source: patient Exam Limitations: no limitations Immunizations: IMMUNIZATION HX Immunizations Up to Date Yes History of Influenza Vaccine Yes Hx Pneumococcal Vaccination Yes Allergies/Adverse Reactions: Allergies No Known Allergies Allergy (Verified 04/16/17 00:55) Home Medications: HOME MEDICATIONS Lisinopril [Zestril] 40 mg PO DAILY 11/29/16 [Last Taken Unknown] Omeprazole 40 mg PO DAILY 11/29/16 [Last Taken Unknown] Sertraline HCl [Zoloft] 100 mg PO DAILY 11/29/16 [Last Taken Unknown] Rivaroxaban [Xarelto] 10 mg PO DAILY 01/28/17 [Last Taken Unknown] Ondansetron [Zofran Odt] 4 mg PO Q4H PRN #10 tab 02/23/17 [Last Taken Unknown] Cyclobenzaprine HCl [Flexeril] 10 mg PO TID PRN #30 tab 05/30/17 [Last Taken Unknown] Lidocaine HCl [Pain Relief] 80 ml TP BID #1 cream.ml. 05/30/17 [Last Taken Unknown] Narrative: Pt. comes in with low back pain that started yesterday morning after she went to the bathroom in the morning. Pt. denies any SOB, CP, NVD, numbness, tingling , incontinence of bowel or bladder, or alleviating factors despite taking her PRN Tramadol. Pt. states that movement exacerbates the pain and that it radiates to her R buttock. Pt. went to see her PCP this morning and he sent her hers as he thought it may be kidney stones and thought she needed emergent treatment. Review of Systems - Review of Systems Constitutional: Present: no symptoms reported. Absent: recent illness, fever, chills, weakness, fatigue, malaise EYE: Present: no symptoms reported ENT: Present: no symptoms reported Respiratory: Present: no symptoms reported. Absent: shortness of breath, cough , wheezing Cardiology: Present: no symptoms reported. Absent: chest pain, palpitations, edema Gastrointestinal/Abdominal: Present: no symptoms reported Genitourinary: Present: no symptoms reported Musculoskeletal: Present: back pain - B lumbar radiates to R buttock. Absent: joint pain Skin: Present: no symptoms reported. Absent: rash, change in color Neurological: Present: no symptoms reported. Absent: headache, dizziness/light- headedness, numbness, tingling Endocrine: Present: no symptoms reported All Other Systems: All systems neg except as marked - Patient's Past Medical History Patient History - Medical: Anxiety, Chronic Pain, Depression, Kidney stone, Migraines, Renal Disease Patient History - Cardiac/Respiratory: CVA/Stroke, Hypertension, TIA Patient History - Cancer: No Hx of Cancer Patient History - Surgical Procedures: Appendectomy, Back Surgery, Cholecystectomy, Hysterectomy Patient History - Other: None - Family History Mother Family History - Cardiac/Respiratory: No pertinent hx dad Family History - Medical: Diabetes Type 2 Family History - Cardiac/Respiratory: No pertinent hx - Social History Living Situations: home Abuse History: No History of abuse Psych History: Hx of Anxiety, Hx of Depression, Current tx/ever been on anti- depressants or anti-anxiety meds Does anyone smoke in the home?: No Smoking Status: Current every day smoker Alcohol Use: rarely Drug Use: none - Immunizations Immunizations Up to Date: Yes Hx Pneumococcal Vaccination: Yes History of Influenza Vaccine: Yes Physical Exam - Physical Exam General Appearance: Present: wd/wn, alert, no apparent distress Head Exam: Present: normal inspection, no evidence of injury Eye Exam: Normal inspection: bilateral, PERRL: bilateral, EOMI: bilateral Ears, Nose, Throat: Present: normal ENT inspection, normal pharynx Neck: Present: normal inspection, nontender. Absent: lymphadenopathy (R), lymphadenopathy (L) Respiratory: Present: no respiratory distress, normal breath sounds, no accessory muscle use, chest nontender, lungs clear Cardiovascular/Chest: Present: regular rate, rhythm, no murmur, normal peripheral pulses Gastrointestinal/Abdominal: Present: normal bowel sounds, nontender, nondistended, soft, no organomegaly Back Exam: Present: normal range of motion, no CVA tenderness, vertebral tenderness - L3-L5 , muscle spasm - B paraspinous Extremity Exam: Present: normal inspection, non-tender, normal range of motion, no edema Neurological Exam: Present: alert, oriented, normal mood/affect, no motor/ sensory deficits Skin Exam: Present: normal color, warm/dry. Absent: pallor, skin rash ED Progress - Results and Orders Patient's Lab Results:: I have reviewed the patient's lab results. - Vital Signs Patient's Vital Signs:: I have reviewed the patient's vital signs. Vital Signs: Vital Signs 05/30/17 10:02 Temperature 36.4 C L Pulse Rate 83 Respiratory 14 Rate Blood Pressure 93/57 O2 Sat by Pulse 100 Oximetry - Progress/Reassessment Chief Complaint: Back Pain Departure Clinical Impression: Iron (Fe) deficiency anemia Qualifiers: Iron deficiency anemia type: unspecified iron deficiency Qualified Code(s): D50.9 - Iron deficiency anemia, unspecified Chronic low back pain Qualifiers: Back pain laterality: bilateral Sciatica presence: with sciatica Sciatica laterality: sciatica of right side Qualified Code(s): M54.41 - Lumbago with sciatica, right side; G89.29 - Other chronic pain - Departure Disposition: Home self-care Condition: Good Instructions: Chronic Pain, Hypotension, [id number], Dehydration, Adult, Easy -to-Read Additional Instructions: Please follow up with primary provider on Thursday, take Iron 325mg daily, stop amlodipine, increase water intake to 8- 8oz glasses daily. Prescriptions: Cyclobenzaprine HCl [Flexeril] 10 mg PO TID PRN #30 tab PRN Reason: MUSCLE SPASMS Lidocaine HCl [Pain Relief] 80 ml TP BID #1 cream.ml.
[2017-05-30] MEDS ORDERED: KETOROLAC TROMETHAMINE 30 MG/ML VIAL IV ONE (12:09)
[2017-05-30 13:55] LABS: Hematocrit 29.9 % (37.0-47.0); Hemoglobin 8.9 gm/dL (12.5-16.0); Mean Cell Volume 80.6 fl (78-100); Mean Corpuscular Hgb Conc 29.8 g/dl (32-36); Mean Platelet Volume 9.3 fl (6.0-9.5); Neutrophil # 7.2 K/mm3 (1.3-6.0); Neutrophil % 66.3 % (42-75.0); Platelet Count 329 K/mm3 (150-450); Red Blood Count 3.71 M/mm3 (4.2-5.4); Red Cell Distribution Width 17.4 % (11.5-14.0); White Blood Count 10.9 K/mm3 (4.0-10.5)
[2017-05-30] MEDS ORDERED: LIDOCAINE 1 PATCH ADH..PATCH TP ONE (14:00)
[2017-05-30 14:10] LABS: Albumin * 3.3 gm/dl (3.4-5.0); Anion Gap 10.6 mmol/L (6.8-13.8); BUN/Creatinine Ratio 12.7 (9.0-21.6); Bilirubin, Total 0.5 mg/dL (0.0-1.1); Calcium * 7.8 mg/dL (7.9-10.9); Carbon Dioxide 27.2 mmol/L (24-32.6); Potassium 3.8 mmol/L (3.4-4.6); Total Protein 6.2 gm/dL (6.2-8.2)
[2017-05-30 14:49] VITALS: BP 96/52
== END 2017-05-30 14:15 | disposition home or self-care (01) ==
LOC: ER 09:59
DX: M54.41 Lumbago with sciatica, right side (principal); G89.29 Other chronic pain; D50.9 Iron deficiency anemia, unspecified; Z87.442 Personal history of urinary calculi; F17.200 Nicotine dependence, unspecified, uncomplicated; F41.9 Anxiety disorder, unspecified; F32.9 Major depressive disorder, single episode, unspecified; Z79.01 Long term (current) use of anticoagulants; I10 Essential (primary) hypertension; Z86.73 Personal history of transient ischemic attack (TIA), and cerebral infarction without residual deficits

== ENCOUNTER 2017-07-16 12:20 | Emergency (ER) | payer MEDICARE, OTHER ==
[2017-07-16] MEDS ORDERED: NORMAL SALINE 1,000 ML IV ONE (13:16)
[2017-07-16] MEDS ORDERED: MORPHINE SULFATE 2 MG/ML DISP.SYRIN IV ONE ×2 (13:17→14:52)
[2017-07-16 13:29] LABS: Hematocrit 39.8 % (37.0-47.0); Hemoglobin 12.2 gm/dL (12.5-16.0); Mean Cell Volume 78.8 fl (78-100); Mean Corpuscular Hemoglobin 24.2 pg (27-31); Mean Corpuscular Hgb Conc 30.7 g/dl (32-36); Mean Platelet Volume 9.4 fl (6.0-9.5); Neutrophil # 15.4 K/mm3 (1.3-6.0); Neutrophil % 83.2 % (42-75.0); Platelet Count 480 K/mm3 (150-450); Red Blood Count 5.05 M/mm3 (4.2-5.4); Red Cell Distribution Width 17.7 % (11.5-14.0); White Blood Count 18.5 K/mm3 (4.0-10.5)
[2017-07-16 13:54] LABS: Urine Bilirubin Negative (NEGATIVE); Urine Blood Negative /ul (NEGATIVE); Urine Ketone Negative (NEGATIVE); Urine Nitrite Negative (NEGATIVE); Urine Protein 30 mg/dL (NEGATIVE); Urine Specific Gravity >=1.030 SP.GR. (1.005-1.010); Urine Urobilinogen Normal (NORMAL)
[2017-07-16] MEDS ORDERED: MORPHINE SULFATE 2 MG/ML DISP.SYRIN ONE ×2 (14:01→14:54)
[2017-07-16 14:03] LABS: Albumin * 4.3 gm/dl (3.4-5.0); Anion Gap 16.8 mmol/L (6.8-13.8); BUN/Creatinine Ratio 9.1 (9.0-21.6); Bilirubin, Total 0.5 mg/dL (0.0-1.1); Calcium * 9.6 mg/dL (7.9-10.9); Carbon Dioxide 25.9 mmol/L (24-32.6); Potassium 3.7 mmol/L (3.4-4.6); Total Protein 8.1 gm/dL (6.2-8.2)
[2017-07-16 14:05] LABS: Urine Appearance Clear; Urine Bacteria 1+; Urine Color Yellow; Urine RBC None Seen /hpf (0-5)
[2017-07-16] MEDS ORDERED: DIATRIZOATE MEGLUMINE, SODIUM 30 ML BTL PO ONE (14:24)
[2017-07-16] MEDS ORDERED: DIATRIZOATE MEGLUMINE, SODIUM 30 ML BTL ONE (14:32)
[2017-07-16 17:04] VITALS: BP 138/68
--- NOTE | 2017-07-16 17:25 | ERNOTE ---
Abdominal HPI - Narrative Date of Service: 07/16/17 - General Chief Complaint: Abdominal Pain Time Seen by Provider: 07/16/17 13:05 Source: patient Exam Limitations: no limitations - Immun/Allergies/Home Medications Immunizatons: IMMUNIZATION HX Immunizations Up to Date Yes History of Influenza Vaccine No Hx Pneumococcal Vaccination Yes Allergies/Adverse Reactions: Allergies No Known Allergies Allergy (Verified 07/16/17 12:38) Home Medications: HOME MEDICATIONS Lisinopril [Zestril] 40 mg PO DAILY 11/29/16 [Last Taken Unknown] Omeprazole 40 mg PO DAILY 11/29/16 [Last Taken Unknown] Sertraline HCl [Zoloft] 100 mg PO DAILY 11/29/16 [Last Taken Unknown] Rivaroxaban [Xarelto] 10 mg PO DAILY 01/28/17 [Last Taken Unknown] Ondansetron [Zofran Odt] 4 mg PO Q4H PRN #10 tab 02/23/17 [Last Taken Unknown] Amox Tr/Potassium Clavulanate [Augmentin 875-125 Tablet] 875 mg PO Q12H #20 tab 07/16/17 [Last Taken Unknown] Gabapentin 300 mg PO TID 07/16/17 [Last Taken Unknown] HYDROcodone/ACETAMINOPHEN [[place] 5-325 Tablet] 1 tab PO Q8H PRN #8 tab 07/16/17 [Last Taken Unknown] Ondansetron [Zofran Odt] 4 mg PO Q8H PRN #12 tab 07/16/17 [Last Taken Unknown] - History of Present Illness Narrative: Patient presents with 2 days of abdominal pain, vomiting, diarrhea. he went to her doctor today and vomited in the room so was sent here. She relates several episodes of vomiting with non-bloody watery diarrhea. Upper abdominal pain with this. She relates abdominal pain "more days than not" but this seems worse than usual. She is s/p cholecystectomy and appendectomy. She denies CP or SOB. No fever or clear sick contacts, although I have seen several people with GI illness. She denies dysuria. Sx can be severe. Nothing clearly makes it better or worse. Her PCP was concerned about pancreatitis so she was sent here. Timing: constant Quality: sharpness Activities at Onset: none Modifying Factors - (Improves): Present: other - nothing Modifying Factors - (Worsens): Present: other - nothing Associated Symptoms: Present: nausea, vomiting. Absent: chest pain, diarrhea- gross blood, fever/chills, shortness of breath, weakness Prior Abdominal Problems: Present: similar symptoms Prior Treatment: Present: recently seen Review of Systems - Review of Systems Constitutional: Absent: fever ENT: Absent: sore throat Respiratory: Absent: shortness of breath Cardiology: Absent: chest pain Gastrointestinal/Abdominal: Present: See HPI Genitourinary: Absent: dysuria Skin: Absent: rash Neurological: Absent: weakness - Patient's Past Medical History Patient History - Medical: Anxiety, Chronic Pain, Depression, Kidney stone, Migraines, Renal Disease Patient History - Cardiac/Respiratory: CVA/Stroke, Hypertension, TIA Patient History - Cancer: No Hx of Cancer Patient History - Surgical Procedures: Appendectomy, Back Surgery, Cholecystectomy, Hysterectomy Patient History - Other: None LMP (females 10-50): hysterectomy - Family History Mother Family History - Cardiac/Respiratory: No pertinent hx dad Family History - Medical: Diabetes Type 2 Family History - Cardiac/Respiratory: No pertinent hx - Social History Living Situations: home Abuse History: No History of abuse Psych History: Hx of Anxiety, Hx of Depression, Current tx/ever been on anti- depressants or anti-anxiety meds Smoking Status: Current every day smoker Alcohol Use: none Drug Use: none - Immunizations Immunizations Up to Date: Yes Hx Pneumococcal Vaccination: Yes History of Influenza Vaccine: No Physical Exam - Physical Exam General Appearance: Present: alert, no apparent distress Head Exam: Present: normal inspection, no evidence of injury Eye Exam: Normal inspection: bilateral, PERRL: bilateral Ears, Nose, Throat: Present: normal ENT inspection. Absent: dry mucous membranes Neck: Present: normal inspection, nontender Respiratory: Present: no respiratory distress, normal breath sounds, no accessory muscle use, lungs clear Cardiovascular/Chest: Present: regular rate, rhythm Gastrointestinal/Abdominal: Present: normal bowel sounds, nondistended, soft, other - mild diffuse upper abdominal tendenress to palpation. No peritoneal signs. No guarding or rebound. This is a non-surgical exam. Back Exam: Present: other - no CVA tenderness. Absent: CVA tenderness (R), CVA tenderness (L) Extremity Exam: Present: normal inspection Neurological Exam: Present: alert, normal mood/affect, no motor/sensory deficits Skin Exam: Present: normal color, warm/dry ED Progress - Results and Orders Patient's Lab Results:: I have reviewed the patient's lab results. - Vital Signs Patient's Vital Signs:: I have reviewed the patient's vital signs. Vital Signs: Vital Signs 07/16/17 07/16/17 07/16/17 12:25 12:45 13:00 Temperature 36.2 C L 36.2 C L Pulse Rate 90 89 91 Respiratory 16 14 Rate Blood Pressure 146/84 137/78 140/81 O2 Sat by Pulse 100 100 100 Oximetry 07/16/17 07/16/17 07/16/17 13:30 14:00 14:32 Temperature Pulse Rate 87 87 67 Respiratory 16 Rate Blood Pressure 136/78 128/61 134/66 O2 Sat by Pulse 99 100 98 Oximetry 07/16/17 07/16/17 07/16/17 15:00 15:30 16:00 Temperature Pulse Rate 84 84 88 Respiratory Rate Blood Pressure 165/86 157/85 147/71 O2 Sat by Pulse 98 96 96 Oximetry 07/16/17 17:01 Temperature Pulse Rate 81 Respiratory 14 Rate Blood Pressure 138/68 O2 Sat by Pulse 96 Oximetry - CT/Ultrasound CT/Ultrasound Narrative: I reviewed official radiology CT report. - Progress/Reassessment Chief Complaint: Abdominal Pain Progress Note-Subjective: 07/16/17 17:13 Patient feeling much improved at re-check. She has UTI but no suggestion of sepsis, toxicity, kidney stone, pancreatitis or pyelonephritis. She is stable, improved, non-toxic and in no distress. IV ABx given. IV fluids given with no further vomiting. I discussed options, she would like to go home. I feel this is reasonable with close f/u. Will given ABx and a few pain medications for her. I discussed warning signs and reasons to return as well as the need for close f/u. Departure Clinical Impression: UTI (urinary tract infection), Vomiting, Diarrhea - Departure Disposition: Home self-care Condition: Stable Instructions: Urinary Tract Infection, Adult, [id number] Additional Instructions: Rest. Fluids. Antibiotics as directed. Follow-up tomorrow for a re-check with your doctor. Return here for fever, vomiting, increased pain or if your condition worsens or changes in any way. Referrals: Oetken,Irene Y, DO [Primary Care Provider] - Prescriptions: Amox Tr/Potassium Clavulanate [Augmentin 875-125 Tablet] 875 mg PO Q12H #20 tab HYDROcodone/ACETAMINOPHEN [[place] 5-325 Tablet] 1 tab PO Q8H PRN #8 tab PRN Reason: Pain Ondansetron [Zofran Odt] 4 mg PO Q8H PRN #12 tab PRN Reason: Nausea
== END 2017-07-16 17:36 | disposition home or self-care (01) ==
LOC: ER 12:20
DX: N39.0 Urinary tract infection, site not specified (principal); R11.10 Vomiting, unspecified; R19.7 Diarrhea, unspecified; I10 Essential (primary) hypertension; Z87.442 Personal history of urinary calculi; F41.9 Anxiety disorder, unspecified; I25.2 Old myocardial infarction

== ENCOUNTER 2017-07-23 15:12 | Emergency (ER) | payer MEDICARE, OTHER ==
--- NOTE | 2017-07-23 15:47 | ERNOTE ---
Lower Extremity HPI - Narrative Date of Service: 07/23/17 - General Lower Extremities Pain: ankle: right Time Seen by Provider: 07/23/17 15:38 Source: patient - Immun/Allergies/Home Medications Immunizations: IMMUNIZATION HX Immunizations Up to Date Yes History of Influenza Vaccine No Hx Pneumococcal Vaccination Yes Allergies/Adverse Reactions: Allergies Allergy/AdvReac Type Severity Reaction Status Date / Time No Known Allergies Allergy Verified 07/23/17 15:28 Home Medications: HOME MEDICATIONS Lisinopril [Zestril] 40 mg PO DAILY 11/29/16 [Last Taken Unknown] Omeprazole 40 mg PO DAILY 11/29/16 [Last Taken Unknown] Sertraline HCl [Zoloft] 100 mg PO DAILY 11/29/16 [Last Taken Unknown] Rivaroxaban [Xarelto] 10 mg PO DAILY 01/28/17 [Last Taken Unknown] Gabapentin 300 mg PO TID 07/16/17 [Last Taken Unknown] Ibuprofen [Motrin] 600 mg PO TID PRN #30 tab 07/23/17 [Last Taken Unknown] - History of Present Illness Narrative: Patient is a 56-year-old lady who presents to the emergency room complaining of right ankle pain that started this morning. Apparently she tripped over her purse and reported twisting her right ankle. She points to the medial and lateral malleolus area and also the navicular area of her ankle. Diffuse ankle pain. He denies any swelling, redness. He reports having some difficulty up her weight on her right ankle. Occurred: this morning Location of Incident: home Method of Injury: Reports: fell, twisted Reason for Fall: Reports: tripped Loss of Consciousness: Reports: no loss of consciousness Other Injuries: Reports: none Review of Systems - Review of Systems Constitutional: Present: See HPI Musculoskeletal: Present: joint pain All Other Systems: All systems neg except as marked - Patient's Past Medical History Patient History - Medical: Anxiety, Chronic Pain, Depression, Kidney stone, Migraines, Renal Disease Patient History - Cardiac/Respiratory: CVA/Stroke, Hypertension, TIA Patient History - Cancer: No Hx of Cancer Patient History - Surgical Procedures: Appendectomy, Back Surgery, Cholecystectomy, Hysterectomy Patient History - Other: None LMP (females 10-50): Menopausal - Family History Mother Family History - Cardiac/Respiratory: No pertinent hx dad Family History - Medical: Diabetes Type 2 Family History - Cardiac/Respiratory: No pertinent hx - Social History Living Situations: alone Abuse History: No History of abuse Psych History: Hx of Anxiety, Hx of Depression, Current tx/ever been on anti- depressants or anti-anxiety meds - Immunizations Immunizations Up to Date: Yes Hx Pneumococcal Vaccination: Yes History of Influenza Vaccine: No Physical Exam - Physical Exam General Appearance: Present: wd/wn, alert, mild distress Head Exam: Present: normal inspection, no evidence of injury Extremity Exam: Present: other - inspection of the right ankle when compared to the left appear unremarkable. There is no swelling noted. There is no redness noted. She appears to be diffusely tender at the bimalleolar right ankle region. Palpation of the navicular region is also tender. However anterior posterior maneuver is negative for any translation. Neurological Exam: Present: alert, oriented, no motor/sensory deficits, survey associate II- XII nml as tested Skin Exam: Present: normal color Lymphatic Exam: Present: no adenopathy ED Progress - Vital Signs Patient's Vital Signs:: I have reviewed the patient's vital signs. Vital Signs: Vital Signs 07/23/17 07/23/17 15:25 15:29 Temperature 36.8 C Pulse Rate 89 86 Respiratory 15 15 Rate Blood Pressure 162/73 O2 Sat by Pulse 96 97 Oximetry - X-Ray X-Ray #1 X-Ray: ankle Interpretation: Interp. by me, Reviewed by me - Progress/Reassessment Chief Complaint: Lower Extremity Pain/ Injury Progress:: Unchanged - Transfer of Care Expected Disposition: Discharge Departure Clinical Impression: Right ankle sprain Qualifiers: Encounter type: initial encounter Involved ligament of ankle: unspecified ligament Qualified Code(s): S93.401A - Sprain of unspecified ligament of right ankle, initial encounter - Departure Disposition: Home self-care Condition: Stable Instructions: Ankle Sprain, [id number] Prescriptions: Ibuprofen [Motrin] 600 mg PO TID PRN #30 tab PRN Reason: Pain
[2017-07-23] MEDS ORDERED: ACETAMINOPHEN 325 MG TABLET PO ONE (16:14)
[2017-07-23] MEDS ORDERED: ACETAMINOPHEN 325 MG TABLET ONE (16:19)
[2017-07-23 16:27] VITALS: BP 157/78
== END 2017-07-23 16:27 | disposition home or self-care (01) ==
LOC: ER 15:12
DX: S93.401A Sprain of unspecified ligament of right ankle, initial encounter (principal); Z87.442 Personal history of urinary calculi; Z86.73 Personal history of transient ischemic attack (TIA), and cerebral infarction without residual deficits; F41.9 Anxiety disorder, unspecified; Z79.01 Long term (current) use of anticoagulants; W22.8XXA Striking against or struck by other objects, initial encounter; Y92.009 Unspecified place in unspecified non-institutional (private) residence as the place of occurrence of the external cause

== ENCOUNTER 2017-09-27 14:26 | Emergency (ER) | payer MEDICAID, MEDICARE ==
[2017-09-27] MEDS: NORMAL SALINE 1,000 ML IV PRN (14:47)
[2017-09-27] MEDS ORDERED: PROMETHAZINE HCL 25 MG/ML AMPUL ONE ×2 (14:48→14:51)
[2017-09-27] MEDS: PROMETHAZINE HCL 25 MG/ML AMPUL IM ONE (14:53)
[2017-09-27 15:06] LABS: Hematocrit 33.7 % (37.0-47.0); Hemoglobin 9.9 gm/dL (12.5-16.0); Mean Cell Volume 78.6 fl (78-100); Mean Corpuscular Hemoglobin 23.1 pg (27-31); Mean Corpuscular Hgb Conc 29.4 g/dl (32-36); Neutrophil # 9.4 K/mm3 (1.3-6.0); Neutrophil % 83.4 % (42-75.0); Platelet Count 296 K/mm3 (150-450); Red Blood Count 4.29 M/mm3 (4.2-5.4); Red Cell Distribution Width 17.6 % (11.5-14.0); White Blood Count 11.2 K/mm3 (4.0-10.5)
[2017-09-27 15:19] LABS: Albumin * 3.5 gm/dl (3.4-5.0); Anion Gap 18.5 mmol/L (6.8-13.8); Bilirubin, Total 0.5 mg/dL (0.0-1.1); Ca. Corrected For Albumin 9.1 mg/dL (8.4-10.2); Carbon Dioxide 20.6 mmol/L (24-32.6); Potassium 4.1 mmol/L (3.4-4.6); Total Protein 7.2 gm/dL (6.2-8.2)
[2017-09-27 16:15] LABS: Urine Appearance Clear; Urine Color Yellow
[2017-09-27 16:16] LABS: Urine Bacteria None Seen; Urine Bilirubin 1 mg/dl (NEGATIVE); Urine Blood Negative /ul (NEGATIVE); Urine Ketone Large mg/dL (NEGATIVE); Urine Nitrite Negative (NEGATIVE); Urine Protein Negative (NEGATIVE); Urine RBC None Seen /hpf (0-5); Urine Urobilinogen Normal (NORMAL); Urine WBC None Seen /hpf (0-5)
[2017-09-27] MEDS: NORMAL SALINE 1,000 ML IV ONE (16:33)
[2017-09-27] MEDS ORDERED: oxyCODONE HCL/ACETAMINOPHEN 1 TAB TABLET ONE ×2 (16:35→16:38)
[2017-09-27] MEDS: oxyCODONE HCL/ACETAMINOPHEN 1 TAB TABLET PO ONE (16:37)
--- NOTE | 2017-09-27 17:23 | ERNOTE ---
Medical Problem HPI - Narrative Date of Service: 09/27/17 - General Chief Complaint: Nausea/Vomiting Time Seen by Provider: 09/27/17 14:38 Source: patient Exam Limitations: no limitations - Immun/Allergies/Home Medications Immunizations: IMMUNIZATION HX Immunizations Up to Date Yes History of Influenza Vaccine No Hx Pneumococcal Vaccination No Allergies/Adverse Reactions: Allergies No Known Allergies Allergy (Verified 09/06/17 12:05) Home Medications: HOME MEDICATIONS Lisinopril [Zestril] 40 mg PO DAILY 11/29/16 [Last Taken Unknown] Omeprazole 40 mg PO DAILY 11/29/16 [Last Taken Unknown] Sertraline HCl [Zoloft] 100 mg PO DAILY 11/29/16 [Last Taken Unknown] Rivaroxaban [Xarelto] 10 mg PO DAILY 01/28/17 [Last Taken Unknown] Gabapentin 300 mg PO TID 07/16/17 [Last Taken Unknown] Ibuprofen [Motrin] 600 mg PO TID PRN #30 tab 07/23/17 [Last Taken Unknown] Cyclobenzaprine HCl [Flexeril] 10 mg PO TID PRN #30 tab 09/06/17 [Last Taken Unknown] Naproxen [Naprosyn] 375 mg PO BID #30 tab 09/06/17 [Last Taken Unknown] traMADol HCL [Ultram] 50 mg PO QID PRN #20 tablet 09/06/17 [Last Taken Unknown] Promethazine HCl [Phenergan (Promethazine)] 25 mg PO Q6H PRN #20 tab 09/27/17 [ Last Taken Unknown] oxyCODONE HCL/ACETAMINOPHEN [Percocet 5 MG/325 MG] 1 tab PO TID PRN #15 tablet 09/27/17 [Last Taken Unknown] - History of Present History Narrative: Patient presents the the ED for nausea, vomiting and diarrhea. She relates that she began to feel ill around 2pm yesterday. Around dinner she began to feel worse and vomited, she then developed diarrhea. This is non-bloody. She has some abdominal cramps with this. No localizing cramps. No fever. She relates that she has continued to have some vomiting, but mostly diarrhea now. She also tells me her back hurts and that she has run out of her percocet that she takes. She ran out of her Percocet yesterday. She is on that for her back pain and is requesting that. No CP or SOB. Timing: constant Severity: moderate Modifying Factors - (Improves): Present: other - nothing Modifying Factors - (Worsens): Present: other - nothing Review of Systems - Review of Systems Constitutional: Absent: fever ENT: Absent: sore throat Respiratory: Absent: shortness of breath Cardiology: Absent: chest pain Gastrointestinal/Abdominal: Present: See HPI Genitourinary: Absent: dysuria Musculoskeletal: Present: back pain Skin: Absent: rash Neurological: Absent: weakness - Patient's Past Medical History Patient History - Medical: Anxiety, Chronic Pain, Depression, Kidney stone, Migraines, Renal Disease Patient History - Cardiac/Respiratory: CVA/Stroke, Hypertension, TIA Patient History - Cancer: No Hx of Cancer Patient History - Surgical Procedures: Appendectomy, Back Surgery, Cholecystectomy, Hysterectomy Patient History - Other: None LMP (females 10-50): Menopausal - Family History Mother Family History - Cardiac/Respiratory: No pertinent hx dad Family History - Medical: Diabetes Type 2 Family History - Cardiac/Respiratory: No pertinent hx - Social History Living Situations: home Abuse History: No History of abuse Psych History: Hx of Anxiety, Hx of Depression, Current tx/ever been on anti- depressants or anti-anxiety meds Alcohol Use: sober Drug Use: none - Immunizations Immunizations Up to Date: Yes Hx Pneumococcal Vaccination: No History of Influenza Vaccine: No Physical Exam - Physical Exam General Appearance: Present: alert, no apparent distress Head Exam: Present: normal inspection, no evidence of injury Eye Exam: Normal inspection: bilateral, PERRL: bilateral Ears, Nose, Throat: Present: normal ENT inspection. Absent: dry mucous membranes Neck: Present: normal inspection Respiratory: Present: no respiratory distress, normal breath sounds, no accessory muscle use, lungs clear Cardiovascular/Chest: Present: regular rate, rhythm, normal peripheral pulses Gastrointestinal/Abdominal: Present: normal bowel sounds, nontender, nondistended, soft, other - I cannot identift any localizing tenderness in the abdomen. She has some off and on intermittent cramps but no specific tenderness. Back Exam: Present: normal range of motion Extremity Exam: Present: normal inspection Neurological Exam: Present: alert, no motor/sensory deficits Skin Exam: Present: normal color, warm/dry ED Progress - Results and Orders Patient's Lab Results:: I have reviewed the patient's lab results. - Vital Signs Patient's Vital Signs:: I have reviewed the patient's vital signs. Vital Signs: Vital Signs 09/27/17 09/27/17 09/27/17 14:28 15:45 16:09 Temperature 36.8 C 36.8 C Pulse Rate 69 69 Respiratory 14 Rate Blood Pressure 154/71 142/59 135/59 O2 Sat by Pulse 97 98 Oximetry - Progress/Reassessment Chief Complaint: Nausea/Vomiting Progress Note-Subjective: 09/27/17 17:19 Patient was much improved after IV fluids and phenergan. She asked for a Percocet and this was given. No reproducible tenderness in the abdomen. No suggestion of surgical abdomen. Likely viral process. No stool production here. She declines rectal. She has not visualized blood and her HGB is at a level it has been in the past. I offered her observation but she declines this and wishes to go home. She tells me she is out of her Percocet so I will give her enough to get through until Thursday with her PCP. SHe declines addition al observation and elects to go home. No clear evidence of acute life threat. I discussed warning signs and reasons to return as well as the need for close f/ u. Departure Clinical Impression: Vomiting and diarrhea, Chronic back pain - Departure Disposition: Home self-care Condition: Stable Instructions: Nausea, Adult Additional Instructions: Rest. FLuids. Clear liquids for the next 24 hours. Keep your appointment Thursday with your doctor. I have given you a small number of your home pain medications since you are out. Return if you change your mind about observation , develop blood in your stool, abdominal pain, fever or if your condition worsens or changes in any way. Prescriptions: oxyCODONE HCL/ACETAMINOPHEN [Percocet 5 MG/325 MG] 1 tab PO TID PRN #15 tablet PRN Reason: Pain Promethazine HCl [Phenergan (Promethazine)] 25 mg PO Q6H PRN #20 tab PRN Reason: nausea/vomiting
[2017-09-29 08:27] VITALS: BP 132/57
== END 2017-09-27 17:40 | disposition home or self-care (01) ==
LOC: ER 14:26 → EDSTATUS 18:15
DX: R11.10 Vomiting, unspecified (principal); R19.7 Diarrhea, unspecified; M54.9 Dorsalgia, unspecified; G89.29 Other chronic pain

== ENCOUNTER 2017-10-10 06:03 | Emergency (ER) | payer MEDICAID, MEDICARE ==
--- NOTE | 2017-10-10 06:16 | ERNOTE ---
Back Pain ER HPI Date of Service: 10/10/17 Presenting Symptoms: hx chronic back pain Time Seen by Provider: 10/10/17 06:25 Source: patient Exam Limitations: no limitations Immunizations: IMMUNIZATION HX Immunizations Up to Date Yes History of Influenza Vaccine No Hx Pneumococcal Vaccination No Allergies/Adverse Reactions: Allergies No Known Allergies Allergy (Verified 09/06/17 12:05) Home Medications: HOME MEDICATIONS Lisinopril [Zestril] 40 mg PO DAILY 11/29/16 [Last Taken Unknown] Omeprazole 40 mg PO DAILY 11/29/16 [Last Taken Unknown] Sertraline HCl [Zoloft] 100 mg PO DAILY 11/29/16 [Last Taken Unknown] Gabapentin 300 mg PO TID 07/16/17 [Last Taken Unknown] Ibuprofen [Motrin] 600 mg PO TID PRN #30 tab 07/23/17 [Last Taken Unknown] Cyclobenzaprine HCl [Flexeril] 10 mg PO TID PRN #30 tab 09/06/17 [Last Taken Unknown] oxyCODONE HCL/ACETAMINOPHEN [Percocet 10-325 mg Tablet] 1 each PO TID PRN #6 tablet 10/10/17 [Last Taken Unknown] Narrative: 56 year old that has had chronic back pain for several years and sciatica. Hx of remote CVA with residual right sided hemiparesis. Seen in the ED 09/27/17 for back pain and vomiting. On the last visit she had claimed to have run out of her Percocet. 09/06/17 after being discharged from the ED fell in the parking lot which aggravated the back pain. Recently had an MRI done (10/07/17), which demonstrated minimal bulging discs. A few hours ago the patient called the ED enquiring about whether she should be seen? As per the patient she was not able to make it to her physicians office on Thursday so that a prescription for Percocette (30 day supply) could be picked up. The patient has insinuated that she would need to have a Percocette prescription for home use. Date (Duration): 10/10/17 Time (Timing): 06:47 Timing: Reports: constant Quality/Severity: Reports: severe Location of pain: Reports: lower back Activities at Onset: Reports: activity Modifying Factors - (Improves): Reports: other - Percocette Modifying Factors - (Worsens): Reports: other - exertion Prior Treament: Reports: treated by physician Review of Systems - Review of Systems Constitutional: Present: no symptoms reported EYE: Present: no symptoms reported ENT: Present: no symptoms reported Respiratory: Present: no symptoms reported Cardiology: Present: no symptoms reported Gastrointestinal/Abdominal: Present: no symptoms reported Genitourinary: Present: no symptoms reported Musculoskeletal: Present: no symptoms reported Skin: Present: no symptoms reported - Patient's Past Medical History Patient History - Medical: Anxiety, Chronic Pain, Depression, Kidney stone, Migraines, Renal Disease Patient History - Cardiac/Respiratory: CVA/Stroke, Hypertension, TIA Patient History - Cancer: No Hx of Cancer Patient History - Surgical Procedures: Appendectomy, Back Surgery, Cholecystectomy, Hysterectomy Patient History - Other: None - Family History Mother Family History - Cardiac/Respiratory: No pertinent hx dad Family History - Medical: Diabetes Type 2 Family History - Cardiac/Respiratory: No pertinent hx - Social History Abuse History: No History of abuse Psych History: Hx of Anxiety, Hx of Depression, Current tx/ever been on anti- depressants or anti-anxiety meds - Immunizations Immunizations Up to Date: Yes Hx Pneumococcal Vaccination: No History of Influenza Vaccine: No Physical Exam - Physical Exam General Appearance: Present: no apparent distress Head Exam: Present: normal inspection Eye Exam: Normal inspection: bilateral, PERRL: bilateral, EOMI: bilateral Ears, Nose, Throat: Present: normal ENT inspection Neck: Present: normal inspection Respiratory: Present: no respiratory distress Cardiovascular/Chest: Present: regular rate, rhythm Gastrointestinal/Abdominal: Present: nondistended Back Exam: Present: vertebral tenderness - at the lumbar spine Extremity Exam: Present: normal inspection Neurological Exam: Present: alert, oriented, normal mood/affect Skin Exam: Present: normal color ED Progress - Vital Signs Patient's Vital Signs:: I have reviewed the patient's vital signs. - Progress/Reassessment Progress:: Unchanged Progress Note-Subjective: 10/10/17 06:56 Given Torodol 30 mg and Tylenol 1 gram po. 10/10/17 06:59 The patient may be drug seeking? Given a small prescription for Percocette ( Disp # 6) and given Decadron 6 mg IM. Given information on pain management. Departure Clinical Impression: Chronic low back pain with right-sided sciatica - Departure Disposition: Home self-care Condition: Fair Instructions: Back Pain, Adult Print Language: Beninese Additional Instructions: See your doctor on Thursday to obtain your prescription for Percocette. Call pain management for an appointment: [address] [place] [address] [phone] Referrals: Daphne June DO [Primary Care Provider] - Prescriptions: oxyCODONE HCL/ACETAMINOPHEN [Percocet 10-325 mg Tablet] 1 each PO TID PRN #6 tablet PRN Reason: Pain
[2017-10-10 06:25] VITALS: BP 175/90
[2017-10-10] MEDS ORDERED: KETOROLAC TROMETHAMINE 30 MG/ML VIAL IM ONE (06:37)
[2017-10-10] MEDS ORDERED: ACETAMINOPHEN 500 MG TABLET PO ONE (06:38)
[2017-10-10] MEDS ORDERED: KETOROLAC TROMETHAMINE 30 MG/ML VIAL ONE (06:41)
[2017-10-10] MEDS ORDERED: DEXAMETHASONE SODIUM PHOSPHATE 10 MG/ML VIAL IM ONE (06:57)
== END 2017-10-10 07:05 | disposition home or self-care (01) ==
LOC: ER 06:03
DX: Z87.442 Personal history of urinary calculi; M54.41 Lumbago with sciatica, right side; I10 Essential (primary) hypertension; G89.29 Other chronic pain; Z86.73 Personal history of transient ischemic attack (TIA), and cerebral infarction without residual deficits; F41.9 Anxiety disorder, unspecified

== ENCOUNTER 2019-03-10 10:24 | Inpatient (IN) ==
[2019-03-10] MEDS ORDERED: ALBUTEROL SULFATE 2.5 MG/0.5 ML VIAL.NEB IH PRN (12:05)
[2019-03-10] MEDS ORDERED: ACETAMINOPHEN 500 MG TABLET PO PRN (12:20)
--- NOTE | 2019-03-10 13:00 | HP ---
Chief Complaint - Chief Complaint Date of Service: 03/10/19 Time of Service: 11:00 Chief Complaint: abdominal pain, diarrhea, fever, nausea without vomiting History of Present Illness: Marixa was in the ER Thursday and her abdominal pain started 3-4 days ago. She has had watery diarrhea. She is weak and appears acutely ill. She had a CT of the abdomen 3 days ago which was non-diagnostic. She is worse today and will requre restudy. I will admit her to observation status pending lab and imaging data. 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 Flores about 1 week ago. Now it is hot, red, swollen and painful. Chronic cough (Chronic) Has had a cough for the past several months. It is a dry hacking cough that she cannot get rid of. In reviewing her medicine she is on 40 mg of lisinopril daily and I suspect that she has a 'Pril cough. Change to valsartan. Panic attack (Acute) IBS (irritable bowel syndrome) (Acute) Depression (Chronic) increase sertraline to 100 mg daily. Status post fall (Acute) Swelling of right knee joint (Acute) Knee pain, right (Acute) Piriformis syndrome of right side (Chronic) Anxiety (Chronic) Piriformis syndrome (Acute) Back pain with sciatica (Chronic) Iron deficiency (Chronic) Vitamin D deficiency (Acute) Chronic pain (Chronic) Normocytic anemia (Chronic) Abdominal pain (Acute) start ranitidine 150 mg BID. Chest pain (Acute) Upper respiratory infection (Acute) Bronchitis (Acute) CVA (cerebral infarction) (Chronic) Head ache (Acute) Migraine (Chronic) Contusion of chest (Acute) Toe fracture, right (Acute) Vomiting (Acute) Ileitis (Chronic) Chronic low back pain (Chronic) Hypokalemia (Resolved) Iron (Fe) deficiency anemia (Chronic) Multiple rib fractures (Acute) Back pain (Acute) Laceration of scalp without complication (Acute) Contusion of head (Acute) Dysuria (Acute) Low back pain (Acute) Canker sores oral (Acute) Cold sore (Acute) Muscle spasm (Acute) Back pain (Acute) Sprain of ribs, initial encounter (Acute) Sinusitis (Acute) Elevated liver enzymes (Acute) Right flank pain (Acute) UTI (urinary tract infection) (Acute) Right lower quadrant abdominal pain (Acute) Acute thoracic back pain (Acute) Fall at home (Acute) Dehydration symptoms (Resolved) Syncope due to orthostatic hypotension (Acute) Fibula upper end fracture (Acute) Diarrhea (Acute) Right ankle sprain (Acute) Sciatica (Acute) Fall (Acute) Vomiting and diarrhea (Acute) Chronic back pain (Chronic) Chronic low back pain with right-sided sciatica (Acute) Sciatica of right side (Acute) Acute renal failure (Acute) Enteritis (Acute) Pyelonephritis, acute (Acute) Dehydration (Resolved) SIRS (systemic inflammatory response syndrome) (Acute) Hypertension (Chronic) ROSA (acute kidney injury) (Resolved) Crohn's disease (Suspected) Aphthous ulcer of mouth (Chronic) B12 deficiency (Acute) Chronic abdominal pain (Acute) Constipation (Acute) CVA (cerebral vascular accident) Onset Date: ~07/2014 Colonoscopy Onset Date: Unknown Refused Crohns disease Bruising Onset Date: 01/24/14 Chronic low back pain Onset Date: 10/08/13 Cystitis Onset Date: Unknown Essential hypertension Onset Date: Unknown Fasciitis Onset Date: 03/11/14 Left trapezius GERD (gastroesophageal reflux disease) Onset Date: 11/02/13 Hx of renal colic Onset Date: 11/05/13 Kidney stone Onset Date: ~12/2012 [place] stent placed for 1 week Spondylisthesis Onset Date: Unknown TMJ (temporomandibular joint disorder) Onset Date: 03/11/14 Vitamin D deficiency Onset Date: 02/18/14 Chest pain Onset Date: 01/24/14 Left ankle sprain Onset Date: ~03/2017 Surgical History: Surgical History (Updated 02/02/19 @ 11:44 by Krys Flores MD) Cystoureteroscopy w/stent placement with Lithoclast 10/2012 Renal stone. H/O colonoscopy Onset Date: 05/14/18 [facility]-Dr. Buenrostro polyps History of back surgery 1 reno, 6 pins 05/2008 History of esophagogastroduodenoscopy Onset Date: 05/14/18 [facility]-Dr Buenrostro-polyps Hx of appendectomy 1976 Hx of cystoscopy w/stent removal. 10/2012 Renal stone [facility] Hx of hysterectomy Left one ovary. Unknown date. Hx of laminectomy Unknown Date Laminoplasty Family History: Family History (Updated 04/13/18 @ 11:09 by Kesha Cervantes [facility]) Brother Healthy adult male Daughter Kidney stone Father , Age 77 Mesothelioma Mother Cancer Ovarian Sister Healthy female Son Kidney stone Other Bruising CVA (cerebral vascular accident) Chest pain Chronic low back pain Cystitis Essential hypertension Fasciitis GERD (gastroesophageal reflux disease) Hx of renal colic Left ankle sprain Spondylisthesis TMJ (temporomandibular joint disorder) Vitamin D deficiency Social History: Preferred Language Swedish Smoking Status Former smoker Abuse History No History of abuse Psych History Hx of Anxiety,Hx of Depression,Currently on Meds (Last Reviewed 03/10/19 @ 10:36 by Shakila Vo [facility]) No Social History Section defined Review Of Systems (GEN) - Review of Systems Generalized/Overall Review: Present: Weakness, Fever, Malaise, Fatigue EENTM: Present: No Symptoms Reported Respiratory: Present: No Symptoms Reported Cardiac: Present: No Symptoms Reported Abdominal: Present: Nausea, Abdominal Pain, Diarrhea. Absent: Hematemesis, Melena, Bright blood from rectum Genitourinary: Present: Burning, Itching Musculoskeletal: Present: No Symptoms Reported Neurological: Present: No Symptoms Reported Skin: Present: No Symptoms Reported Endocrine: Present: No Symptoms Reported Immunizations: IMMUNIZATION HX Immunizations Up to Date Yes History of Influenza Vaccine Yes Hx Pneumococcal Vaccination Yes Allergies/Adverse Reactions: Allergies Allergy/AdvReac Type Severity Reaction Status Date / Time No Known Allergies Allergy Verified 03/10/19 10:35 Home Medications: HOME MEDICATIONS ranitidine 150 mg tablet 150 mg PO BID #180 tab 08/05/18 [Last Taken Unknown] amlodipine 10 mg tablet 10 mg PO DAILY #90 tab 10/15/18 [Last Taken Unknown] chlorthalidone 25 mg tablet 25 mg PO DAILY #90 tab 10/15/18 [Last Taken Unknown] albuterol sulfate HFA 90 mcg/actuation aerosol inhaler 1 inh IH Q6H PRN #8.5 g 11/09/18 [Last Taken Unknown] gabapentin 400 mg capsule 400 mg PO TID #90 cap 01/13/19 [Last Taken Unknown] sertraline 100 mg tablet 200 mg PO DAILY #180 tab 01/13/19 [Last Taken Unknown] valsartan 320 mg tablet 320 mg PO DAILY #90 tab 01/13/19 [Last Taken Unknown] Ondansetron [Zofran Odt] 4 mg PO Q6H PRN #10 tab 02/01/19 [Last Taken Unknown] silver sulfadiazine 1 % topical cream 1 applic TP BID #25 g 02/02/19 [Last Taken Unknown] fluconazole 200 mg tablet 200 mg PO .COMPLEX #2 tab 03/04/19 [Last Taken Unknown] hydrocodone 7.5 mg-acetaminophen 325 mg tablet 1 tab PO Q6H PRN #60 tab 03/04/19 [Last Taken Unknown] sulfamethoxazole 800 mg-trimethoprim 160 mg tablet 1 tab PO BID #14 tab 03/04/19 [Last Taken Unknown] Exam - Exam Constitutional: Present: Alert, Oriented x3, Cooperative, Well developed, Well nourished, No distress ENT Exam: Present: normal ENT inspection, hearing grossly normal, pharynx normal, TMs normal Eye Exam: bilateral eye: normal inspection, PERRL, EOMI Neck: Present: non-tender, full range of motion, supple, normal inspection Back Exam: Present: normal inspection, no CVA tenderness, no vertebral tenderness Breasts: Present: Exam deferred Respiratory: Present: chest non-tender, lungs clear, normal breath sounds, no respiratory distress, no accessory muscle use Cardiovascular/Chest: Present: normal peripheral pulses, regular rate, rhythm, no chest tenderness, no edema, no gallop, no JVD, no murmur, no rub Peripheral Pulses: carotid (R): 2+, carotid (L): 2+, radial (R): 2+, radial (L): 2+ Abdomen: Present: soft, no hepatospenomegaly, no masses, tender, guarding, firm, negative Pacheco sign, distended, hypoactive. Absent: rebound tenderness, CVA tenderness /Rectal: Present: Exam deferred, External genitalia normal Extremity: Present: normal range of motion, non-tender, normal inspection, no pedal edema, no calf tenderness, normal capillary refill Skin Exam: Present: warm/dry, pallor Lymphatic: Present: no adenopathy Neurologic: Present: slimer II-XII nml as tested, normal cerebellar test, no motor/sensory deficits, alert, normal mood/affect, oriented x 3 Appearance: Present: appropriate appearance, appropriate insight, neat Eye contact: Present: cooperative, good eye contact Thoughts: Present: normal thought pattern, no apparent hallucination Assessment/Plan - Narrative Narrative: 1. Bolus rate rehydration 2. IV antibiotics -Cipro+Metronidazole 3. stools analysis 4. blood cultures 5. Repeat CT scan (suspect diverticulitis) 6. allow clear liquids since she has not been vomiting. - Assessment/Plan (1) Abdominal pain Problem: Acute (2) Diarrhea in adult patient Problem: Acute (3) Dehydration Problem: Acute (4) Nausea Problem: Acute (5) Fever Problem: Acute Qualifiers: Fever type: unspecified Qualified Code(s): R50.9 - Fever, unspecified
[2019-03-10] MEDS ORDERED: DIATRIZOATE MEGLUMINE, SODIUM 30 ML BTL PO ONE (13:01)
[2019-03-10] MEDS: NORMAL SALINE 1,000 ML IV PRN ×2 (13:19→17:14)
[2019-03-10] MEDS: MORPHINE SULFATE 4 MG/ML SYRG IV PRN ×5 (13:29→23:31)
[2019-03-10] MEDS: CIPROFLOXACIN IN 5 % DEXTROSE 400 MG/200 ML BAG IV SCH (13:34)
[2019-03-10] MEDS: DICYCLOMINE HCL 10 MG CAPSULE PO SCH ×3 (13:36→20:09)
[2019-03-10] MEDS: metroNIDAZOLE/SODIUM CHLORIDE 500 MG/100 ML BAG IV SCH ×2 (14:36→18:17)
[2019-03-10] MEDS ORDERED: 0.5 NORMAL SALINE 1,000 ML IV PRN (18:33)
[2019-03-10] MEDS: POTASSIUM CHLORIDE 20 MEQ in 0.5 NORMAL SALINE 1,000 ML IV SCH (19:11)
[2019-03-10] MEDS: ONDANSETRON 4 MG TAB.RAPDIS PO PRN (19:48)
[2019-03-10] MEDS: SILVER SULFADIAZINE 25 APPL JAR TP SCH (20:09)
[2019-03-10] MEDS: FAMOTIDINE 20 MG TABLET PO SCH (20:09)
[2019-03-10 21:57] LABS: Bacteria Many; Lymphocyte 0 % (20-51); Neutrophil 0 % (42-75); White Blood Count None Seen; Yeast None Seen
[2019-03-11] MEDS: CIPROFLOXACIN IN 5 % DEXTROSE 400 MG/200 ML BAG IV SCH ×2 (00:40→13:02)
[2019-03-11] MEDS: MORPHINE SULFATE 4 MG/ML SYRG IV PRN ×3 (05:14→11:09)
[2019-03-11] MEDS: metroNIDAZOLE/SODIUM CHLORIDE 500 MG/100 ML BAG IV SCH ×2 (05:19→09:10)
[2019-03-11] MEDS: ONDANSETRON 4 MG TAB.RAPDIS PO PRN (07:26)
[2019-03-11] MEDS ORDERED: NORMAL SALINE 500 ML IV ONE (07:34)
[2019-03-11] MEDS: LOSARTAN POTASSIUM 50 MG TABLET PO SCH (08:22)
[2019-03-11] MEDS: CHLORTHALIDONE 25 MG TABLET PO SCH (08:24)
[2019-03-11] MEDS: amLODIPine BESYLATE 10 MG TABLET PO SCH (08:24)
[2019-03-11] MEDS: SERTRALINE HCL 100 MG TABLET PO SCH (08:25)
[2019-03-11] MEDS: DICYCLOMINE HCL 10 MG CAPSULE PO SCH (08:25)
[2019-03-11] MEDS: SILVER SULFADIAZINE 25 APPL JAR TP SCH ×2 (08:25→20:54)
[2019-03-11] MEDS: FAMOTIDINE 20 MG TABLET PO SCH ×2 (08:25→20:54)
[2019-03-11] MEDS: POTASSIUM CHLORIDE 20 MEQ in 0.5 NORMAL SALINE 1,000 ML IV SCH ×3 (08:35→21:50)
[2019-03-11 09:26] LABS: Hematocrit 37.1 % (37.0-47.0); Hemoglobin 11.6 gm/dL (12.5-16.0); Mean Cell Volume 88.5 fl (78-100); Mean Corpuscular Hemoglobin 27.7 pg (27-31); Mean Corpuscular Hgb Conc 31.3 g/dl (32-36); Neutrophil # 9.7 K/mm3 (1.3-6.0); Neutrophil % 64.7 % (42-75.0); Platelet Count 370 K/mm3 (150-450); Red Blood Count 4.19 M/mm3 (4.2-5.4); Red Cell Distribution Width 16.6 % (11.5-14.0)
[2019-03-11 09:41] LABS: Albumin * 3.3 gm/dl (3.4-5.0); Anion Gap 14.8 mmol/L (6.8-13.8); BUN/Creatinine Ratio 9.9 (9.0-21.6); Bilirubin, Total 0.4 mg/dL (0.0-1.1); Ca. Corrected For Albumin 8.7 mg/dL (8.4-10.2); Calcium * 8.5 mg/dL (7.9-10.9); Carbon Dioxide 24.3 mmol/L (24-32.6); Potassium 3.1 mmol/L (3.4-4.6)
[2019-03-11] MEDS ORDERED: MORPHINE SULFATE 10 MG/ML SYRG IV PRN (11:12)
[2019-03-11] MEDS: metroNIDAZOLE 500 MG TABLET PO SCH ×2 (13:00→20:53)
[2019-03-11] MEDS: DICYCLOMINE HCL 20 MG TABLET PO SCH ×3 (13:00→20:53)
[2019-03-11] MEDS: HYDROmorphone HCL 2 MG TABLET PO PRN ×3 (14:38→22:26)
--- NOTE | 2019-03-11 19:03 | PN ---
Progess Note - Interim Date: 03/11/19 Time: 18:30 Narrative: 03/11/19 18:58 I came to see Tuyet this evening. She continues to have quite a lot of abdominal pain and requiring opiate analgesics to control it. She is also continuing to have a lot of cramping and diarrhea. Her blood pressure has been systolic in the 80s and 90s today. I have held her blood pressure medications and we continue to give her IV fluids for volume replacement and electrolyte correction. She is able to eat some but has early satiety and becomes nauseous. There is been no emesis. She is simply too weak to go home and take care of herself. The opiates are causing her blood pressure to be low and her vital signs need to be continuously monitored. I have also started her on mesalamine 400 mg 4 times daily. She has a diagnosis in her records of Crohn's disease but she is not aware of having been diagnosed with that. Nonetheless, I would expect that her diarrhea from diverticular inflammation to have quieted some by now and so I will add an anti-inflammatory. Because of these reasons I have adm itted her to a regular hospital stay so that therapy and monitoring can be continued.
[2019-03-11] MEDS: CIPROFLOXACIN HCL 500 MG TABLET PO SCH (20:53)
[2019-03-11] MEDS: MESALAMINE 400 MG CAPSULE PO SCH (20:55)
[2019-03-12] MEDS: HYDROmorphone HCL 2 MG TABLET PO PRN ×6 (02:37→23:30)
[2019-03-12] MEDS: metroNIDAZOLE 500 MG TABLET PO SCH (04:43)
[2019-03-12 06:00] LABS: Hemoglobin 9.8 gm/dL (12.5-16.0); Mean Cell Volume 86.8 fl (78-100); Mean Corpuscular Hemoglobin 27.5 pg (27-31); Mean Corpuscular Hgb Conc 31.6 g/dl (32-36); Mean Platelet Volume 9.8 fl (8-12.5); Neutrophil # 5.4 K/mm3 (1.3-6.0); Neutrophil % 59.7 % (42-75.0); Platelet Count 317 K/mm3 (150-450); Red Blood Count 3.57 M/mm3 (4.2-5.4); Red Cell Distribution Width 16.4 % (11.5-14.0)
[2019-03-12 06:22] LABS: Albumin * 2.6 gm/dl (3.4-5.0); Anion Gap 9.4 mmol/L (6.8-13.8); BUN/Creatinine Ratio 5.8 (9.0-21.6); Bilirubin, Total 0.3 mg/dL (0.0-1.1); Ca. Corrected For Albumin 9.3 mg/dL (8.4-10.2); Calcium * 8.5 mg/dL (7.9-10.9); Carbon Dioxide 29.1 mmol/L (24-32.6); Potassium 3.5 mmol/L (3.4-4.6)
--- NOTE | 2019-03-12 09:28 | PN ---
Subjective - Date and Time Seen Date: 03/11/19 Time: 08:00 Subjective Narrative: Continues to C/o of diarrhea, abdominal cramping, nausea, weakness. BP is low. Has only partially responded to fluid challenge. K is up to 3.1 and Na is 131. WBC is 15K. Objective - Review of Systems Generalized/Overall Review: Reports: Weakness, Malaise EENTM: Reports: No Symptoms Reported Respiratory: Reports: No Symptoms Reported Cardiac: Reports: No Symptoms Reported Abdominal: Reports: Nausea, Abdominal Pain, Diarrhea Genitourinary Symptoms: Reports: No Symptoms Reported Musculoskeletal Complaints: Reports: No Symptoms Reported Neurological: Reports: No Symptoms Reported Skin: Reports: No Symptoms Reported Endocrine: Reports: No Symptoms Reported - Vitals Vitals: Last Vital Signs Temp 36.7 C 03/12/19 06:51 Pulse 73 03/12/19 06:51 Resp 16 03/12/19 06:51 BP 120/72 03/12/19 06:51 Pulse Ox 98 03/12/19 06:51 - Abnormal Lab Findings Abnormal Lab Findings: Abnormal Lab Results 03/11/19 03/11/19 03/12/19 Range/Units 09:19 09:19 06:01 WBC 15.0 H (4.0-10.5) K/mm3 RBC 4.19 L 3.57 L (4.2-5.4) M/mm3 Hgb 11.6 L 9.8 L (12.5-16.0) gm/dL Hct 31.0 L (37.0-47.0) % MCHC 31.3 L 31.6 L (32-36) g/dl RDW 16.6 H 16.4 H (11.5-14.0) % Immature Gran # (Auto) 0.06 H 0.04 H (0.000-0.0310) K/mm3 Neutrophils # 9.7 H (1.3-6.0) K/mm3 Lymphocytes # 4.37 H (1.5-3.5) k/mm3 Potassium 3.1 L (3.4-4.6) mmol/L Anion Gap 14.8 H (6.8-13.8) mmol/L BUN/Creatinine Ratio (9.0-21.6) ALT (19-67) U/L Total Protein 6.0 L (6.2-8.2) gm/dL Albumin 3.3 L (3.4-5.0) gm/dl 03/12/19 Range/Units 06:01 WBC (4.0-10.5) K/mm3 RBC (4.2-5.4) M/mm3 Hgb (12.5-16.0) gm/dL Hct (37.0-47.0) % MCHC (32-36) g/dl RDW (11.5-14.0) % Immature Gran # (Auto) (0.000-0.0310) K/mm3 Neutrophils # (1.3-6.0) K/mm3 Lymphocytes # (1.5-3.5) k/mm3 Potassium (3.4-4.6) mmol/L Anion Gap (6.8-13.8) mmol/L BUN/Creatinine Ratio 5.8 L (9.0-21.6) ALT 15 L (19-67) U/L Total Protein 5.0 L (6.2-8.2) gm/dL Albumin 2.6 L (3.4-5.0) gm/dl - Exam Constitutional: Present: Alert, Oriented x3, Cooperative, Well developed, Well nourished, Moderate distress ENT Exam: Present: normal ENT inspection, hearing grossly normal, pharynx normal, TMs normal Neck: Present: non-tender, full range of motion, supple Breasts: Present: Exam deferred Respiratory: Present: chest non-tender, lungs clear, normal breath sounds, no respiratory distress, no accessory muscle use Cardiovascular/Chest: Present: normal peripheral pulses, regular rate, rhythm, no chest tenderness, no edema, no gallop, no JVD, no murmur, no rub Abdomen: Present: tender, guarding, firm, distended, hypoactive /Rectal: Present: Exam deferred Extremity: Present: normal range of motion, non-tender, normal inspection, no pedal edema, no calf tenderness, normal capillary refill Skin Exam: Present: normal color, warm/dry Lymphatic: Present: no adenopathy Neurologic: Present: uniform room attendant II-XII nml as tested, no motor/sensory deficits, alert, normal mood/affect, oriented x 3 Appearance: Present: appropriate appearance, appropriate insight, neat, no memory impairment Eye contact: Present: cooperative, good eye contact, normal speech Thoughts: Present: normal thought pattern, no apparent hallucination Assessment/Plan Plan Narrative: Switch to oral meds in anticipation of being discharged to home. Continue IV fluids until her BP improves and hold her BP meds. Try to be up more in the chair and ambulate more. At this moment she is not dischargeable. I will reassess at Noon hour. She is obs but may have to convert to regular hospital stay if her BP does not normalize and she continues to need IV fluids. - Problems/Diagnosis (1) Abdominal pain Problem: Acute (2) Diarrhea in adult patient Problem: Acute (3) Dehydration Problem: Acute (4) Nausea Problem: Acute (5) Fever Problem: Acute Qualifiers: Fever type: unspecified Qualified Code(s): R50.9 - Fever, unspecified (6) Hypotension Problem: Acute Qualifiers: Hypotension type: hypotension due to hypovolemia Qualified Code(s): I95.89 - Other hypotension; E86.1 - Hypovolemia (7) Diverticulitis Problem: Suspected
[2019-03-12] MEDS: amLODIPine BESYLATE 10 MG TABLET PO SCH (09:30)
[2019-03-12] MEDS: CHLORTHALIDONE 25 MG TABLET PO SCH (09:31)
[2019-03-12] MEDS: SILVER SULFADIAZINE 25 APPL JAR TP SCH ×2 (09:39→20:37)
[2019-03-12] MEDS: FAMOTIDINE 20 MG TABLET PO SCH ×2 (09:40→20:35)
[2019-03-12] MEDS: MESALAMINE 400 MG CAPSULE PO SCH ×4 (09:40→20:34)
[2019-03-12] MEDS: CIPROFLOXACIN HCL 500 MG TABLET PO SCH (09:40)
[2019-03-12] MEDS: DICYCLOMINE HCL 20 MG TABLET PO SCH ×4 (09:40→20:34)
[2019-03-12] MEDS: SERTRALINE HCL 100 MG TABLET PO SCH (09:41)
[2019-03-12] MEDS: POTASSIUM CHLORIDE 20 MEQ in 0.5 NORMAL SALINE 1,000 ML IV SCH ×2 (09:42→21:51)
[2019-03-12] MEDS: LOSARTAN POTASSIUM 50 MG TABLET PO SCH (09:45)
--- NOTE | 2019-03-12 10:29 | PN ---
Subjective - Date and Time Seen Date: 03/12/19 Time: 21:40 Subjective Narrative: Stephanie is some better this morning. She is feeling a little stronger. She has had increased abdominal pain after eating breakfast however. I suspect that this is chest: Spasm from gastrocolic reflex aggravating her underlying condition. It is still uncertain as to why she has so much abdominal pain problems. She has been in the emergency room approximately 20 times over the past couple of years with similar complaints but not to the point of requiring admission most of the time. She was seeing a rn bone marrow transplant in [place] but then was lost to follow-up because he left town. She has not reestablished with a rn bone marrow transplant. Reviewing today's lab, the white count has dropped to 9000 (down from 15,000 yesterday). Hemoglobin has dropped to 9.8 g but I suspect it is from hemodilution as there is been no evidence of bleeding. The potassium is up from 3.1 yesterday to 3.5 today. Her blood pressure has stabilized at 120/72 this morning. She has been running in the 80s and 90s systolic since admission. She is already had 4 diarrheal stools this morning. The right sustain does not find any white cells and the culture shows no pathogenic bacteria. Therefore I will discontinue the antibiotics. I have started mesalamine this morning and the possibility that she does have inflammatory bowel disease. Her sed rate is 23 and her C-reactive protein 1.6. That one time she had a diagnosis of Crohn's disease but was scoped and biopsied and the biopsy did not verify. However, because it is a skip lesion disease it may have been missed. Objective - Review of Systems Generalized/Overall Review: Reports: Weakness, Malaise, Weight loss. Denies: Fever EENTM: Reports: No Symptoms Reported Respiratory: Reports: No Symptoms Reported Cardiac: Reports: No Symptoms Reported Abdominal: Reports: Nausea, Abdominal Pain, Diarrhea Genitourinary Symptoms: Reports: No Symptoms Reported Musculoskeletal Complaints: Reports: No Symptoms Reported Neurological: Reports: No Symptoms Reported Skin: Reports: No Symptoms Reported Endocrine: Reports: No Symptoms Reported - Vitals Vitals: Last Vital Signs Temp 36.7 C 03/12/19 09:45 Pulse 78 03/12/19 09:45 Resp 18 03/12/19 09:45 BP 122/70 03/12/19 09:45 Pulse Ox 97 03/12/19 09:45 - Abnormal Lab Findings Abnormal Lab Findings: Abnormal Lab Results 03/12/19 03/12/19 Range/Units 06:01 06:01 RBC 3.57 L (4.2-5.4) M/mm3 Hgb 9.8 L (12.5-16.0) gm/dL Hct 31.0 L (37.0-47.0) % MCHC 31.6 L (32-36) g/dl RDW 16.4 H (11.5-14.0) % Immature Gran # (Auto) 0.04 H (0.000-0.0310) K/mm3 BUN/Creatinine Ratio 5.8 L (9.0-21.6) ALT 15 L (19-67) U/L Total Protein 5.0 L (6.2-8.2) gm/dL Albumin 2.6 L (3.4-5.0) gm/dl - Exam Constitutional: Present: Alert, Oriented x3, Cooperative, Well developed, Mild distress ENT Exam: Present: normal ENT inspection, hearing grossly normal, pharynx normal Neck: Present: non-tender, full range of motion, supple, normal inspection Breasts: Present: Exam deferred Respiratory: Present: chest non-tender, lungs clear, normal breath sounds, no respiratory distress Cardiovascular/Chest: Present: normal peripheral pulses, regular rate, rhythm, no chest tenderness, no edema, no gallop, no JVD, no murmur, no rub Abdomen: Present: tender, guarding, distended, hypoactive /Rectal: Present: Exam deferred Extremity: Present: normal range of motion, non-tender, normal inspection, no pedal edema, no calf tenderness, normal capillary refill Skin Exam: Present: normal color, warm/dry, no cyanosis Lymphatic: Present: no adenopathy Neurologic: Present: communications project manager II-XII nml as tested, normal cerebellar test, no motor/sensory deficits, alert, normal mood/affect, oriented x 3 Appearance: Present: appropriate appearance, appropriate insight, neat, no memory impairment Eye contact: Present: cooperative, good eye contact, normal speech Thoughts: Present: normal thought pattern, no apparent hallucination Assessment/Plan Plan Narrative: 1. Progress diet 2. Discontinue Cipro and metronidazole 3. Add mesalamine 400 mg 4 times daily 4. Continue dicyclomine 20 mg p.o. 4 times daily 5. Continue hydromorphone 2 mg p.o. every 4 hours as needed pain 6. Anticipate discharge for tomorrow morning - Problems/Diagnosis (1) Abdominal pain Problem: Acute (2) Diarrhea in adult patient Problem: Acute (3) Dehydration Problem: Ruled-out (4) Nausea Problem: Acute (5) Fever Problem: Acute Qualifiers: Fever type: unspecified Qualified Code(s): R50.9 - Fever, unspecified (6) Hypotension Problem: Resolved Qualifiers: Hypotension type: hypotension due to hypovolemia Qualified Code(s): I95.89 - Other hypotension; E86.1 - Hypovolemia (7) Diverticulitis Problem: Suspected
[2019-03-12] MEDS: ONDANSETRON 4 MG TAB.RAPDIS PO PRN ×2 (14:27→21:14)
[2019-03-12] MEDS: LOPERAMIDE HCL 2 MG CAPSULE PO PRN ×3 (17:08→23:30)
[2019-03-13] MEDS: LOPERAMIDE HCL 2 MG CAPSULE PO PRN ×3 (03:30→12:17)
[2019-03-13] MEDS: HYDROmorphone HCL 2 MG TABLET PO PRN ×3 (03:30→11:49)
[2019-03-13 06:01] LABS: Hematocrit 32.1 % (37.0-47.0); Hemoglobin 10.1 gm/dL (12.5-16.0); Mean Cell Volume 87.7 fl (78-100); Mean Corpuscular Hemoglobin 27.6 pg (27-31); Mean Corpuscular Hgb Conc 31.5 g/dl (32-36); Mean Platelet Volume 10.3 fl (8-12.5); Neutrophil # 6.1 K/mm3 (1.3-6.0); Neutrophil % 59.5 % (42-75.0); Platelet Count 326 K/mm3 (150-450); Red Blood Count 3.66 M/mm3 (4.2-5.4); Red Cell Distribution Width 16.5 % (11.5-14.0); White Blood Count 10.2 K/mm3 (4.0-10.5)
[2019-03-13 06:11] LABS: Anion Gap 10.1 mmol/L (6.8-13.8); BUN/Creatinine Ratio 7.1 (9.0-21.6); Calcium * 8.9 mg/dL (7.9-10.9); Carbon Dioxide 27.5 mmol/L (24-32.6); Estimated Creat Clear 72.5; Potassium 3.6 mmol/L (3.4-4.6)
[2019-03-13] MEDS: CHLORTHALIDONE 25 MG TABLET PO SCH (08:32)
[2019-03-13] MEDS: amLODIPine BESYLATE 10 MG TABLET PO SCH (08:32)
[2019-03-13] MEDS: SILVER SULFADIAZINE 25 APPL JAR TP SCH (08:33)
[2019-03-13] MEDS: LOSARTAN POTASSIUM 50 MG TABLET PO SCH (08:37)
[2019-03-13] MEDS: MESALAMINE 400 MG CAPSULE PO SCH ×2 (08:37→12:17)
[2019-03-13] MEDS: DICYCLOMINE HCL 20 MG TABLET PO SCH ×2 (08:37→12:17)
[2019-03-13] MEDS: FAMOTIDINE 20 MG TABLET PO SCH (08:38)
[2019-03-13] MEDS: SERTRALINE HCL 100 MG TABLET PO SCH (08:38)
[2019-03-13] MEDS: POTASSIUM CHLORIDE 20 MEQ in 0.5 NORMAL SALINE 1,000 ML IV SCH (10:01)
--- NOTE | 2019-03-13 13:50 | DS ---
(1) Abdominal pain Problem: Acute (2) Diarrhea in adult patient Problem: Acute (3) Dehydration Problem: Ruled-out (4) Nausea Problem: Resolved (5) Fever Problem: Resolved Qualifiers: Fever type: unspecified Qualified Code(s): R50.9 - Fever, unspecified (6) Hypotension Problem: Resolved Qualifiers: Hypotension type: hypotension due to hypovolemia Qualified Code(s): I95.89 - Other hypotension; E86.1 - Hypovolemia (7) Diverticulitis Problem: Suspected Description of Stay: Tuyet Jordan is a 58-year-old female who was admitted from my office directly to the hospital with complaint of abdominal pain nausea, severe diarrhea, weakness, fever. She was started on antibiotics after stool cultures and blood cultures were drawn. The cultures came back negative for pathological bacteria and the right stain does not support an infectious process. Antibiotics were then stopped. However she continues to have abdominal pain particularly postprandial severe abdominal pain across the entire abdomen. She was dehydrated from enteric loss of fluid and was bolused several liters of fluid and then placed on an IV drip with potassium to replace potassium. She is responded very well to therapy and is fully rehydrated now. I started on mesalamine yesterday but it has not had any impact at this point. Also started on Imodium 2 initially each day and 1 after each loose stool and she thinks that has started to help after about 6 of them. Her nausea is gone and she has not needed antinausea medicine today. She is much more comfortable alert and no longer lightheaded. Her hypotension resolved yesterday and we have not had any more problems with that. She believes she can care for herself at home now and would like to go home since she is not sleeping very well here. I still do not have a definitive diagnosis as to whether this man inflammatory bowel disease but it does not appear to be diverticulitis or an infectious process. Her sed rate and C-reactive protein were elevated but just mildly. Her hypokalemia corrected with IV potassium. Her disposition is improved and her prognosis is fair. Procedures Performed: none Results and Findings: Pending Mircobiology Results 03/10/19 13:15 Blood Blood Culture - Preliminary NO GROWTH AFTER 48 HOURS Lab Pending Results 03/10/19 11:56: C-Reactive Prot, Quant 1.8 H 03/10/19 20:50: Stool Occult Blood Negative 03/10/19 20:50: Fluid Lymphocytes 0 L, Stool White Cell Res 4 Many, Stool Neutrophil # 0 L, Stool Leukocytes, Qual None seen, Yeast (Wet Prep) None seen 03/11/19 09:19: WBC 15.0 H, RBC 4.19 L, Hgb 11.6 L, Hct 37.1, MCV 88.5, MCH 27.7, MCHC 31.3 L, RDW 16.6 H, Plt Count 370, MPV 10.0, Immature Gran % (Auto) 0.40, Immature Gran # (Auto) 0.06 H, Neutrophils % 64.7, Lymphocytes % 29.1, Monocytes % 4.5, Eosinophils % 0.7, Basophils % 0.6, Nucleated RBC % 0.0, Neutrophils # 9.7 H, Lymphocytes # 4.37 H, Monocytes # 0.7, Eosinophils # 0.1, Absolute Basophils 0.1 03/11/19 09:19: Sodium 138, Plasma Sodium 138, Potassium 3.1 L, Chloride 102, Carbon Dioxide 24.3, Anion Gap 14.8 H, BUN 8 D, Creatinine 0.81, Est GFR (Non- Af Amer) 77 D, BUN/Creatinine Ratio 9.9, Random Glucose 81 D, Calcium 8.5, Calcium Adj for Albumin 8.7, Total Bilirubin 0.4, AST 22, ALT 20, Alkaline Phosphatase 88, Total Protein 6.0 L, Albumin 3.3 L 03/12/19 06:01: WBC 9.0 D, RBC 3.57 L, Hgb 9.8 L, Hct 31.0 L, MCV 86.8, MCH 27.5, MCHC 31.6 L, RDW 16.4 H, Plt Count 317, MPV 9.8, Immature Gran % (Auto) 0.40, Immature Gran # (Auto) 0.04 H, Neutrophils % 59.7, Lymphocytes % 32.7, Monocytes % 5.3, Eosinophils % 1.3, Basophils % 0.6, Nucleated RBC % 0.0, Neutrophils # 5.4, Lymphocytes # 2.94, Monocytes # 0.5, Eosinophils # 0.1, A bsolute Basophils 0.1 03/12/19 06:01: Sodium 139, Plasma Sodium 139, Potassium 3.5, Chloride 104, Carbon Dioxide 29.1, Anion Gap 9.4, BUN 4, Creatinine 0.69, Est GFR (Non-Af A lydia) 93 D, BUN/Creatinine Ratio 5.8 L, Random Glucose 93, Calcium 8.5, Calcium Adj for Albumin 9.3, Total Bilirubin 0.3, AST 15, ALT 15 L, Alkaline Phosphatase 62, Total Protein 5.0 L, Albumin 2.6 L 03/13/19 06:00: WBC 10.2, RBC 3.66 L, Hgb 10.1 L, Hct 32.1 L, MCV 87.7, MCH 27.6, MCHC 31.5 L, RDW 16.5 H, Plt Count 326, MPV 10.3, Immature Gran % (Auto) 0.40, Immature Gran # (Auto) 0.04 H, Neutrophils % 59.5, Lymphocytes % 32.8, Monocytes % 5.7, Eosinophils % 1.1, Basophils % 0.5, Nucleated RBC % 0.0, Neutrophils # 6.1 H, Lymphocytes # 3.34, Monocytes # 0.6, Eosinophils # 0.1, Absolute Basophils 0.1 03/13/19 06:00: Sodium 137, Plasma Sodium 137, Potassium 3.6, Chloride 103, Carbon Dioxide 27.5, Anion Gap 10.1, BUN 5, Creatinine 0.70, Est GFR (Non-Af Amer) 91, BUN/Creatinine Ratio 7.1 L, Random Glucose 123 H D, Calcium 8.9 Discharge Location: Home Disposition: Home self-care Condition: Fair Face to Face Encounter completed per CMS Guidelines: No Discharge Activity: Activity as tolerated Discharge Diet: General/regular food Referrals: Toni Addison DO [Primary Care Provider] - Additional Patient Instructions (free text): Schedule to see Dr. Addison in the office in 2 weeks. Schedule CBC and CMP, sed rate and C-reactive protein in 2 weeks. Schedule an appointment with the digestive disorder clinic at the [facility] regarding her chronic abdominal pain and diarrhea. -Please make TCM appointment unless shelter discharge, or if following up with outside provider. Thank you! Estefany @ [phone] or Carine at [phone]. Complete Home Medications List: Complete Home Medication List: ranitidine 150 mg tablet 150 mg PO BID #180 tab 08/05/18 amlodipine 10 mg tablet 10 mg PO DAILY #90 tab 10/15/18 chlorthalidone 25 mg tablet 25 mg PO DAILY #90 tab 10/15/18 albuterol sulfate HFA 90 mcg/actuation aerosol inhaler 1 inh IH Q6H PRN #8.5 g 11/09/18 gabapentin 400 mg capsule 400 mg PO TID #90 cap 01/13/19 sertraline 100 mg tablet 200 mg PO DAILY #180 tab 01/13/19 valsartan 320 mg tablet 320 mg PO DAILY #90 tab 01/13/19 Acetaminophen [Tylenol] 500 mg PO Q4H PRN tab 03/13/19 Dicyclomine HCl [Bentyl] 20 mg PO QID #120 tab 03/13/19 HYDROmorphone HCL [Dilaudid] 2 mg PO Q4H PRN #90 tab 03/13/19 Loperamide HCl [Imodium] 2 mg PO PRN PRN #60 cap 03/13/19 Mesalamine [Delzicol] 400 mg PO QID #120 cap 03/13/19 Ondansetron [Zofran Odt] 4 mg PO Q6H PRN #10 tab 03/13/19
[2019-03-13 14:23] VITALS: BP 110/59
== END 2019-03-13 14:26 | disposition home or self-care (01) | DRG 392 ==
LOC: CCFAL → MS 10:24
PROVIDERS: ADMIT Family Medicine; ATTEND Family Medicine
DX: K57.92 Diverticulitis of intestine, part unspecified, without perforation or abscess without bleeding; R19.7 Diarrhea, unspecified; E87.6 Hypokalemia; E86.1 Hypovolemia; E86.0 Dehydration; R11.0 Nausea; R50.9 Fever, unspecified; I95.89 Other hypotension; I10 Essential (primary) hypertension; R10.11 Right upper quadrant pain; E87.1 Hypo-osmolality and hyponatremia
CPT/HCPCS: 36415; 74019; 74020; 74177; 80048; 80053; 82272; 85025; 85652; 86140; 87040; 87045; 87046; 87086; 89055; 96361; 96365; 96366; 96367; 96375; 96376; G0378; G0379; Q9963; Q9967

== ENCOUNTER 2019-04-02 09:44 | Observation (INO) ==
[2019-04-02] MEDS ORDERED: ONDANSETRON HCL/PF 2 MG/ML VIAL IV ONE (10:08)
[2019-04-02] MEDS ORDERED: HYDROmorphone HCL 1 MG/ML DISP.SYRIN IV ONE ×2 (10:10→10:53)
--- NOTE | 2019-04-02 10:21 | ERNOTE ---
Abdominal HPI - General Chief Complaint: Rectal Bleeding Time Seen by Provider: 04/02/19 09:47 Source: patient Exam Limitations: no limitations - Immun/Allergies/Home Medications Immunizatons: IMMUNIZATION HX Immunizations Up to Date Yes History of Influenza Vaccine Yes Hx Pneumococcal Vaccination No Allergies/Adverse Reactions: Allergies No Known Allergies Allergy (Verified 04/02/19 13:09) Home Medications: HOME MEDICATIONS amlodipine 10 mg tablet 10 mg PO DAILY #90 tab 10/15/18 [Last Taken 04/01/19] chlorthalidone 25 mg tablet 25 mg PO DAILY #90 tab 10/15/18 [Last Taken 04/01/19] sertraline 100 mg tablet 200 mg PO DAILY #180 tab 01/13/19 [Last Taken 04/01/19] Loperamide HCl [Imodium] 2 mg PO PRN PRN #60 cap 03/13/19 [Last Taken Unknown] Lisinopril [Zestril] 40 mg PO DAILY 03/24/19 [Last Taken 04/01/19] Dicyclomine HCl [Bentyl] 20 mg PO QID #120 tab 03/29/19 [Last Taken Unknown] Gabapentin 400 mg PO QID #120 cap 03/29/19 [Last Taken Unknown] HYDROmorphone HCL [Dilaudid] 4 mg PO Q4H PRN #90 tab 03/29/19 [Last Taken Unknown] Omeprazole [Prilosec] 20 mg PO DAILY #30 capsule.sa 03/29/19 [Last Taken 04/01/19] Ondansetron [Zofran Odt] 4 mg PO Q6H PRN #20 tab.rapdis 03/29/19 [Last Taken Unknown] Mesalamine [Delzicol] 400 mg PO QID 04/02/19 [Last Taken 04/01/19] - History of Present Illness Narrative: Patient has a history of chronic abdominal pain. She was admitted to the hospital twice last month, first for colitis (treated with cipro, flagyl, and mesalamin). She returned a few days later for rectal bleeding, dropped her Hb by 5 and was transfused and treated with IV fluids and pain medications. She had a total of three abdominal CTs that month, the only significant findings was mild colitis. She was discharged home four days ago, states that she was doing okay on a soft diet for a few days but then symptoms got significantly worse again last night. She states that she has been vomiting, has severe cramping abdominal pain and started to have bloody diarrhea again, at least five times through the night, last around 06:00. Timing: getting worse Quality: severe, cramping Activities at Onset: none Associated Symptoms: Present: diarrhea-gross blood. Absent: headache, fever/chills Prior Treatment: Present: recently seen Review of Systems - Review of Systems Constitutional: Present: recent illness, fatigue, malaise. 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 Flores about 1 week ago. Now it is hot, red, swollen and painful. Chronic cough (Chronic) Has had a cough for the past several months. It is a dry hacking cough that she cannot get rid of. In reviewing her medicine she is on 40 mg of lisinopril daily and I suspect that she has a 'Pril cough. Change to valsartan. Panic attack (Acute) IBS (irritable bowel syndrome) (Acute) Depression (Chronic) increase sertraline to 100 mg daily. Status post fall (Acute) Swelling of right knee joint (Acute) Knee pain, right (Acute) Piriformis syndrome of right side (Chronic) Anxiety (Chronic) Piriformis syndrome (Acute) Back pain with sciatica (Chronic) Iron deficiency (Chronic) Vitamin D deficiency (Acute) Chronic pain (Chronic) Normocytic anemia (Chronic) Abdominal pain (Acute) start ranitidine 150 mg BID. Chest pain (Acute) Upper respiratory infection (Acute) Bronchitis (Acute) CVA (cerebral infarction) (Chronic) Head ache (Acute) Migraine (Chronic) Contusion of chest (Acute) Toe fracture, right (Acute) Vomiting (Acute) Ileitis (Chronic) Chronic low back pain (Chronic) Hypokalemia (Resolved) Iron (Fe) deficiency anemia (Chronic) Multiple rib fractures (Acute) Back pain (Acute) Laceration of scalp without complication (Acute) Contusion of head (Acute) Dysuria (Acute) Low back pain (Acute) Canker sores oral (Acute) Cold sore (Acute) Muscle spasm (Acute) Back pain (Acute) Sprain of ribs, initial encounter (Acute) Sinusitis (Acute) Elevated liver enzymes (Acute) Right flank pain (Acute) UTI (urinary tract infection) (Acute) Right lower quadrant abdominal pain (Acute) Acute thoracic back pain (Acute) Fall at home (Acute) Dehydration symptoms (Resolved) Syncope due to orthostatic hypotension (Acute) Fibula upper end fracture (Acute) Diarrhea (Acute) Right ankle sprain (Acute) Sciatica (Acute) Fall (Acute) Vomiting and diarrhea (Acute) Chronic back pain (Chronic) Chronic low back pain with right-sided sciatica (Acute) Sciatica of right side (Acute) Acute renal failure (Acute) Enteritis (Acute) Pyelonephritis, acute (Acute) Dehydration (Ruled-out) SIRS (systemic inflammatory response syndrome) (Acute) Hypertension (Chronic) ROSA (acute kidney injury) (Resolved) Crohn's disease (Suspected) Aphthous ulcer of mouth (Chronic) B12 deficiency (Acute) Chronic abdominal pain (Acute) Constipation (Acute) CVA (cerebral vascular accident) Onset Date: ~07/2014 Colonoscopy Onset Date: Unknown Refused Crohns disease Bruising Onset Date: 01/24/14 Chronic low back pain Onset Date: 10/08/13 Cystitis Onset Date: Unknown Essential hypertension Onset Date: Unknown Fasciitis Onset Date: 03/11/14 Left trapezius GERD (gastroesophageal reflux disease) Onset Date: 11/02/13 Hx of renal colic Onset Date: 11/05/13 Kidney stone Onset Date: ~12/2012 [place] stent placed for 1 week Spondylisthesis Onset Date: Unknown TMJ (temporomandibular joint disorder) Onset Date: 03/11/14 Vitamin D deficiency Onset Date: 02/18/14 Chest pain Onset Date: 01/24/14 Left ankle sprain Onset Date: ~03/2017 Surgical History: Surgical History (Updated 02/02/19 @ 11:44 by Krys Flores MD) Cystoureteroscopy w/stent placement with Lithoclast 10/2012 Renal stone. H/O colonoscopy Onset Date: 05/14/18 [facility]-Dr. Buenrostro polyps History of back surgery 1 reno, 6 pins 05/2008 History of esophagogastroduodenoscopy Onset Date: 05/14/18 [facility]-Dr Buenrostro-polyps Hx of appendectomy 1976 Hx of cystoscopy w/stent removal. 10/2012 Renal stone [place] Hx of hysterectomy Left one ovary. Unknown date. Hx of laminectomy Unknown Date Laminoplasty Family History: Family History (Updated 04/13/18 @ 11:09 by Kesha Cervantes CMA) Brother Healthy adult male Daughter Kidney stone Father , Age 77 Mesothelioma Mother Cancer Ovarian Sister Healthy female Son Kidney stone Other Bruising CVA (cerebral vascular accident) Chest pain Chronic low back pain Cystitis Essential hypertension Fasciitis GERD (gastroesophageal reflux disease) Hx of renal colic Left ankle sprain Spondylisthesis TMJ (temporomandibular joint disorder) Vitamin D deficiency Social History: (Last Reviewed 04/02/19 @ 13:09 by Leti Salazar RN) Social History: Marital status: lives independently: Yes household members: none current occupational status: disabled Service: No Tobacco: Smoking Status: Never smoker Alcohol: alcohol intake: current alcohol intake frequency: holiday/special occasion details: Current some day social Substance Use: substance use type: does not use Dietary Habits: caffeine: Yes caffeine comment: occasional Type: coffee Physical Exam - Physical Exam General Appearance: Present: wd/wn, alert, mild distress, anxious Respiratory: Present: no respiratory distress, normal breath sounds, no accessory muscle use, lungs clear Cardiovascular/Chest: Present: regular rate, rhythm, no murmur Gastrointestinal/Abdominal: Present: nondistended, soft, tenderness - throughout, abnormal bowel sounds - decreased Rectal Exam: Present: nontender, normal rectal tone, other - no stool Extremity Exam: Present: no edema Neurological Exam: Present: alert, oriented, normal mood/affect Skin Exam: Present: normal color, warm/dry Progress - Results and Orders Patient's Lab Results:: I have reviewed the patient's lab results. - Vital Signs Patient's Vital Signs:: I have reviewed the patient's vital signs. Vital Signs: Vital Signs 04/02/19 09:47 Temperature 36.2 C Pulse Rate 87 Respiratory Rate 15 Blood Pressure 75/53 L O2 Sat by Pulse Oximetry 100 - X-Ray X-Ray #1 X-Ray: abdomen - non specific but abnormal bowel gas pattern Interpretation: Reviewed by me - Progress/Reassessment Chief Complaint: Rectal Bleeding Progress Note-Subjective: 04/02/19 10:15 on anoscope: no bleeding, no stool 04/02/19 11:[address] Barbour (per [facility]: seen by Dr Adame 01/2018, had labs and endoscopy scheduled, no results available) 04/02/19 12:24 discussed test results with patient and family will not CT her again as she had 3 CT's within the month, even if she had a bowel obstruction that would be treated with IV fluids will admit and monitor H/H, will request records from [facility] 04/02/19 12:24 discussed with oscar Casanova to admit for observation Departure Clinical Impression: Abdominal pain, Lower GI bleed - Departure Disposition: Still a patient Condition: Stable
[2019-04-02 10:38] LABS: Hematocrit 39.7 % (37.0-47.0); Hemoglobin 12.5 gm/dL (12.5-16.0); Mean Cell Volume 89.4 fl (78-100); Mean Corpuscular Hemoglobin 28.2 pg (27-31); Mean Corpuscular Hgb Conc 31.5 g/dl (32-36); Mean Platelet Volume 9.5 fl (8-12.5); Neutrophil % 68.2 % (42-75.0); Platelet Count 364 K/mm3 (150-450); Red Blood Count 4.44 M/mm3 (4.2-5.4); Red Cell Distribution Width 17.2 % (11.5-14.0); White Blood Count 11.8 K/mm3 (4.0-10.5)
[2019-04-02] MEDS ORDERED: DICYCLOMINE HCL 20 MG TABLET PO ONE (10:53)
[2019-04-02 10:54] LABS: Albumin * 2.9 gm/dl (3.4-5.0); Anion Gap 13.9 mmol/L (6.8-13.8); BUN/Creatinine Ratio 8.1 (9.0-21.6); Bilirubin, Total 0.2 mg/dL (0.0-1.1); Ca. Corrected For Albumin 9.6 mg/dL (8.4-10.2); Carbon Dioxide 27.2 mmol/L (24-32.6); Potassium 4.1 mmol/L (3.4-4.6); Total Protein 5.4 gm/dL (6.2-8.2)
[2019-04-02] MEDS ORDERED: NORMAL SALINE 1,000 ML IV PRN (12:34)
[2019-04-02] MEDS ORDERED: ACETAMINOPHEN 500 MG TABLET PO PRN (12:37)
[2019-04-02] MEDS: HYDROmorphone HCL 2 MG TABLET PO PRN ×3 (13:02→23:52)
[2019-04-02] MEDS: oxyCODONE HCL/ACETAMINOPHEN 1 TAB TABLET PO PRN ×2 (15:25→20:01)
[2019-04-02] MEDS: ONDANSETRON HCL/PF 2 MG/ML VIAL IV PRN (15:28)
[2019-04-02 15:30] LABS: Urine Bilirubin Negative (NEGATIVE); Urine Blood Negative /ul (NEGATIVE); Urine Ketone Negative (NEGATIVE); Urine Nitrite Negative (NEGATIVE); Urine Protein Negative (NEGATIVE); Urine Specific Gravity 1.015 SP.GR. (1.005-1.010); Urine Urobilinogen Normal (NORMAL); Urine pH 8.5 pH (5.0-7.0)
[2019-04-02 15:39] LABS: Urine Appearance Clear (CLEAR); Urine Bacteria TRACE; Urine Color Yellow; Urine Mucus Few - 1+; Urine RBC None Seen /hpf (0-5); Urine WBC 0-5 /hpf (0-5)
[2019-04-02 18:53] LABS: Hematocrit 37.4 % (37.0-47.0); Hemoglobin 11.6 gm/dL (12.5-16.0)
--- NOTE | 2019-04-02 19:53 | HP ---
Chief Complaint - Chief Complaint Date of Service: 04/02/19 Time of Service: 19:52 Chief Complaint: Blood in stool, abdominal pain History of Present Illness: Tuyet is a 58 yo female with chronic abdominal pain, reportedly taking Dilaudid orally for pain of unknown origin. She has had multiple CT scans of her abdomen recently without an acute significant abnormalities. She has see GI in the past and reports having had EGD and colonoscopy a year ago. We do not currently have those records but will try to receive these. She reports to the ER today for report of bright red bloody stool. She admits abdominal pain but it is not different than her usual. She denies fever, sick contacts, changes in diet. 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 Flores about 1 week ago. Now it is hot, red, swollen and painful. Chronic cough (Chronic) Has had a cough for the past several months. It is a dry hacking cough that she cannot get rid of. In reviewing her medicine she is on 40 mg of lisinopril daily and I suspect that she has a 'Pril cough. Change to valsartan. Panic attack (Acute) IBS (irritable bowel syndrome) (Acute) Depression (Chronic) increase sertraline to 100 mg daily. Status post fall (Acute) Swelling of right knee joint (Acute) Knee pain, right (Acute) Piriformis syndrome of right side (Chronic) Anxiety (Chronic) Piriformis syndrome (Acute) Back pain with sciatica (Chronic) Iron deficiency (Chronic) Vitamin D deficiency (Acute) Chronic pain (Chronic) Normocytic anemia (Chronic) Abdominal pain (Acute) start ranitidine 150 mg BID. Chest pain (Acute) Upper respiratory infection (Acute) Bronchitis (Acute) CVA (cerebral infarction) (Chronic) Head ache (Acute) Migraine (Chronic) Contusion of chest (Acute) Toe fracture, right (Acute) Vomiting (Acute) Ileitis (Chronic) Chronic low back pain (Chronic) Hypokalemia (Resolved) Iron (Fe) deficiency anemia (Chronic) Multiple rib fractures (Acute) Back pain (Acute) Laceration of scalp without complication (Acute) Contusion of head (Acute) Dysuria (Acute) Low back pain (Acute) Canker sores oral (Acute) Cold sore (Acute) Muscle spasm (Acute) Back pain (Acute) Sprain of ribs, initial encounter (Acute) Sinusitis (Acute) Elevated liver enzymes (Acute) Right flank pain (Acute) UTI (urinary tract infection) (Acute) Right lower quadrant abdominal pain (Acute) Acute thoracic back pain (Acute) Fall at home (Acute) Dehydration symptoms (Resolved) Syncope due to orthostatic hypotension (Acute) Fibula upper end fracture (Acute) Diarrhea (Acute) Right ankle sprain (Acute) Sciatica (Acute) Fall (Acute) Vomiting and diarrhea (Acute) Chronic back pain (Chronic) Chronic low back pain with right-sided sciatica (Acute) Sciatica of right side (Acute) Acute renal failure (Acute) Enteritis (Acute) Pyelonephritis, acute (Acute) Dehydration (Resolved) SIRS (systemic inflammatory response syndrome) (Acute) Hypertension (Chronic) ROSA (acute kidney injury) (Resolved) Crohn's disease (Suspected) Aphthous ulcer of mouth (Chronic) B12 deficiency (Acute) Chronic abdominal pain (Chronic) Constipation (Acute) CVA (cerebral vascular accident) Onset Date: ~07/2014 Colonoscopy Onset Date: Unknown Refused Crohns disease Bruising Onset Date: 01/24/14 Chronic low back pain Onset Date: 10/08/13 Cystitis Onset Date: Unknown Essential hypertension Onset Date: Unknown Fasciitis Onset Date: 03/11/14 Left trapezius GERD (gastroesophageal reflux disease) Onset Date: 11/02/13 Hx of renal colic Onset Date: 11/05/13 Kidney stone Onset Date: ~12/2012 [place] stent placed for 1 week Spondylisthesis Onset Date: Unknown TMJ (temporomandibular joint disorder) Onset Date: 03/11/14 Vitamin D deficiency Onset Date: 02/18/14 Chest pain Onset Date: 01/24/14 Left ankle sprain Onset Date: ~03/2017 Surgical History: Surgical History (Updated 02/02/19 @ 11:44 by Krys Flores MD) Cystoureteroscopy w/stent placement with Lithoclast 10/2012 Renal stone. H/O colonoscopy [facility]: [facility] History of back surgery 1 reno, 6 pins 05/2008 History of esophagogastroduodenoscopy Onset Date: 05/14/18 [facility]-Dr Buenrostro-polyps Hx of appendectomy 1976 Hx of cystoscopy w/stent removal. 10/2012 Renal stone [place] Hx of hysterectomy Left one ovary. Unknown date. Hx of laminectomy Unknown Date Laminoplasty Family History: Family History (Updated 04/13/18 @ 11:09 by Kesha Cervantes CMA) Brother Healthy adult male Daughter Kidney stone Father , Age 77 Mesothelioma Mother Cancer Ovarian Sister Healthy female Son Kidney stone Other Bruising CVA (cerebral vascular accident) Chest pain Chronic low back pain Cystitis Essential hypertension Fasciitis GERD (gastroesophageal reflux disease) Hx of renal colic Left ankle sprain Spondylisthesis TMJ (temporomandibular joint disorder) Vitamin D deficiency Social History: (Last Updated 04/12/19 @ 11:43 by Toni Addison DO) Social History: Marital status: lives independently: Yes household members: none current occupational status: disabled Service: No Tobacco: Smoking Status: Never smoker Alcohol: alcohol intake: current alcohol intake frequency: holiday/special occasion details: Current some day social Substance Use: substance use type: does not use Dietary Habits: caffeine: Yes caffeine comment: occasional Type: coffee Review Of Systems (GEN) - Review of Systems Generalized/Overall Review: Absent: Weakness, Chills, Fever EENTM: Present: No Symptoms Reported Respiratory: Absent: Cough, Shortness of Breath Cardiac: Absent: Chest Pain, Edema, Palpitations Abdominal: Present: Nausea, Abdominal Pain, Bright blood from rectum. Absent: Vomiting, Hematemesis Genitourinary: Present: No Symptoms Reported Musculoskeletal: Present: No Symptoms Reported Neurological: Present: No Symptoms Reported Skin: Present: No Symptoms Reported Immunizations: IMMUNIZATION HX Immunizations Up to Date Yes History of Influenza Vaccine Yes Hx Pneumococcal Vaccination No Allergies/Adverse Reactions: Allergies Allergy/AdvReac Type Severity Reaction Status Date / Time No Known Allergies Allergy Verified 04/12/19 10:48 Home Medications: HOME MEDICATIONS amlodipine 10 mg tablet 10 mg PO DAILY #90 tab 10/15/18 [Last Taken 04/01/19] chlorthalidone 25 mg tablet 25 mg PO DAILY #90 tab 10/15/18 [Last Taken 04/01/19] sertraline 100 mg tablet 200 mg PO DAILY #180 tab 01/13/19 [Last Taken 04/01/19] Loperamide HCl [Imodium] 2 mg PO PRN PRN #60 cap 03/13/19 [Last Taken Unknown] Lisinopril [Zestril] 40 mg PO DAILY 03/24/19 [Last Taken 04/01/19] Gabapentin 400 mg PO QID #120 cap 03/29/19 [Last Taken Unknown] Omeprazole [Prilosec] 20 mg PO DAILY #30 capsule.sa 03/29/19 [Last Taken 04/01/19] Dicyclomine HCl [Bentyl] 20 mg PO QID #120 tab 04/03/19 [Last Taken Unknown] Apriso 0.375 gram capsule,extended release 1.5 g PO DAILY 42 Days #168 cap NS 04/05/19 [Last Taken Unknown] hydrocodone 10 mg-acetaminophen 325 mg tablet 1 tab PO QID PRN #120 tab 04/12/19 [Last Taken Unknown] ondansetron 8 mg disintegrating tablet 8 mg PO Q6H PRN #90 tab 04/12/19 [Last Taken Unknown] Exam - Exam Vital Signs: Vital Signs - Last Taken Temp 36.8 C 04/02/19 18:14 Pulse 67 04/02/19 18:14 Resp 16 04/02/19 18:14 BP 141/60 H 04/02/19 18:14 Pulse Ox 100 04/02/19 18:14 Constitutional: Present: Alert, Oriented x3, Cooperative ENT Exam: Present: hearing grossly normal Eye Exam: bilateral eye: normal inspection Respiratory: Present: lungs clear, normal breath sounds Cardiovascular/Chest: Present: regular rate, rhythm, no murmur Peripheral Pulses: radial (R): 2+, radial (L): 2+ Abdomen: Present: Normal bowel sounds, soft, nondistended, tender - diffuse Extremity: Present: normal inspection Skin Exam: Present: normal color, warm/dry, no cyanosis Lymphatic: Present: no adenopathy Neurologic: Present: alert, normal mood/affect, oriented x 3 Appearance: Present: appropriate appearance, appropriate insight Eye contact: Present: cooperative, good eye contact, normal speech Thoughts: Present: normal thought pattern, no apparent hallucination Diagnostic Studies: Abnormal Lab Results 04/02/19 04/02/19 04/02/19 Range/Units 10:24 10:24 15:16 WBC 11.8 H (4.0-10.5) K/mm3 Hgb (12.5-16.0) gm/dL MCHC 31.5 L (32-36) g/dl RDW 17.2 H (11.5-14.0) % Immature Gran % (Auto) 4.20 H (0.001-0.429) % Immature Gran # (Auto) 0.49 H (0.000-0.0310) K/mm3 Lymphocytes % 18.0 L (20-51) % Neutrophils # 8.0 H (1.3-6.0) K/mm3 Anion Gap 13.9 H (6.8-13.8) mmol/L BUN/Creatinine Ratio 8.1 L (9.0-21.6) Random Glucose 111 H (70-110) mg/dL AST 49 H (0-48) U/L Total Protein 5.4 L (6.2-8.2) gm/dL Albumin 2.9 L (3.4-5.0) gm/dl Lipase 68 L (73-393) U/L Urine Mucus Few - 1+ H (NONE) 04/02/19 Range/Units 18:48 WBC (4.0-10.5) K/mm3 Hgb 11.6 L (12.5-16.0) gm/dL MCHC (32-36) g/dl RDW (11.5-14.0) % Immature Gran % (Auto) (0.001-0.429) % Immature Gran # (Auto) (0.000-0.0310) K/mm3 Lymphocytes % (20-51) % Neutrophils # (1.3-6.0) K/mm3 Anion Gap (6.8-13.8) mmol/L BUN/Creatinine Ratio (9.0-21.6) Random Glucose (70-110) mg/dL AST (0-48) U/L Total Protein (6.2-8.2) gm/dL Albumin (3.4-5.0) gm/dl Lipase (73-393) U/L Urine Mucus (NONE) Laboratory Results WBC 11.8 K/mm3 (4.0-10.5) H 04/02/19 10:24 RBC 4.44 M/mm3 (4.2-5.4) 04/02/19 10:24 Hgb 11.6 gm/dL (12.5-16.0) L 04/02/19 18:48 Hct 37.4 % (37.0-47.0) 04/02/19 18:48 MCV 89.4 fl (78-100) 04/02/19 10:24 MCH 28.2 pg (27-31) 04/02/19 10:24 MCHC 31.5 g/dl (32-36) L 04/02/19 10:24 RDW 17.2 % (11.5-14.0) H 04/02/19 10:24 Plt Count 364 K/mm3 (150-450) 04/02/19 10:24 MPV 9.5 fl (8-12.5) 04/02/19 10:24 Immature Gran % (Auto) 4.20 % (0.001-0.429) H 04/02/19 10:24 Immature Gran # (Auto) 0.49 K/mm3 (0.000-0.0310) H 04/02/19 10:24 68.2 % (42-75.0) 04/02/19 10:24 18.0 % (20-51) L 04/02/19 10:24 8.0 % (0.0-9) 04/02/19 10:24 1.1 % (0.0-3.0) 04/02/19 10:24 0.5 % (0.0-1.0) 04/02/19 10:24 Nucleated RBC % 0.0 k/mm3 (0-1) 04/02/19 10:24 8.0 K/mm3 (1.3-6.0) H 04/02/19 10:24 2.12 k/mm3 (1.5-3.5) 04/02/19 10:24 0.9 k/mm3 (0.0-1.0) 04/02/19 10:24 0.1 k/mm3 (0.0-0.7) 04/02/19 10:24 Absolute Basophils 0.1 k/mm3 (0.0-0.1) 04/02/19 10:24 Sodium 141 mmol/L (132-142) 04/02/19 10:24 141 mmol/L (130-142) 04/02/19 10:24 Potassium 4.1 mmol/L (3.4-4.6) D 04/02/19 10:24 Chloride 104 mmol/L (97-106) 04/02/19 10:24 Carbon Dioxide 27.2 mmol/L (24-32.6) 04/02/19 10:24 13.9 mmol/L (6.8-13.8) H 04/02/19 10:24 BUN 5 mg/dL (3-23) D 04/02/19 10:24 0.62 mg/dL (0.4-1.4) 04/02/19 10:24 Est GFR (Non-Af Amer) 105 mL/min (60-130) 04/02/19 10:24 8.1 (9.0-21.6) L 04/02/19 10:24 111 mg/dL (70-110) H 04/02/19 10:24 Calcium 9.0 mg/dL (7.9-10.9) 04/02/19 10:24 Calcium Adj for Albumin 9.6 mg/dL (8.4-10.2) 04/02/19 10:24 0.2 mg/dL (0.0-1.1) 04/02/19 10:24 AST 49 U/L (0-48) H 04/02/19 10:24 ALT 32 U/L (19-67) 04/02/19 10:24 102 U/L (50-170) 04/02/19 10:24 5.4 gm/dL (6.2-8.2) L 04/02/19 10:24 2.9 gm/dl (3.4-5.0) L 04/02/19 10:24 68 U/L (73-393) L 04/02/19 10:24 Yellow 04/02/19 15:16 Clear (CLEAR) 04/02/19 15:16 8.5 pH (5.0-7.0) 04/02/19 15:16 Ur Specific [place] 1.015 SP.GR. (1.005-1.010) 04/02/19 15:16 Negative mg/dL (NEGATIVE) 04/02/19 15:16 Negative mg/dL (NEGATIVE) 04/02/19 15:16 Negative mg/dL (NEGATIVE) 04/02/19 15:16 Negative /ul (NEGATIVE) 04/02/19 15:16 Negative (NEGATIVE) 04/02/19 15:16 Negative mg/dl (NEGATIVE) 04/02/19 15:16 Normal EU/dl (NORMAL) 04/02/19 15:16 Ur Leukocyte Esterase Negative /ul (NEGATIVE) 04/02/19 15:16 None seen /hpf (0-5) 04/02/19 15:16 0-5 /hpf (0-5) 04/02/19 15:16 Ur Epithelial Cells 0-5 /hpf (0-5) 04/02/19 15:16 Trace (NONE) 04/02/19 15:16 Few - 1+ (NONE) H 04/02/19 15:16 No culture indicated 04/02/19 15:16 Assessment/Plan - Narrative Narrative: Tuyet is a 58 yo female with chronic abdominal pain but report of new onset lower GI bleed. Hemoglobin 12.5. Will admit to observation and get serial hemograms. Bleeding by report is likely lower GI bleed. No bleeding observed in the ER. Will obtain EGD and colonscopy records from [facility]. If bleeding is identified and persists will consult surgery. - Assessment/Plan (1) Lower GI bleed Problem: Acute (2) Abdominal pain Problem: Acute
[2019-04-03 00:48] LABS: Hemoglobin 11.3 gm/dL (12.5-16.0)
[2019-04-03] MEDS: oxyCODONE HCL/ACETAMINOPHEN 1 TAB TABLET PO PRN ×2 (05:36→10:02)
[2019-04-03] MEDS: ONDANSETRON HCL/PF 2 MG/ML VIAL IV PRN (05:54)
[2019-04-03 06:55] LABS: Hematocrit 38.8 % (37.0-47.0); Hemoglobin 11.9 gm/dL (12.5-16.0)
[2019-04-03] MEDS: HYDROmorphone HCL 2 MG TABLET PO PRN (07:12)
[2019-04-03] MEDS ORDERED: DICYCLOMINE HCL 20 MG TABLET PO SCH (09:00)
--- NOTE | 2019-04-03 09:22 | DS ---
(1) Abdominal pain Problem: Acute (2) Lower GI bleed Problem: Acute Description of Stay: Tuyet is a 58 yo female that was admitted due to reported bright red bloody stool. Her initial hemoglobin was 12.5. She was started on IVF and had serial hemograms. She did not have any witnessed bloody stools while in the hospital and serial hemograms were stable. There was an initial drop to 11.6 potentially due to IV fluids. Subsequent hemoglobin was 11.3 and then 11.9. She continued to report abdominal pain unchanged from her usual. She has had multiple CT scans done in the last month without any significant findings and it was felt she did not need another as her abdominal pain was unchanged. With no evidence of significant GI Bleed she will be discharged to home. She reports Dr. [facility] is currently setting her up with another GI specialist as Dr. Luz is no longer at [place]. She did report early satiety and feeling nauseated after eating. She also reports her abdominal pain was worse after eating. Should could consider a gastric emptying study to evaluate motility. Procedures Performed: none Results and Findings: Lab Pending Results 04/02/19 10:24: WBC 11.8 H, RBC 4.44, Hgb 12.5, Hct 39.7, MCV 89.4, MCH 28.2, MCHC 31.5 L, RDW 17.2 H, Plt Count 364, MPV 9.5, Immature Gran % (Auto) 4.20 H, Immature Gran # (Auto) 0.49 H, Neutrophils % 68.2, Lymphocytes % 18.0 L, Monocytes % 8.0, Eosinophils % 1.1, Basophils % 0.5, Nucleated RBC % 0.0, Neutrophils # 8.0 H, Lymphocytes # 2.12, Monocytes # 0.9, Eosinophils # 0.1, Absolute Basophils 0.1 04/02/19 10:24: Sodium 141, Plasma Sodium 141, Potassium 4.1 D, Chloride 104, Carbon Dioxide 27.2, Anion Gap 13.9 H, BUN 5 D, Creatinine 0.62, Est GFR (Non- Af Amer) 105, BUN/Creatinine Ratio 8.1 L, Random Glucose 111 H, Calcium 9.0, Calcium Adj for Albumin 9.6, Total Bilirubin 0.2, AST 49 H, ALT 32, Alkaline Phosphatase 102, Total Protein 5.4 L, Albumin 2.9 L, Lipase 68 L 04/02/19 15:16: Urine Color Yellow, Urine Appearance Clear, Urine pH 8.5, Ur Specific [place] 1.015, Urine Protein Negative, Urine Glucose (UA) Negative, Urine Ketones Negative, Urine Blood Negative, Urine Nitrate Negative, Urine Bilirubin Negative, Urine Urobilinogen Normal, Ur Leukocyte Esterase Negative, Urine RBC None seen, Urine WBC 0-5, Ur Epithelial Cells 0-5, Urine Bacteria Trace, Urine Mucus Few - 1+ H, Urine Culture Comments No culture indicated 04/02/19 18:48: Hgb 11.6 L, Hct 37.4 04/03/19 00:45: Hgb 11.3 L, Hct 38.0 04/03/19 06:45: Hgb 11.9 L, Hct 38.8 Discharge Location: Home Disposition: Home self-care Condition: Stable Discharge Activity: Activity as tolerated Discharge Diet: General/regular food Referrals: Toni Addison DO [Primary Care Provider] - (Keep scheduled appointment) Problem Oriented Discharge Instructions to Patient/Family: Gastrointestinal Bleeding, [id number] Prescriptions (Any new or edited meds): Dicyclomine HCl [Bentyl] 20 mg PO QID #120 tab Complete Home Medications List: Complete Home Medication List: amlodipine 10 mg tablet 10 mg PO DAILY #90 tab 10/15/18 chlorthalidone 25 mg tablet 25 mg PO DAILY #90 tab 10/15/18 sertraline 100 mg tablet 200 mg PO DAILY #180 tab 01/13/19 Loperamide HCl [Imodium] 2 mg PO PRN PRN #60 cap 03/13/19 Lisinopril [Zestril] 40 mg PO DAILY 03/24/19 Gabapentin 400 mg PO QID #120 cap 03/29/19 HYDROmorphone HCL [Dilaudid] 4 mg PO Q4H PRN #90 tab 03/29/19 Omeprazole [Prilosec] 20 mg PO DAILY #30 capsule.sa 03/29/19 Ondansetron [Zofran Odt] 4 mg PO Q6H PRN #20 tab.rapdis 03/29/19 Mesalamine [Delzicol] 400 mg PO QID 04/02/19 Dicyclomine HCl [Bentyl] 20 mg PO QID #120 tab 04/03/19
[2019-04-03 10:16] VITALS: BP 160/70
== END 2019-04-03 10:41 | disposition home or self-care (01) ==
LOC: MS 09:44 → ER 09:44 → MS 12:34
PROVIDERS: ADMIT Family Medicine; ATTEND Family Medicine
CPT/HCPCS: 36415; 74019; 74020; 80053; 81001; 83690; 85014; 85018; 85025; 96361; 96374; 96375; 99285; G0378; J2405

== ENCOUNTER 2019-04-19 18:39 | Observation (INO) ==
[2019-04-19] MEDS ORDERED: NORMAL SALINE 1,000 ML IV PRN (18:52)
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
[2019-04-19 19:11] LABS: Hematocrit 43.9 % (37.0-47.0); Hemoglobin 14.5 gm/dL (12.5-16.0); Mean Cell Volume 88.3 fl (78-100); Mean Corpuscular Hemoglobin 29.2 pg (27-31); Neutrophil # 7.4 K/mm3 (1.3-6.0); Platelet Count 332 K/mm3 (150-450); Red Blood Count 4.97 M/mm3 (4.2-5.4); Red Cell Distribution Width 16.3 % (11.5-14.0); White Blood Count 11.6 K/mm3 (4.0-10.5)
[2019-04-19 19:40] LABS: ALT 16 U/L (19-67); AST 22 U/L (0-48); Albumin * 3.7 gm/dl (3.4-5.0); Alkaline Phosphatase * 116 U/L (50-170); Anion Gap 13.2 mmol/L (6.8-13.8); BUN/Creatinine Ratio 10.3 (9.0-21.6); Bilirubin, Total 0.4 mg/dL (0.0-1.1); Blood Urea Nitrogen 18 mg/dL (3-23); Ca. Corrected For Albumin 9.7 mg/dL (8.4-10.2); Calcium * 9.8 mg/dL (7.9-10.9); Carbon Dioxide 26.9 mmol/L (24-32.6); Chloride 97 mmol/L (97-106); Glucose * 120 mg/dL (70-110); Magnesium 1.6 mg/dL (1.2-2.8); Potassium 3.1 mmol/L (3.4-4.6); Sodium 134 mmol/L (132-142); TSH * 0.428 uIU/mL (0.358-3.74); Troponin I Less than 0.017 ng/mL (0.00-0.10)
[2019-04-19 20:19] LABS: Urine Bilirubin Negative (NEGATIVE); Urine Blood Negative /ul (NEGATIVE); Urine Ketone Negative (NEGATIVE); Urine Nitrite Negative (NEGATIVE); Urine Protein Negative (NEGATIVE); Urine Specific Gravity <=1.005 SP.GR. (1.005-1.010); Urine Urobilinogen Normal (NORMAL)
[2019-04-19] MEDS ORDERED: ACETAMINOPHEN 500 MG TABLET PO ONE (20:23)
[2019-04-19 20:26] LABS: Urine Appearance Clear (CLEAR); Urine Color Pale Yellow
[2019-04-19 20:27] LABS: Urine Bacteria TRACE; Urine RBC None Seen /hpf (0-5); Urine WBC None Seen /hpf (0-5)
[2019-04-19 20:32] LABS: Cocaine Ur Negative (NEGATIVE); Urine Barbiturate Negative (NEGATIVE); Urine Benzodiazepines Negative (NEGATIVE); Urine PCP Negative (NEGATIVE); Urine THC Negative (NEGATIVE)
[2019-04-19 20:33] LABS: Urine Opiates Positive (NEGATIVE)
[2019-04-19] MEDS ORDERED: NORMAL SALINE 1,000 ML IV ONE (20:46)
[2019-04-19] MEDS ORDERED: POTASSIUM CHLORIDE 20 MEQ TABLET.SA PO ONE (20:59)
[2019-04-19] MEDS ORDERED: ONDANSETRON 8 MG TAB.RAPDIS PO PRN (22:36)
[2019-04-19] MEDS ORDERED: ACETAMINOPHEN PO PRN (22:36)
[2019-04-19] MEDS ORDERED: HYDROCODONE PO PRN (22:36)
[2019-04-20] MEDS ORDERED: HYDROcodone/ACETAMINOPHEN 1 EACH TABLET PO PRN (00:36)
[2019-04-20] MEDS: POTASSIUM CHLORIDE 20 MEQ in NORMAL SALINE 1,000 ML IV SCH ×2 (02:05→11:06)
[2019-04-20 05:57] LABS: Albumin * 2.8 gm/dl (3.4-5.0); Anion Gap 14.8 mmol/L (6.8-13.8); BUN/Creatinine Ratio 14.3 (9.0-21.6); Bilirubin, Total 0.4 mg/dL (0.0-1.1); Ca. Corrected For Albumin 8.6 mg/dL (8.4-10.2); Carbon Dioxide 24.8 mmol/L (24-32.6); Potassium 3.6 mmol/L (3.4-4.6); Total Protein 5.3 gm/dL (6.2-8.2)
[2019-04-20 05:58] LABS: Hematocrit 35.9 % (37.0-47.0); Hemoglobin 11.3 gm/dL (12.5-16.0); Mean Cell Volume 90.7 fl (78-100); Mean Corpuscular Hemoglobin 28.5 pg (27-31); Mean Corpuscular Hgb Conc 31.5 g/dl (32-36); Mean Platelet Volume 10.3 fl (8-12.5); Neutrophil # 3.9 K/mm3 (1.3-6.0); Neutrophil % 49.9 % (42-75.0); Platelet Count 292 K/mm3 (150-450); Red Blood Count 3.96 M/mm3 (4.2-5.4); Red Cell Distribution Width 16.5 % (11.5-14.0); White Blood Count 7.8 K/mm3 (4.0-10.5)
[2019-04-20] MEDS: DICYCLOMINE HCL 20 MG TABLET PO SCH ×3 (08:09→16:49)
[2019-04-20] MEDS: GABAPENTIN 400 MG CAPSULE PO SCH ×3 (08:10→16:50)
[2019-04-20] MEDS ORDERED: ACETAMINOPHEN 500 MG TABLET PO PRN (08:29)
[2019-04-20] MEDS ORDERED: OMEPRAZOLE 20 MG CAPSULE.SA PO SCH (09:00)
[2019-04-20] MEDS ORDERED: SERTRALINE HCL 100 MG TABLET PO SCH (09:00)
[2019-04-20] MEDS ORDERED: PANTOPRAZOLE SODIUM 20 MG TABLET.DR PO SCH (09:00)
[2019-04-20] MEDS: MESALAMINE 400 MG CAPSULE PO SCH ×3 (09:04→16:49)
--- NOTE | 2019-04-20 14:13 | HPDIS ---
Chief Complaint - Chief Complaint Date of Service: 04/20/19 Time of Service: 08:00 Chief Complaint: hypotension, orthostatic hypotension, weakness, History of Present Illness: Pt became weak and lightheaeded yesterday and fell face first into a door jam causing a small laceration just above the nose on the forehead. This was witnessed by a pharmacy delivery stock clerk. She fell to the floor. No other injury. 911 was called and she came to the hospital via EMS. In ER she was found to be dehydrated and had ROSA with prerenal azotemia and hypokalemia. She was started on IV NS and has received 3 liters since admission. She is feeling alot better even though she still has a little lighthededness. She has eaten well today. No bowel issues this admission. She will go home with home health. 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 Flores about 1 week ago. Now it is hot, red, swollen and painful. Chronic cough (Chronic) Has had a cough for the past several months. It is a dry hacking cough that she cannot get rid of. In reviewing her medicine she is on 40 mg of lisinopril daily and I suspect that she has a 'Pril cough. Change to valsartan. Panic attack (Acute) IBS (irritable bowel syndrome) (Acute) Depression (Chronic) increase sertraline to 100 mg daily. Status post fall (Acute) Swelling of right knee joint (Acute) Knee pain, right (Acute) Piriformis syndrome of right side (Chronic) Anxiety (Chronic) Piriformis syndrome (Acute) Back pain with sciatica (Chronic) Iron deficiency (Chronic) Vitamin D deficiency (Acute) Chronic pain (Chronic) Normocytic anemia (Chronic) Abdominal pain (Acute) start ranitidine 150 mg BID. Chest pain (Acute) Upper respiratory infection (Acute) Bronchitis (Acute) CVA (cerebral infarction) (Chronic) Head ache (Acute) Migraine (Chronic) Contusion of chest (Acute) Toe fracture, right (Acute) Vomiting (Acute) Ileitis (Chronic) Chronic low back pain (Chronic) Hypokalemia (Resolved) Iron (Fe) deficiency anemia (Chronic) Multiple rib fractures (Acute) Back pain (Acute) Laceration of scalp without complication (Acute) Contusion of head (Acute) Dysuria (Acute) Low back pain (Acute) Canker sores oral (Acute) Cold sore (Acute) Muscle spasm (Acute) Back pain (Acute) Sprain of ribs, initial encounter (Acute) Sinusitis (Acute) Elevated liver enzymes (Acute) Right flank pain (Acute) UTI (urinary tract infection) (Acute) Right lower quadrant abdominal pain (Acute) Acute thoracic back pain (Acute) Fall at home (Acute) Dehydration symptoms (Resolved) Syncope due to orthostatic hypotension (Acute) Fibula upper end fracture (Acute) Diarrhea (Acute) Right ankle sprain (Acute) Sciatica (Acute) Fall (Acute) Vomiting and diarrhea (Acute) Chronic back pain (Chronic) Chronic low back pain with right-sided sciatica (Acute) Sciatica of right side (Acute) Acute renal failure (Acute) Enteritis (Acute) Pyelonephritis, acute (Acute) Dehydration (Resolved) SIRS (systemic inflammatory response syndrome) (Acute) Hypertension (Chronic) ROSA (acute kidney injury) (Resolved) Crohn's disease (Suspected) Aphthous ulcer of mouth (Chronic) B12 deficiency (Acute) Chronic abdominal pain (Chronic) Constipation (Acute) CVA (cerebral vascular accident) Onset Date: ~07/2014 Colonoscopy Onset Date: Unknown Refused Crohns disease Bruising Onset Date: 01/24/14 Chronic low back pain Onset Date: 10/08/13 Cystitis Onset Date: Unknown Essential hypertension Onset Date: Unknown Fasciitis Onset Date: 03/11/14 Left trapezius GERD (gastroesophageal reflux disease) Onset Date: 11/02/13 Hx of renal colic Onset Date: 11/05/13 Kidney stone Onset Date: ~12/2012 [place] stent placed for 1 week Spondylisthesis Onset Date: Unknown TMJ (temporomandibular joint disorder) Onset Date: 03/11/14 Vitamin D deficiency Onset Date: 02/18/14 Chest pain Onset Date: 01/24/14 Left ankle sprain Onset Date: ~03/2017 Surgical History: Surgical History (Updated 02/02/19 @ 11:44 by Krys Flores MD) Cystoureteroscopy w/stent placement with Lithoclast 10/2012 Renal stone. H/O colonoscopy Onset Date: 05/14/18 [facility]-Dr. Buenrostro polyps History of back surgery 1 reno, 6 pins 05/2008 History of esophagogastroduodenoscopy Onset Date: 05/14/18 [facility]-Dr Buenrostro-polyps Hx of appendectomy 1976 Hx of cystoscopy w/stent removal. 10/2012 Renal stone Ia [facility] Hx of hysterectomy Left one ovary. Unknown date. Hx of laminectomy Unknown Date Laminoplasty Family History: Family History (Updated 04/13/18 @ 11:09 by Kesha Cervantes CMA) Brother Healthy adult male Daughter Kidney stone Father , Age 77 Mesothelioma Mother Cancer Ovarian Sister Healthy female Son Kidney stone Other Bruising CVA (cerebral vascular accident) Chest pain Chronic low back pain Cystitis Essential hypertension Fasciitis GERD (gastroesophageal reflux disease) Hx of renal colic Left ankle sprain Spondylisthesis TMJ (temporomandibular joint disorder) Vitamin D deficiency Social History: (Last Updated 04/19/19 @ 21:50 by Katerin Hayes RN) Social History: Marital status: lives independently: Yes household members: none current occupational status: disabled Service: No Tobacco: Smoking Status: Never smoker Alcohol: alcohol intake: current alcohol intake frequency: holiday/special occasion details: Current some day social Substance Use: substance use type: does not use Dietary Habits: caffeine: Yes caffeine comment: occasional Type: coffee, tea Review Of Systems (GEN) - Review of Systems Generalized/Overall Review: Present: Weakness, Malaise EENTM: Present: No Symptoms Reported Respiratory: Present: No Symptoms Reported Cardiac: Present: Other - Light headedness Abdominal: Present: No Symptoms Reported Genitourinary: Present: No Symptoms Reported Musculoskeletal: Present: No Symptoms Reported Neurological: Present: Weakness Endocrine: Present: No Symptoms Reported Immunizations: IMMUNIZATION HX Immunizations Up to Date Yes History of Influenza Vaccine Yes Hx Pneumococcal Vaccination No Allergies/Adverse Reactions: Allergies Allergy/AdvReac Type Severity Reaction Status Date / Time No Known Allergies Allergy Verified 04/19/19 18:45 Home Medications: HOME MEDICATIONS sertraline 100 mg tablet 200 mg PO DAILY #180 tab 01/13/19 [Last Taken 04/18/19 23:00] Lisinopril [Zestril] 40 mg PO DAILY 03/24/19 [Last Taken 04/19/19 09:00] Gabapentin 400 mg PO QID #120 cap 03/29/19 [Last Taken 04/19/19 09:00] Omeprazole [Prilosec] 20 mg PO DAILY #30 capsule.sa 03/29/19 [Last Taken 04/19/19 09:00] Dicyclomine HCl [Bentyl] 20 mg PO QID #120 tab 04/03/19 [Last Taken 04/19/19 09:00] Apriso 0.375 gram capsule,extended release 1.5 g PO DAILY 42 Days #168 cap NS 04/05/19 [Last Taken 04/19/19 09:00] ondansetron 8 mg disintegrating tablet 8 mg PO Q6H PRN #90 tab 04/12/19 [Last Taken Unknown] Acetaminophen [Tylenol] 500 mg PO Q4H PRN tab 04/20/19 [Last Taken Unknown] hydromorphone 2 mg tablet 2 mg PO Q4H PRN #30 tab 04/20/19 [Last Taken Unknown] Exam - Exam Vital Signs: Vital Signs - Last Taken Temp 36.7 C 04/20/19 10:10 Pulse 65 04/20/19 10:10 Resp 12 04/20/19 10:10 BP 105/56 04/20/19 10:10 Pulse Ox 97 04/20/19 10:10 Constitutional: Present: Alert, Oriented x3, Cooperative, Well developed, Well nourished, Mild distress, Middle aged ENT Exam: Present: normal ENT inspection, hearing grossly normal, pharynx normal Eye Exam: bilateral eye: normal inspection, PERRL, EOMI Neck: Present: non-tender, full range of motion Back Exam: Present: normal inspection, no CVA tenderness, no vertebral tenderness Respiratory: Present: chest non-tender, lungs clear, normal breath sounds Cardiovascular/Chest: Present: normal peripheral pulses, regular rate, rhythm, no chest tenderness, no edema, no gallop, no JVD, no murmur, no rub Peripheral Pulses: carotid (R): 2+, carotid (L): 2+, radial (R): 2+, radial (L): 2+ Abdomen: Present: Normal bowel sounds, soft, nontender, nondistended /Rectal: Present: Exam deferred, External genitalia normal Extremity: Present: normal range of motion, non-tender, normal inspection, no pedal edema, no calf tenderness, normal capillary refill Skin Exam: Present: normal color, warm/dry, no cyanosis Lymphatic: Present: no adenopathy Neurologic: Present: supreme court judge II-XII nml as tested Appearance: Present: appropriate appearance, appropriate insight, neat Eye contact: Present: cooperative, good eye contact, normal speech Thoughts: Present: normal thought pattern, no apparent hallucination Diagnostic Studies: Abnormal Lab Results 04/19/19 04/19/19 04/19/19 Range/Units 19:06 19:06 20:10 WBC 11.6 H (4.0-10.5) K/mm3 RBC (4.2-5.4) M/mm3 Hgb (12.5-16.0) gm/dL Hct (37.0-47.0) % MCHC (32-36) g/dl RDW 16.3 H (11.5-14.0) % Immature Gran # (Auto) 0.05 H (0.000-0.0310) K/mm3 Eosinophils % (0.0-3.0) % Neutrophils # 7.4 H (1.3-6.0) K/mm3 Potassium 3.1 L (3.4-4.6) mmol/L Anion Gap (6.8-13.8) mmol/L Creatinine 1.74 H D (0.4-1.4) mg/dL Est GFR (Non-Af Amer) 32 L D (60-130) mL/min Random Glucose 120 H (70-110) mg/dL ALT 16 L (19-67) U/L Total Protein (6.2-8.2) gm/dL Albumin (3.4-5.0) gm/dl Urine Opiates Screen Positive H (NEGATIVE) 04/20/19 04/20/19 Range/Units 05:35 05:35 WBC (4.0-10.5) K/mm3 RBC 3.96 L (4.2-5.4) M/mm3 Hgb 11.3 L (12.5-16.0) gm/dL Hct 35.9 L (37.0-47.0) % MCHC 31.5 L (32-36) g/dl RDW 16.5 H (11.5-14.0) % Immature Gran # (Auto) (0.000-0.0310) K/mm3 Eosinophils % 4.1 H (0.0-3.0) % Neutrophils # (1.3-6.0) K/mm3 Potassium (3.4-4.6) mmol/L Anion Gap 14.8 H (6.8-13.8) mmol/L Creatinine (0.4-1.4) mg/dL Est GFR (Non-Af Amer) (60-130) mL/min Random Glucose (70-110) mg/dL ALT 14 L (19-67) U/L Total Protein 5.3 L (6.2-8.2) gm/dL Albumin 2.8 L (3.4-5.0) gm/dl Urine Opiates Screen (NEGATIVE) Laboratory Results WBC 7.8 K/mm3 (4.0-10.5) D 04/20/19 05:35 RBC 3.96 M/mm3 (4.2-5.4) L 04/20/19 05:35 Hgb 11.3 gm/dL (12.5-16.0) L 04/20/19 05:35 Hct 35.9 % (37.0-47.0) L 04/20/19 05:35 MCV 90.7 fl (78-100) 04/20/19 05:35 MCH 28.5 pg (27-31) 04/20/19 05:35 MCHC 31.5 g/dl (32-36) L 04/20/19 05:35 RDW 16.5 % (11.5-14.0) H 04/20/19 05:35 Plt Count 292 K/mm3 (150-450) 04/20/19 05:35 MPV 10.3 fl (8-12.5) 04/20/19 05:35 Immature Gran % (Auto) 0.30 % (0.001-0.429) 04/20/19 05:35 Immature Gran # (Auto) 0.02 K/mm3 (0.000-0.0310) 04/20/19 05:35 49.9 % (42-75.0) 04/20/19 05:35 37.2 % (20-51) 04/20/19 05:35 7.9 % (0.0-9) 04/20/19 05:35 4.1 % (0.0-3.0) H 04/20/19 05:35 0.6 % (0.0-1.0) 04/20/19 05:35 Nucleated RBC % 0.0 k/mm3 (0-1) 04/20/19 05:35 3.9 K/mm3 (1.3-6.0) 04/20/19 05:35 2.91 k/mm3 (1.5-3.5) 04/20/19 05:35 0.6 k/mm3 (0.0-1.0) 04/20/19 05:35 0.3 k/mm3 (0.0-0.7) 04/20/19 05:35 Absolute Basophils 0.1 k/mm3 (0.0-0.1) 04/20/19 05:35 Sodium 142 mmol/L (132-142) 04/20/19 05:35 142 mmol/L (130-142) 04/20/19 05:35 Potassium 3.6 mmol/L (3.4-4.6) 04/20/19 05:35 Chloride 106 mmol/L (97-106) 04/20/19 05:35 Carbon Dioxide 24.8 mmol/L (24-32.6) 04/20/19 05:35 14.8 mmol/L (6.8-13.8) H 04/20/19 05:35 BUN 13 mg/dL (3-23) 04/20/19 05:35 0.91 mg/dL (0.4-1.4) 04/20/19 05:35 Est GFR (Non-Af Amer) 67 mL/min (60-130) D 04/20/19 05:35 14.3 (9.0-21.6) 04/20/19 05:35 99 mg/dL (70-110) 04/20/19 05:35 Calcium 8.0 mg/dL (7.9-10.9) 04/20/19 05:35 Calcium Adj for Albumin 8.6 mg/dL (8.4-10.2) 04/20/19 05:35 Magnesium 1.6 mg/dL (1.2-2.8) 04/19/19 19:06 0.4 mg/dL (0.0-1.1) 04/20/19 05:35 AST 19 U/L (0-48) 04/20/19 05:35 ALT 14 U/L (19-67) L 04/20/19 05:35 88 U/L (50-170) 04/20/19 05:35 Less than 0.017 ng/mL (0.00-0.10) 04/19/19 19:06 5.3 gm/dL (6.2-8.2) L 04/20/19 05:35 2.8 gm/dl (3.4-5.0) L 04/20/19 05:35 TSH 0.428 uIU/mL (0.358-3.74) 04/19/19 19:06 Pale yellow 04/19/19 20:10 Clear (CLEAR) 04/19/19 20:10 6.0 pH (5.0-7.0) 04/19/19 20:10 Ur Specific [place] <=1.005 SP.GR. (1.005-1.010) 04/19/19 20:10 Negative mg/dL (NEGATIVE) 04/19/19 20:10 Negative mg/dL (NEGATIVE) 04/19/19 20:10 Negative mg/dL (NEGATIVE) 04/19/19 20:10 Negative /ul (NEGATIVE) 04/19/19 20:10 Negative (NEGATIVE) 04/19/19 20:10 Negative mg/dl (NEGATIVE) 04/19/19 20:10 Normal EU/dl (NORMAL) 04/19/19 20:10 Ur Leukocyte Esterase Negative /ul (NEGATIVE) 04/19/19 20:10 None seen /hpf (0-5) 04/19/19 20:10 None seen /hpf (0-5) 04/19/19 20:10 Ur Epithelial Cells Trace /hpf (0-5) 04/19/19 20:10 Trace (NONE) 04/19/19 20:10 No culture indicated 04/19/19 20:10 Positive (NEGATIVE) H 04/19/19 20:10 Negative (NEGATIVE) 04/19/19 20:10 Ur Phencyclidine Scrn Negative (NEGATIVE) 04/19/19 20:10 Urine Amphetamine Negative (NEGATIVE) 04/19/19 20:10 U Benzodiazepines Scrn Negative (NEGATIVE) 04/19/19 20:10 Negative (NEGATIVE) 04/19/19 20:10 Negative (NEGATIVE) 04/19/19 20:10 Assessment/Plan - Narrative Narrative: Marixa has recovered nicely with just rehydration and K+replacement. She is now ambulaory but still feels a little unballanced. She will have home health with nursing and PT. Tuyet Jordan is confined to home due to weakness and poor balance. The need for custodial is for monitoring of vital signs, hydration status, nutritional assessment, education about medications and the need for physical therapy is for strength and balance training. The need for home health care skilled services is directly related to the time spent [id number] with the person. - Assessment/Plan (1) Acute renal insufficiency Problem: Acute (2) Status post fall Problem: Acute (1) Acute renal insufficiency Problem: Acute (2) Status post fall Problem: Acute Description of Stay: Tuyet Jordan was admitted with acute kidney injury and with prerenal azotemia. She is dehydrated. She received 4 L of IV fluid while here. She is fully rehydrated and feeling much better. She has been up unassisted with still occasional lightheadedness. Her vital signs remain normal. Her morning lab this morning is back to normal. She is discharged home. Procedures Performed: none Results and Findings: Lab Pending Results 04/19/19 19:06: WBC 11.6 H, RBC 4.97, Hgb 14.5, Hct 43.9, MCV 88.3, MCH 29.2, MCHC 33.0, RDW 16.3 H, Plt Count 332, MPV 10.0, Immature Gran % (Auto) 0.40, Immature Gran # (Auto) 0.05 H, Neutrophils % 64.0, Lymphocytes % 26.6, Monocytes % 7.8, Eosinophils % 0.9, Basophils % 0.3, Nucleated RBC % 0.0, Neutrophils # 7.4 H, Lymphocytes # 3.09, Monocytes # 0.9, Eosinophils # 0.1, Absolute Basophils 0.0 04/19/19 19:06: Sodium 134, Plasma Sodium 134, Potassium 3.1 L, Chloride 97, Carbon Dioxide 26.9, Anion Gap 13.2, BUN 18 D, Creatinine 1.74 H D, Est GFR (Non-Af Amer) 32 L D, BUN/Creatinine Ratio 10.3, Random Glucose 120 H, Calcium 9.8, Calcium Adj for Albumin 9.7, Magnesium 1.6, Total Bilirubin 0.4, AST 22, ALT 16 L, Alkaline Phosphatase 116, Troponin I Less than 0.017, Total Protein 7.0, Albumin 3.7, TSH 0.428 04/19/19 20:10: Urine Color Pale yellow, Urine Appearance Clear, Urine pH 6.0, Ur Specific [place] <=1.005, Urine Protein Negative, Urine Glucose (UA) N egative, Urine Ketones Negative, Urine Blood Negative, Urine Nitrate Negative, Urine Bilirubin Negative, Urine Urobilinogen Normal, Ur Leukocyte Esterase Negative, Urine RBC None seen, Urine WBC None seen, Ur Epithelial Cells Trace, Urine Bacteria Trace, Urine Culture Comments No culture indicated 04/19/19 20:10: Urine Opiates Screen Positive H, Barbiturate Screen Negative, Ur Phencyclidine Scrn Negative, Urine Amphetamine Negative, U Benzodiazepines Scrn Negative, Urine Cocaine Screen Negative, Urine Marijuana (THC) Negative 04/20/19 05:35: WBC 7.8 D, RBC 3.96 L, Hgb 11.3 L, Hct 35.9 L, MCV 90.7, MCH 28.5, MCHC 31.5 L, RDW 16.5 H, Plt Count 292, MPV 10.3, Immature Gran % (Auto) 0.30, Immature Gran # (Auto) 0.02, Neutrophils % 49.9, Lymphocytes % 37.2, Monocytes % 7.9, Eosinophils % 4.1 H, Basophils % 0.6, Nucleated RBC % 0.0, Neutrophils # 3.9, Lymphocytes # 2.91, Monocytes # 0.6, Eosinophils # 0.3, Absolute Basophils 0.1 04/20/19 05:35: Sodium 142, Plasma Sodium 142, Potassium 3.6, Chloride 106, Carbon Dioxide 24.8, Anion Gap 14.8 H, BUN 13, Creatinine 0.91, Est GFR (Non-Af Amer) 67 D, BUN/Creatinine Ratio 14.3, Random Glucose 99, Calcium 8.0, Calcium Adj for Albumin 8.6, Total Bilirubin 0.4, AST 19, ALT 14 L, Alkaline Phosphatase 88, Total Protein 5.3 L, Albumin 2.8 L Discharge Location: Home Disposition: [facility] Agency: [facility] Home Health Condition: Fair Discharge Activity: Activity as tolerated Discharge Diet: General/regular food Referrals: Toni Addison DO [Primary Care Provider] - Additional Patient Instructions (free text): [facility] Home Health new at discharge- nursing and physical therapy. Complete Home Medications List: Complete Home Medication List: sertraline 100 mg tablet 200 mg PO DAILY #180 tab 01/13/19 Lisinopril [Zestril] 40 mg PO DAILY 03/24/19 Gabapentin 400 mg PO QID #120 cap 03/29/19 Omeprazole [Prilosec] 20 mg PO DAILY #30 capsule.sa 03/29/19 Dicyclomine HCl [Bentyl] 20 mg PO QID #120 tab 04/03/19 Apriso 0.375 gram capsule,extended release 1.5 g PO DAILY 42 Days #168 cap NS 04/05/19 ondansetron 8 mg disintegrating tablet 8 mg PO Q6H PRN #90 tab 04/12/19 Acetaminophen [Tylenol] 500 mg PO Q4H PRN tab 04/20/19 hydromorphone 2 mg tablet 2 mg PO Q4H PRN #30 tab 04/20/19
[2019-04-20 23:54] VITALS: BP 0/0
== END 2019-04-20 19:25 | disposition home health service (06) ==
LOC: ER 18:39 → MS 18:39
PROVIDERS: ADMIT Internal Medicine; ATTEND Family Medicine
CPT/HCPCS: 36415; 70450; 72125; 80053; 80307; 81001; 83735; 84443; 84484; 85025; 93005; 96361; 96365; 96366; 99284; G0378